=== PATIENT | female | born 1940 | race Caucasian/White ===

== ENCOUNTER 2019-09-09 13:38 | Inpatient (IN) | payer OTHER ==
--- NOTE | 2019-09-09 14:15 | PDOC ---
History of Present Illness - General Chief Complaint: Irregular Heart Beat Stated Complaint: RAPID HEART RATE Time Seen by Provider: 09/09/19 14:04 History Source: Patient Exam Limitations: No Limitations - History of Present Illness Initial Comments: 79 yo F with a hx CVA with subsequent hemiplegia, atrial fibrillation (on xarelto), CHF, HLD, dementia, COPD, anemia, hypothyroidism, HTN, DM, and GERD presents to the emergency department from [facility] for tachycardia. Per the geriatric nursing assistant (Argelia), the patient had a HR this afternoon in the 180s. The patient was given 15 mg of IV diltiazem. She was given a one time stat order for digoxin 250 mcg at the [place] today. Per the geriatric nursing assistant, she had a PICC line for hydration and vancomycin for an infection. Per the patient (alert and oriented to self and place only), she feels fine and denies the following: headaches, lightheadedness, chest pain, palpitations, SOB, nausea, vomiting, abdominal pain, dysuria, hematuria, diarrhea, and leg pain/swelling. Meds: digoxin: 125 mcg daily, diltiazem: 180 mg ER daily, furosemide 40 mg BID, levothyroxine 25 mcg, metformin 500 mg daily,, on prednisone Past History - Past Medical History Allergies/Adverse Reactions: Allergies Allergy/AdvReac Type Severity Reaction Status Date / Time No Known Allergies Allergy Verified 02/08/16 17:52 Home Medications: Ambulatory Orders Albuterol 0.083% Nebulizer Gail [Ventolin 0.083% Nebulizer Soln -] 1 neb NEB QID 02/08/16 Ammonium Lactate Lotion [Lac-Hydrin 12] 1 applic TP ASDIR 02/08/16 Diltiazem HCl [Diltiazem 24Hr ER (Cd)] 180 mg PO DAILY 02/08/16 Docusate Sodium [Colace -] 100 mg PO BID 02/08/16 Ferrous Sulfate 325 mg PO DAILY 02/08/16 Polyethylene Glycol 3350 [Gavilax] 17 gm PO DAILY 02/08/16 metFORMIN HCL [Metformin HCl] 500 mg PO DAILY 02/08/16 Acetaminophen [Tylenol] 650 mg PO Q6H PRN #0 02/11/16 Ferrous Sulfate [Feosol] 325 mg PO DAILY ud 02/11/16 Morphine *Sr* [Ms Contin -] 15 mg PO BID tablet.sa MDD 2 tabs 02/11/16 Ondansetron [Zuplenz] 4 mg PO BID PRN #0 02/11/16 Oxycodone HCl/Acetaminophen [Percocet 5-325 mg Tablet] 1 combo PO Q8H PRN #0 tablet MDD 3 tabs 02/11/16 Warfarin Na [Coumadin -] 2 mg PO DAILY@1800 tablet 02/11/16 levoFLOXacin [Levaquin -] 250 mg PO DAILY@0600 #5 tablet 02/11/16 Anemia: Yes Asthma: Yes Cancer: (colon per GI consult) Cardiac Disorders: (pt unaware) CVA: Yes (L hemiparesis) COPD: Yes (COPD) CHF: No Dementia: No Diabetes: Yes (per chart) GI Disorders: No Disorders: No HTN: Yes (per MD note) Hypercholesterolemia: No Liver Disease: No Seizures: No Thyroid Disease: No - Surgical History Abdominal Surgery: (hernia repair) Appendectomy: No Cardiac Surgery: No Cholecystectomy: No Lung Surgery: No Neurologic Surgery: No Orthopedic Surgery: No - Immunization History Immunization Up to Date: No - Psycho Social/Smoking Cessation Hx Smoking History: Current some day smoker Have you smoked in the past 12 months: No If you are a former smoker, when did you quit?: 1 year ago Information on smoking cessation initiated: No Hx Alcohol Use: No Drug/Substance Use Hx: No Substance Use Type: None Hx Substance Use Treatment: No Review of Systems - Review of Systems Able to Perform ROS?: Yes Is the patient limited Singaporean proficient: No Constitutional: No: Chills, Fever, Weakness HEENTM: No: Eye Pain, Ear Pain, Nose Pain, Throat Pain, Mouth Pain Respiratory: No: Cough, Shortness of Breath, Hemoptysis Cardiac (ROS): No: Chest Pain, Lightheadedness, Palpitations, Chest Tightness ABD/GI: No: Constipated, Diarrhea, Nausea, Rectal Bleeding, Vomiting, Tarry Stools : No: Burning, Hematuria Musculoskeletal: No: Back Pain Integumentary: No: Bruising, Rash Neurological: No: Headache, Numbness Psychiatric: No: Change in Appetite Endocrine: No: Unexplained Weight Loss Hematologic/Lymphatic: No: Anemia *Physical Exam - Vital Signs Last Vital Signs Temp Pulse Resp BP Pulse Ox 97.5 F L 106 H 18 101/67 99 09/09/19 13:41 09/09/19 13:41 09/09/19 13:41 09/09/19 13:41 09/09/19 13:41 - Physical Exam General Appearance: Yes: Nourished, Appropriately Dressed, Other. No: Apparent Distress, Intoxicated HEENT: positive: EOMI, ROSA, Normal Voice, Symmetrical, Pharynx Normal, Hearing Grossly Normal. negative: Pale Conjunctivae, Scleral Icterus (R), Scleral Icterus (L), Muffled/Hoarse voice, Pharyngeal Erythema, Tonsillar Exudate, Tonsillar Erythema, Nasal Congestion, Rhinorrhea, Sinus Tenderness, Excessive drooling Neck: positive: Trachea midline, Supple. negative: Tender, Lymphadenopathy (R), Lymphadenopathy (L) Respiratory/Chest: positive: Decreased Breath Sounds. negative: Chest Tender, Respiratory Distress, Accessory Muscle Use Cardiovascular: positive: Regular Rhythm, Regular Rate, S1, S2. negative: Systolic Murmur Gastrointestinal/Abdominal: positive: Normal Bowel Sounds, Flat, Soft. negative: Tender, Distended, Guarding, Rebound Lymphatic: negative: Adenopathy Musculoskeletal: positive: Normal Inspection. negative: CVA Tenderness, Vertebral Tenderness Extremity: positive: Normal Capillary Refill, Normal Range of Motion, Other (muscle wasting bilaterally). negative: Swelling, Calf Tenderness Integumentary: positive: Normal Color, Dry, Warm Neurologic: positive: Alert, Normal Mood/Affect. negative: Fully Oriented (oriented to place and self) ED Treatment Course - LABORATORY CBC & Chemistry Diagram: 09/11/19 10:37 09/11/19 10:37 Medical Decision Making - Medical Decision Making 09/09/19 14:35 79 yo F with a hx CVA with subsequent hemiplegia, atrial fibrillation (on xarelto), CHF, HLD, dementia, COPD, anemia, hypothyroidism, HTN, DM, and GERD presents to the emergency department from [facility] for tachycardia. Initial vitals: Initial Vital Signs Temp Pulse Resp BP Pulse Ox 97.5 F L 106 H 18 101/67 100 09/09/19 13:41 09/09/19 13:41 09/09/19 13:41 09/09/19 13:41 09/09/19 13:41 Work up: patient presents to the emergency department with afib with RVR with abx of vanco and zosyn as of 08/24 for suspected pulmonary process with positive cultures of gram positive cocci 20 WBC noted on 09/07 Laboratory Tests 09/09/19 09/09/19 09/09/19 15:10 15:10 15:23 WBC 18.9 H RBC 4.91 Hgb 13.7 Hct 42.9 MCV 87.4 MCH 27.9 D MCHC 32.0 RDW 16.1 H Plt Count 394 MPV 8.7 D Absolute Neuts (auto) 18.0 H Total Counted 100 Neutrophils % 95.3 H D Neutrophils % (Manual) 93.0 H Lymphocytes % 3.1 L D Lymphocytes % (Manual) 4.0 L Monocytes % 1.5 L Monocytes % (Manual) 2 L Eosinophils % 0.0 D Basophils % 0.1 Nucleated RBC % 0 Metamyelocytes 1 Platelet Estimate Adequate Platelet Comment No clumping noted PT with INR INR Sodium 135 L Potassium 4.9 Chloride 94 L Carbon Dioxide 32 Anion Gap 8 BUN 18.7 H Creatinine 1.2 Est GFR (CKD-EPI)AfAm 50.13 Est GFR (CKD-EPI)NonAf 43.25 Random Glucose 200 H Calcium 8.8 Magnesium 1.6 L Total Bilirubin 1.0 AST 69 H ALT 89 H Alkaline Phosphatase 111 Creatine Kinase 183 Creatine Kinase Index 1.3 CK-MB (CK-2) 2.5 Troponin I 1.43 H* B-Natriuretic Peptide 67025.2 H Total Protein 8.5 H Albumin 3.8 TSH 1.99 Free T4 1.34 Urine Color Urine Appearance Urine pH Ur Specific [place] Urine Protein Urine Glucose (UA) Urine Ketones Urine Blood Urine Nitrite Urine Bilirubin Urine Urobilinogen Ur Leukocyte Esterase Urine WBC (Auto) Urine RBC (Auto) Urine Casts (Auto) U Pathogenic Cast Auto U Epithel Cells (Auto) Urine Bacteria (Auto) Digoxin 0.51 L 09/09/19 09/09/19 15:23 15:50 WBC RBC Hgb Hct MCV MCH MCHC RDW Plt Count MPV Absolute Neuts (auto) Total Counted Neutrophils % Neutrophils % (Manual) Lymphocytes % Lymphocytes % (Manual) Monocytes % Monocytes % (Manual) Eosinophils % Basophils % Nucleated RBC % Metamyelocytes Platelet Estimate Platelet Comment PT with INR 15.90 H INR 1.34 H Sodium Potassium Chloride Carbon Dioxide Anion Gap BUN Creatinine Est GFR (CKD-EPI)AfAm Est GFR (CKD-EPI)NonAf Random Glucose Calcium Magnesium Total Bilirubin AST ALT Alkaline Phosphatase Creatine Kinase Creatine Kinase Index CK-MB (CK-2) Troponin I B-Natriuretic Peptide Total Protein Albumin TSH Free T4 Urine Color Yellow Urine Appearance Turbid Urine pH 5.5 Ur Specific [place] 1.019 Urine Protein 2+ H Urine Glucose (UA) Negative Urine Ketones Negative Urine Blood 3+ H Urine Nitrite Negative Urine Bilirubin Negative Urine Urobilinogen 0.2 Ur Leukocyte Esterase Negative Urine WBC (Auto) 205.4 Urine RBC (Auto) 47 Urine Casts (Auto) 2 U Pathogenic Cast Auto U Epithel Cells (Auto) 3.6 Urine Bacteria (Auto) 8.4 Digoxin patient noted to have an elevated troponin in the setting of asymptomatic status. the patient likely has an elevation of troponin secondary to demand ischemia. EKG: Atrial fibrillation with RVR with PVCs. TWI in lead V3. Patient received 15 mg of diltiazem initially from EMS. The patient received an additional 30 mg of diltiazem PO. The patient has consistent rates in the 130s-140s, thus requiring additional diltiazem. 10 mg of IV dilitiazem was given with adequate rate control. tsh and t4 within normal limits BNP elevated with an elevated leukocytosis with a negative uA CXR was negative for acute process Patient was started on aspirin for elevated troponin; will withhold heparin as this is likely demand ischemia. Patient was re-assessed. The patient states she has no chest pain. On abdomen exam, she had mild tenderness to the RLQ. Patient was endorsed to [facility] team and accepted for admission. They were made aware of the pending CT and the elevation in troponin Discharge - Discharge Information Problems reviewed: Yes Clinical Impression/Diagnosis: Rapid atrial fibrillation - Follow up/Referral - Patient Discharge Instructions - Post Discharge Activity
--- NOTE | 2019-09-09 14:31 | PDOC ---
*Physical Exam - Vital Signs Last Vital Signs Temp Pulse Resp BP Pulse Ox 97.5 F L 106 H 18 101/67 99 09/09/19 13:41 09/09/19 13:41 09/09/19 13:41 09/09/19 13:41 09/09/19 13:41 Heart Score/ECG Review - ECG Impressions Comment:: 09/09/19 14:31 Afib with HR 122 TWI in anterior/lateral leads - new since 2015, no ELMA/STD ED Treatment Course - LABORATORY CBC & Chemistry Diagram: 09/10/19 06:10 09/10/19 06:10 Medical Decision Making - Medical Decision Making 09/09/19 14:31 Patient seen as pre-attending with Dr. Pool (PGY-2) and Dr. Monroy (Attending) 79 y/o female with a PMHx of AFib, bacteremia w/uknown source here with AFib w/ RVR Patient given IV Dilitiazem en route - HR 120's-130's No active complaints of CP, shortness of breath. Troponin elevated 1.3 - likely 2/2 to ischemic demand 2/2 to uncontrolled - will aggressively rate control s/p PO Dili + additional 10 mg IV Push EKG with TWI in anterior leads - new since 2015 - trend Troponin 09/09/19 17:30 Mild RUQ TTP w/o peritoneal sign - leukocytosis 18.9 CTAP pending HR 110's s/p PO/IV; close monitoring of HR 09/09/19 19:13 CTAP pending, patient being followed by Dr. Pool (PGY-1) and Dr. Duong ( Attending) Repeat Troponin sent to lab, result pending Discharge - Discharge Information Problems reviewed: Yes Clinical Impression/Diagnosis: Rapid atrial fibrillation - Follow up/Referral - Patient Discharge Instructions - Post Discharge Activity
[2019-09-09 15:28] LABS: BASO % 0.1 % (0-2.0); HEMATOCRIT 42.9 % (32.4-45.2); HEMOGLOBIN 13.7 GM/dL (10.7-15.3); LYMPH % 3.1 % (8-40); MCH 27.9 pg (25.7-33.7); MEAN CELL VOLUME 87.4 fl (80-96); MEAN PLT VOLUME 8.7 fl (7.5-11.1); MONO % 1.5 % (3.8-10.2); NEUT % 95.3 % (42.8-82.8); PLATELET COUNT 394 K/MM3 (134-434); RBC 4.91 M/mm3 (3.60-5.2); RDW 16.1 % (11.6-15.6); WHITE BLOOD COUNT 18.9 K/mm3 (4.0-10.0)
[2019-09-09 15:50] LABS: INR 1.34 (0.83-1.09); PROTHROMBIN TIME (PATIENT) 15.9 SEC (9.7-13.0)
--- NOTE | 2019-09-09 15:53 | PDOC ---
Documentation entered by Consuelo Heredia SCRIBE, acting as scribe for Yoandy Monroy MD. Yoandy Monroy MD: This documentation has been prepared by the Giovanna giron Xhesika, SCRIBE, under my direction and personally reviewed by me in its entirety. I confirm that the documentation accurately reflects all work, treatment, procedures, and medical decision making performed by me. Attending Attestation - Resident Resident Name: CorineWyatt - ED Attending Attestation I have performed the following: I have examined & evaluated the patient, The case was reviewed & discussed with the resident, I agree w/resident's findings & plan, Exceptions are as noted - HPI HPI: 09/09/19 15:24 The patient is a 79 y/o female with a PMH of subsequent hemiplegia, atrial fibrillation (on xarelto), CHF, HLD, dementia, COPD, anemia, hypothyroidism, HTN , DM, and GERD who presents to the ED BIBA from [facility] for tachycardia. Allergy: NKDA Social: Denies alcohol, cigarette or drug use. - Physicial Exam PE: 09/09/19 15:24 Vitals: Triage Vital signs reviewed General Appearance: no acute distress, well nourished well developed, Chest Wall: Nontender Cardiac: +irregular regular. +tachy, no murmurs, no rubs, no gallops, Lungs: Clear to auscultation bilateral, good air movement bilaterally, Abdomen: Soft, nondistended, normal bowel sounds, nontender to palpation Skin: Warm and dry, no rashes or lesions, no petechiae - Critical Care Time Total Critical Care Time: 35 Critical Care Statement: The care of this patient involved high complexity decision making to prevent further life threatening deterioration of the patient 's condition and/or to evaluate & treat vital organ system(s) failure or risk of failure. - Medical Decision Making 09/09/19 16:59 79 years old presents to the ED with tachycardia known A. fib currently in A. fib with RVR patient given IV diltiazem No significant improvement second dose given his along with p.o. Cardizem Patient with elevated white blood cell count moderate right-sided abdominal pain on examination Troponin noted to be elevated likely secondary to demand at this time Aspirin given CT pending Patient admitted to medicine for further management 09/10/19 11:32
[2019-09-09 16:01] LABS: EPI CELLS 3.6 /HPF (0-5/HPF); HYALINE CASTS 2 /lpf (0-8); PH,URINE 5.5 (5.0-8.0); URINE APPEARANCE TURBID; URINE BACTERIA 8.4 /hpf (NEGATIVE); URINE BILIRUBIN NEGATIVE (NEGATIVE); URINE COLOR YELLOW; URINE GLUCOSE (UA) NEGATIVE (NEGATIVE); URINE KETONE NEGATIVE (NEGATIVE); URINE LEUK ESTERASE NEGATIVE (NEGATIVE); URINE NITRITE NEGATIVE (NEGATIVE); URINE PROTEIN 2+ (NEGATIVE); URINE RBC 47 /hpf (0-4); URINE UROBILINOGEN 0.2 mg/dL (0.2-1.0)
[2019-09-09] MEDS ORDERED: dilTIAZem HCL 30 MG TABLET PO ONE (16:06)
[2019-09-09 16:10] LABS: ALBUMIN 3.8 g/dl (3.4-5.0); BLOOD UREA NITROGEN 18.7 mg/dL (7-18); CALCIUM 8.8 mg/dL (8.5-10.1); CREATININE 1.2 mg/dL (0.55-1.3); MAGNESIUM 1.6 mg/dL (1.8-2.4); N-TERMINAL BNP 30266.2 pg/ml (5-450); POTASSIUM 4.9 mmol/L (3.5-5.1); TOT PROT 8.5 g/dl (6.4-8.2)
[2019-09-09] MEDS ORDERED: dilTIAZem HCL 30 MG TABLET ONE (16:17)
[2019-09-09] MEDS ORDERED: ASPIRIN 325 MG TABLET PO ONE (16:18)
[2019-09-09] MEDS ORDERED: dilTIAZem HCL 50 MG/10 ML - 10 ML VIAL IVPUSH ONE ×2 (16:18→16:28)
[2019-09-09 16:28] LABS: PLATELET ESTIMATE ADEQUATE
[2019-09-09 16:31] LABS: URINE WBC 205.4 /hpf (0-5)
[2019-09-09] MEDS ORDERED: ASPIRIN 325 MG ENTERIC COATED TABLET (FP) ONE (16:44)
[2019-09-09] MEDS ORDERED: dilTIAZem HCL 125 MG/25 ML - 25 ML VIAL ONE ×2 (16:44→17:24)
[2019-09-09] MEDS ORDERED: FUROSEMIDE 40 MG/4 ML INJECTABLE VIAL IVPUSH ONE (16:51)
--- NOTE | 2019-09-09 17:09 | HP ---
Admitting History and Physical - Primary Care Physician PCP: Marquita Martin S - Admission Chief Complaint: HR 180s History of Present Illness: 79 year old female with extensive PMH presents to the ED from [facility] with rapid heart rate. she denies chest pains, pressure, n/v/d. she states her HR is always high, she doesnt know why she had to come here. The NURSERY TEACHER that sent her here states she had positive blood cultures for gram + cocci on 08/24/2019 and was started on vanco and zosyn for sob? no source was identified, however patient continued on broad spectrum antbx. today was found with HR 180s per nursing supervisor [address] road, was given diltiazem in the EMS and digoxin in the ER. she is getting IVF bolus as HR 130s. she has PICC to [facility]. on 09/07/2019 her WBC 20k. 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) Cardiovascular: Yes: HTN Pulmonary: Yes: COPD Gastrointestinal: Yes: Other (Incisional hernia, s/p repair 10yrs ago) Heme/Onc: Yes: Cancer Musculoskeletal: Yes: Osteoarthritis - Past Surgical History Past Surgical History: Yes: Colectomy, Hernia Repair, Tubal Ligation - Smoking History Smoking history: Current some day smoker Have you smoked in the past 12 months: No If you are a former smoker, when did you quit?: 1 year ago - Alcohol/Substance Use Hx Alcohol Use: No History of Substance Use: reports: None - Social History Usual Living Arrangement: Yes: Skilled Nursing ADL: Support Services History of Recent Travel: No Home Medications - Allergies Allergies/Adverse Reactions: Allergies Allergy/AdvReac Type Severity Reaction Status Date / Time No Known Allergies Allergy Verified 02/08/16 17:52 - Home Medications Home Medications: Ambulatory Orders Albuterol 0.083% Nebulizer Gail [Ventolin 0.083% Nebulizer Soln -] 1 neb NEB QID 02/08/16 Ammonium Lactate Lotion [Lac-Hydrin 12] 1 applic TP ASDIR 02/08/16 Diltiazem HCl [Diltiazem 24Hr ER (Cd)] 180 mg PO DAILY 02/08/16 Docusate Sodium [Colace -] 100 mg PO BID 02/08/16 Ferrous Sulfate 325 mg PO DAILY 02/08/16 Polyethylene Glycol 3350 [Gavilax] 17 gm PO DAILY 02/08/16 metFORMIN HCL [Metformin HCl] 500 mg PO DAILY 02/08/16 Acetaminophen [Tylenol] 650 mg PO Q6H PRN #0 02/11/16 Ferrous Sulfate [Feosol] 325 mg PO DAILY ud 02/11/16 Morphine *Sr* [Ms Contin -] 15 mg PO BID tablet.sa MDD 2 tabs 02/11/16 Ondansetron [Zuplenz] 4 mg PO BID PRN #0 02/11/16 Oxycodone HCl/Acetaminophen [Percocet 5-325 mg Tablet] 1 combo PO Q8H PRN #0 tablet MDD 3 tabs 02/11/16 Warfarin Na [Coumadin -] 2 mg PO DAILY@1800 tablet 02/11/16 levoFLOXacin [Levaquin -] 250 mg PO DAILY@0600 #5 tablet 02/11/16 Family Medical History Family History: Unable to Obtain Physical Examination Vital Signs: Vital Signs Temperature 97.5 F L 09/09/19 13:41 Pulse Rate 106 H 09/09/19 13:41 Respiratory Rate 18 09/09/19 13:41 Blood Pressure 101/67 09/09/19 13:41 O2 Sat by Pulse Oximetry (%) 99 09/09/19 13:41 Constitutional: Yes: Well Nourished, No Distress HENT: Yes: Atraumatic, Normocephalic Neck: Yes: Supple Cardiovascular: Yes: Tachycardia, Pulse Irregular Respiratory: Yes: On Nasal O2, Rales Gastrointestinal: Yes: Normal Bowel Sounds, Soft Musculoskeletal: Yes: Muscle Weakness Integumentary: Yes: WNL Neurological: Yes: Alert Labs: CBC, BMP 09/09/19 15:10 09/09/19 15:10 Problem List - Problems (1) Sepsis Assessment/Plan: ID EVAL CARD EVAL PULM EVAL REMOVE PICC- CULTURE TIP IV ANTX CHECK PROCALCITONIN CT ABD ORDERED UA NEG BLOOD CULTURES/URINE CULTURES DOSE VANCO Code(s): A41.9 - SEPSIS, UNSPECIFIED ORGANISM (2) Rapid atrial fibrillation Assessment/Plan: CARD EVAL IV CARDIZEM CHECK DIG LEVEL ? R/T SEPSIS Code(s): I48.91 - UNSPECIFIED ATRIAL FIBRILLATION (3) Dementia Code(s): F03.90 - UNSPECIFIED DEMENTIA WITHOUT BEHAVIORAL DISTURBANCE (4) CHF (congestive heart failure) Assessment/Plan: BNP 30K IV LASIX CARD EVAL Code(s): I50.9 - HEART FAILURE, UNSPECIFIED (5) Hypomagnesemia Assessment/Plan: REPLETE 2 GM Code(s): E83.42 - HYPOMAGNESEMIA (6) Anemia Code(s): D64.9 - ANEMIA, UNSPECIFIED (7) Diabetes Assessment/Plan: RESUME HOME MEDS CHECK A1C SLIDING SCALE Code(s): E11.9 - TYPE 2 DIABETES MELLITUS WITHOUT COMPLICATIONS (8) HTN (hypertension) Assessment/Plan: MONITOR Code(s): I10 - ESSENTIAL (PRIMARY) HYPERTENSION (9) History of colon cancer Code(s): Z85.038 - PERSONAL HISTORY OF MALIGNANT NEOPLASM OF LARGE INTESTINE (10) Hypothyroid Code(s): E03.9 - HYPOTHYROIDISM, UNSPECIFIED
[2019-09-09] MEDS ORDERED: VANCOMYCIN 1 GRAM (PRE-DOCKED) 1,000 MG/250 ML BAG IVPB ONE (17:15)
[2019-09-09] MEDS ORDERED: MAGNESIUM 1GM/D5W - 2 GM/200 ML IVPB IVPB ONE (17:23)
[2019-09-09] MEDS ORDERED: FUROSEMIDE 40 MG/4 ML INJECTABLE VIAL ONE (17:23)
[2019-09-09] MEDS ORDERED: dilTIAZem HCL 50 MG/10 ML - 10 ML VIAL ONE (17:24)
[2019-09-09] MEDS: DILTIAZEM INJECTION 125 MG in SODIUM CHLORIDE 100 ML IVPB SCH (19:36)
[2019-09-09] MEDS: ALBUTEROL SO4 2.5/IPRATROPIUM 0.5 INH SOL 3 ML VIAL.NEB. NEB SCH (20:45)
[2019-09-09] MEDS: INSULIN SLIDING SCALE (NOVOLOG) 1 VIAL SQ SCH (23:20)
[2019-09-10] MEDS: metFORMIN HCL 500 MG TABLET (FP) PO SCH (06:10)
[2019-09-10] MEDS: LEVOTHYROXINE NA 25 MCG TABLET (FP) PO SCH (06:10)
[2019-09-10] MEDS: INSULIN SLIDING SCALE (NOVOLOG) 1 VIAL SQ SCH ×4 (06:13→22:09)
[2019-09-10 06:57] LABS: HEMATOCRIT 38.4 % (32.4-45.2); HEMOGLOBIN 12.4 GM/dL (10.7-15.3); MCH 28.3 pg (25.7-33.7); MCHC 32.3 g/dl (32.0-36.0); MEAN CELL VOLUME 87.5 fl (80-96); MEAN PLT VOLUME 8.2 fl (7.5-11.1); PLATELET COUNT 409 K/MM3 (134-434); RBC 4.39 M/mm3 (3.60-5.2); RDW 16.2 % (11.6-15.6); WHITE BLOOD COUNT 17.7 K/mm3 (4.0-10.0)
[2019-09-10] MEDS: ALBUTEROL SO4 2.5/IPRATROPIUM 0.5 INH SOL 3 ML VIAL.NEB. NEB SCH ×4 (07:41→20:20)
[2019-09-10 07:44] LABS: ALBUMIN 3.1 g/dl (3.4-5.0); BILIRUBIN,TOTAL 0.4 mg/dL (0.2-1); BLOOD UREA NITROGEN 18.9 mg/dL (7-18); CALCIUM 8.1 mg/dL (8.5-10.1); CREATININE 1.1 mg/dL (0.55-1.3); MAGNESIUM 2.2 mg/dL (1.8-2.4); PHOSPHOROUS 2.6 mg/dL (2.5-4.9); POTASSIUM 3.1 mmol/L (3.5-5.1); TOT PROT 6.6 g/dl (6.4-8.2)
--- NOTE | 2019-09-10 08:12 | CON.CARD ---
Consult Consult Specialty:: Cardiology Referred by:: afib Reason for Consultation:: afib - History of Present Illness Chief Complaint: WBC elevated History of Present Illness: 79 year old female with a pmhx of CVA with hemiplelgia, afib on rivaroxaban, CHF , hld, dementia, copd, anemia, hypothyroidism, htn, dm, and gerd sent from [facility] with elevated WBC/+blood Cx's and tachycardia. Patient without complaints except she feels a little wheezy. No chest pain, palpitations, or edema. No pnd or orthopnea. EKG admission afib with VR 122bpm, nonspecific T wave abnormalities - History Source History Provided By: Patient, Medical Record - Past Medical History REGULATORY LEAD: Yes: CVA, Dementia (mild) Cardio/Vascular: Yes: HTN Pulmonary: Yes: COPD Gastrointestinal: Yes: Other (Incisional hernia, s/p repair 10yrs ago) Musculoskeletal: Yes: Osteoarthritis - Past Surgical History Past Surgical History: Yes: Colectomy, Hernia Repair, Tubal Ligation - Alcohol/Substance Use Hx Alcohol Use: No History of Substance Use: reports: None - Smoking History Smoking history: Former smoker Have you smoked in the past 12 months: Yes Aproximately how many cigarettes per day: 3 If you are a former smoker, when did you quit?: 5 months ago - Social History ADL: Support Services History of Recent Travel: No Home Medications - Allergies Allergies/Adverse Reactions: Allergies Allergy/AdvReac Type Severity Reaction Status Date / Time No Known Allergies Allergy Verified 02/08/16 17:52 - Home Medications Home Medications: Ambulatory Orders Albuterol 0.083% Nebulizer Gail [Ventolin 0.083% Nebulizer Soln -] 1 neb NEB QID 02/08/16 Ammonium Lactate Lotion [Lac-Hydrin 12] 1 applic TP ASDIR 02/08/16 Diltiazem HCl [Diltiazem 24Hr ER (Cd)] 180 mg PO DAILY 02/08/16 Docusate Sodium [Colace -] 100 mg PO BID 02/08/16 Ferrous Sulfate 325 mg PO DAILY 02/08/16 Polyethylene Glycol 3350 [Gavilax] 17 gm PO DAILY 02/08/16 metFORMIN HCL [Metformin HCl] 500 mg PO DAILY 02/08/16 Acetaminophen [Tylenol] 650 mg PO Q6H PRN #0 02/11/16 Ferrous Sulfate [Feosol] 325 mg PO DAILY ud 02/11/16 Morphine *Sr* [Ms Contin -] 15 mg PO BID tablet.sa MDD 2 tabs 02/11/16 Ondansetron [Zuplenz] 4 mg PO BID PRN #0 02/11/16 Oxycodone HCl/Acetaminophen [Percocet 5-325 mg Tablet] 1 combo PO Q8H PRN #0 tablet MDD 3 tabs 02/11/16 Warfarin Na [Coumadin -] 2 mg PO DAILY@1800 tablet 02/11/16 levoFLOXacin [Levaquin -] 250 mg PO DAILY@0600 #5 tablet 02/11/16 Vital Signs: Vital Signs Temperature 98.1 F 09/10/19 07:51 Pulse Rate 110 H 09/10/19 07:51 Respiratory Rate 09/10/19 07:51 Blood Pressure 149/98 09/10/19 07:51 O2 Sat by Pulse Oximetry (%) 94 L 09/09/19 21:25 Constitutional: Yes: No Distress Neck: Yes: Supple Respiratory: Yes: Wheezes Gastrointestinal: Yes: Soft Cardiovascular: Yes: Pulse Irregular JVD: No Carotid Bruit: No Heart Sounds: Yes: S1, S2 Edema: No - Other Data Labs, Other Data: CBC, BMP 09/10/19 06:10 09/10/19 06:10 INR, PTT INR 1.34 (0.83-1.09) H 09/09/19 15:23 Troponin, BNP 09/09/19 09/09/19 09/09/19 15:10 19:53 21:16 Troponin I 1.43 H* 0.84 H* 1.02 H* B-Natriuretic Peptide 41141.2 H Troponin, BNP 09/09/19 09/09/19 09/09/19 15:10 19:53 21:16 Troponin I 1.43 H* 0.84 H* 1.02 H* B-Natriuretic Peptide 11156.2 H Imaging - Results Chest X-ray: Report Reviewed EKG: Image Reviewed Problem List - Problems (1) CHF (congestive heart failure) Code(s): I50.9 - HEART FAILURE, UNSPECIFIED (2) Rapid atrial fibrillation Code(s): I48.91 - UNSPECIFIED ATRIAL FIBRILLATION (3) Sepsis Code(s): A41.9 - SEPSIS, UNSPECIFIED ORGANISM Assessment/Plan 79 year old female with a pmhx of CVA with hemiplelgia, afib on rivaroxaban, CHF , hld, dementia, copd, anemia, hypothyroidism, htn, dm, and gerd sent from [facility] with elevated WBC/+blood Cx's and tachycardia. Patient without complaints except she feels a little wheezy. No chest pain, palpitations, or edema. No pnd or orthopnea. EKG admission afib with VR 122bpm, nonspecific T wave abnormalities WBC 18 K 3.1 BNP 30k Trop 1 with normal CK TSH wnl Cr 1.1 1) Afib Patient currently adequately rate controlled on tele with HR 90s averaging. Would stop IV diltiazem and change back to her home PO dose and uptitrate po dose as needed. Continue digoxin On rivaroxaban for AC 2) CHF -On furosemide PO at home. Some congestion with bnp elevated and Cr 1.1 Furosemide 40mg IV daily Monitor I/Os and lytes Keep K >4 and M >2 Elevated troponin with normal CK, no chest pain, and no acute ekg changes likely in setting of chf. Plan for routine echocardiogram on Thursday. 3) COPD Steroids as per primary team 4) ID Elevated WBC On antibiotics as per primary team. Etiology unclear. UA negative, CXR no infection. F/u primary team rec's
[2019-09-10] MEDS: FERROUS SO4 325 MG TABLET (FP) PO SCH (10:23)
[2019-09-10] MEDS: MEMANTINE HCL 5 MG TABLET (UD) PO SCH (10:23)
[2019-09-10] MEDS: predniSONE 20 MG TABLET (UD) PO SCH (10:23)
[2019-09-10] MEDS: DIGOXIN 0.125 MG TABLET (FP) PO SCH (10:24)
[2019-09-10] MEDS: POLYETHYLENE GLYCOL 3350 119 GM BTL PO SCH (10:25)
[2019-09-10] MEDS: DILTIAZEM INJECTION 125 MG in SODIUM CHLORIDE 100 ML IVPB SCH (10:42)
[2019-09-10] MEDS ORDERED: KCL 10 MEQ IVPB 10 MEQ/100 ML INFUS.BAG IVPB SCH (11:45)
[2019-09-10] MEDS ORDERED: POTASSIUM CHLORIDE TABS 10 MEQ TABLET.ER (FP) PO ONE (11:57)
--- NOTE | 2019-09-10 12:10 | PN ---
Progress Note, Physician Chief Complaint: EVENTS AND NOTES REVIEWED COMFORTABLE - Current Medication List Current Medications: Active Medications Acetaminophen (Tylenol -) 650 mg PO Q6H PRN PRN Reason: FEVER Albuterol/Ipratropium (Duoneb -) 1 amp NEB RQID [facility] Last Admin: 09/10/19 11:45 Dose: 1 amp Digoxin (Lanoxin -) 0.125 mg PO DAILY [facility] Last Admin: 09/10/19 10:24 Dose: 0.125 mg Diltiazem HCl (Cardizem Cd -) 180 mg PO DAILY [facility] Ferrous Sulfate (Feosol -) 325 mg PO DAILY [facility] Last Admin: 09/10/19 10:23 Dose: 325 mg Diltiazem HCl 125 mg/ Sodium (Chloride) 125 mls @ 5 mls/hr IVPB TITR [facility]; Protocol Last Admin: 09/10/19 10:42 Dose: 5 mg/hr, 5 mls/hr Potassium Chloride (Potassium Chloride 10 Meq Premix Ivpb -) 10 meq in 100 mls @ 100 mls/hr IVPB Q60M [facility] Stop: 09/10/19 12:44 Insulin Aspart (Novolog Vial Sliding Scale -) 1 vial SQ ACHS [facility]; Protocol Last Admin: 09/10/19 11:31 Dose: Not Given Levothyroxine Sodium (Synthroid -) 25 mcg PO BK [facility] Last Admin: 09/10/19 06:10 Dose: 25 mcg Memantine (Namenda -) 5 mg PO DAILY [facility] Last Admin: 09/10/19 10:23 Dose: 5 mg Metformin HCl (Glucophage -) 500 mg PO BK [facility] Last Admin: 09/10/19 06:10 Dose: 500 mg Polyethylene Glycol (Miralax (For Daily Use) -) 17 gm PO DAILY [facility] Last Admin: 09/10/19 10:25 Dose: 17 grams Prednisone (Deltasone -) 60 mg PO DAILY [facility] Last Admin: 09/10/19 10:23 Dose: 60 mg Rivaroxaban (Xarelto) 20 mg PO DAILY@1800 [facility] - Objective Vital Signs: Vital Signs Temperature 98.1 F 09/10/19 07:51 Pulse Rate 108 H 09/10/19 10:42 Respiratory Rate 20 09/10/19 07:51 Blood Pressure 130/74 09/10/19 10:42 O2 Sat by Pulse Oximetry (%) 94 L 09/09/19 21:25 Constitutional: Yes: Mild Distress Cardiovascular: Yes: Tachycardia, Pulse Irregular Respiratory: Yes: Diminished, On Nasal O2 Gastrointestinal: Yes: Soft, Abdomen, Obese Genitourinary: Yes: Incontinence Musculoskeletal: Yes: Muscle Weakness Neurological: Yes: Pre-Existing Deficit Psychiatric: Yes: Other Labs: CBC, BMP 09/10/19 06:10 09/10/19 06:10 INR, PTT INR 1.34 (0.83-1.09) H 09/09/19 15:23 Problem List - Problems (1) CHF (congestive heart failure) Code(s): I50.9 - HEART FAILURE, UNSPECIFIED (2) Dementia Code(s): F03.90 - UNSPECIFIED DEMENTIA WITHOUT BEHAVIORAL DISTURBANCE (3) Rapid atrial fibrillation Code(s): I48.91 - UNSPECIFIED ATRIAL FIBRILLATION (4) Sepsis Code(s): A41.9 - SEPSIS, UNSPECIFIED ORGANISM (5) Anemia Code(s): D64.9 - ANEMIA, UNSPECIFIED (6) Asthma Code(s): J45.909 - UNSPECIFIED ASTHMA, UNCOMPLICATED (7) Diabetes Code(s): E11.9 - TYPE 2 DIABETES MELLITUS WITHOUT COMPLICATIONS (8) HTN (hypertension) Code(s): I10 - ESSENTIAL (PRIMARY) HYPERTENSION (9) History of colon cancer Code(s): Z85.038 - PERSONAL HISTORY OF MALIGNANT NEOPLASM OF LARGE INTESTINE (10) Hypothyroid Code(s): E03.9 - HYPOTHYROIDISM, UNSPECIFIED (11) RBBB Code(s): I45.10 - UNSPECIFIED RIGHT BUNDLE-BRANCH BLOCK Assessment/Plan RAPID AFIB ON CARDIZEM DRIP CHANGING TO PO CARDIZEM CD 180MG REPLETE KCL PT EVAL CARDIO EVAL SEPSIS, WAS ON VANCO/ZOSYN FOR GRAM + COCCI IN BLOOD AT [facility] PICC LINE PLACED AT [facility] REPEAT CULTURES/ID CONSULT ON TELEMETRY CONTINUE
--- NOTE | 2019-09-10 13:35 | EKG ---
Test Reason : Blood Pressure : / mmHG Vent. Rate : 122 BPM Atrial Rate : 138 BPM P-R Int : 000 ms QRS Dur : 082 ms QT Int : 366 ms P-R-T Axes : 000 -02 060 degrees QTc Int : 521 ms ATRIAL FIBRILLATION WITH RAPID VENTRICULAR RESPONSE WITH PREMATURE VENTRICULAR OR ABERRANTLY CONDUCTED COMPLEXES NONSPECIFIC T WAVE ABNORMALITY ABNORMAL ECG Confirmed by BOBBY HANSEN MD ([id number]) on 09/10/2019 1:35:17 PM Referred By: Confirmed By:BOBBY HANSEN MD
--- NOTE | 2019-09-10 15:23 | CON.PULM ---
Consult Consult Specialty:: PULM/CCM Referred by:: Hospitalist Reason for Consultation:: COPD - History of Present Illness Chief Complaint: Elevated WBC History of Present Illness: 79 F, CVA with left hemiplelgia, AFib on rivaroxaban, CHF, HPL, dementia, COPD, anemia, hypothyroidism, HTN, DM, and GERD. Admitted via the ER from a SNF due to elevated WBC and tachycardia. She does report some dry cough and and occasional "wheeze". No travel history or sick contacts. No documented hemoptysis. 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: CVA, Dementia (mild) Cardio/Vascular: Yes: HTN Pulmonary: Yes: COPD Gastrointestinal: Yes: Other (Incisional hernia, s/p repair 10yrs ago) Musculoskeletal: Yes: Osteoarthritis - Past Surgical History Past Surgical History: Yes: Colectomy, Hernia Repair, Tubal Ligation - Alcohol/Substance Use Hx Alcohol Use: No History of Substance Use: reports: None - Smoking History Smoking history: Former smoker Have you smoked in the past 12 months: Yes Aproximately how many cigarettes per day: 3 If you are a former smoker, when did you quit?: 5 months ago - Social History ADL: Support Services History of Recent Travel: No Home Medications - Allergies Allergies/Adverse Reactions: Allergies Allergy/AdvReac Type Severity Reaction Status Date / Time No Known Allergies Allergy Verified 02/08/16 17:52 - Home Medications Home Medications: Ambulatory Orders Albuterol 0.083% Nebulizer Gail [Ventolin 0.083% Nebulizer Soln -] 1 neb NEB QID 02/08/16 Ammonium Lactate Lotion [Lac-Hydrin 12] 1 applic TP ASDIR 02/08/16 Diltiazem HCl [Diltiazem 24Hr ER (Cd)] 180 mg PO DAILY 02/08/16 Docusate Sodium [Colace -] 100 mg PO BID 02/08/16 Ferrous Sulfate 325 mg PO DAILY 02/08/16 Polyethylene Glycol 3350 [Gavilax] 17 gm PO DAILY 02/08/16 metFORMIN HCL [Metformin HCl] 500 mg PO DAILY 02/08/16 Acetaminophen [Tylenol] 650 mg PO Q6H PRN #0 02/11/16 Ferrous Sulfate [Feosol] 325 mg PO DAILY ud 02/11/16 Morphine *Sr* [Ms Contin -] 15 mg PO BID tablet.sa MDD 2 tabs 02/11/16 Ondansetron [Zuplenz] 4 mg PO BID PRN #0 02/11/16 Oxycodone HCl/Acetaminophen [Percocet 5-325 mg Tablet] 1 combo PO Q8H PRN #0 tablet MDD 3 tabs 02/11/16 Warfarin Na [Coumadin -] 2 mg PO DAILY@1800 tablet 02/11/16 levoFLOXacin [Levaquin -] 250 mg PO DAILY@0600 #5 tablet 02/11/16 Review of Systems - Review of Systems Constitutional: reports: Malaise. denies: Chills, Fever, Night Sweats Eyes: reports: No Symptoms HENT: reports: No Symptoms Neck: reports: No Symptoms Cardiovascular: denies: Chest Pain, Edema, Palpitations, Shortness of Breath Respiratory: reports: Cough, Wheezing. denies: Hemoptysis, Orthopnea, PND, Snoring, SOB, SOB on Exertion Gastrointestinal: reports: No Symptoms Genitourinary: reports: No Symptoms Breasts: reports: No Symptoms Reported Musculoskeletal: reports: No Symptoms Integumentary: reports: No Symptoms Neurological: reports: No Symptoms Endocrine: reports: No Symptoms Hematology/Lymphatic: reports: No Symptoms Psychiatric: reports: No Symptoms Physical Exam Vital Sings: Vital Signs Temperature 98.1 F 09/10/19 14:00 Pulse Rate 111 H 09/10/19 14:00 Respiratory Rate 09/10/19 07:51 Blood Pressure 150/76 09/10/19 14:00 O2 Sat by Pulse Oximetry (%) 94 L 09/09/19 21:25 Constitutional: Yes: No Distress, Calm Eyes: Yes: Conjunctiva Clear, EOM Intact HENT: Yes: Atraumatic, Normocephalic Neck: Yes: Supple, Trachea Midline Cardiovascular: Yes: Regular Rate and Rhythm Respiratory: Yes: Cough, Diminished, On Nasal O2, Rhonchi. No: Accessory Muscle Use, Rales, SOB, SOB on Exertion, Stridor, Tachypnea, Wheezes ...Inspection: Yes: WNL ...Clubbing: No Gastrointestinal: Yes: Normal Bowel Sounds, Soft Renal/: Yes: WNL Musculoskeletal: Yes: WNL Extremities: Yes: WNL Edema: No Peripheral Pulses WNL: Yes Integumentary: Yes: WNL Neurological: Yes: Pre-Existing Deficit Psychiatric: Yes: Alert, Oriented Labs: CBC, BMP 09/10/19 06:10 09/10/19 06:10 Imaging - Results Chest X-ray: Report Reviewed, Image Reviewed Problem List - Problems (1) COPD (chronic obstructive pulmonary disease) Code(s): J44.9 - CHRONIC OBSTRUCTIVE PULMONARY DISEASE, UNSPECIFIED (2) CHF (congestive heart failure) Code(s): I50.9 - HEART FAILURE, UNSPECIFIED (3) Dementia Code(s): F03.90 - UNSPECIFIED DEMENTIA WITHOUT BEHAVIORAL DISTURBANCE (4) Anemia Code(s): D64.9 - ANEMIA, UNSPECIFIED (5) Asthma Code(s): J45.909 - UNSPECIFIED ASTHMA, UNCOMPLICATED (6) Diabetes Code(s): E11.9 - TYPE 2 DIABETES MELLITUS WITHOUT COMPLICATIONS (7) HTN (hypertension) Code(s): I10 - ESSENTIAL (PRIMARY) HYPERTENSION (8) History of colon cancer Code(s): Z85.038 - PERSONAL HISTORY OF MALIGNANT NEOPLASM OF LARGE INTESTINE (9) Hypothyroid Code(s): E03.9 - HYPOTHYROIDISM, UNSPECIFIED (10) RBBB Code(s): I45.10 - UNSPECIFIED RIGHT BUNDLE-BRANCH BLOCK Assessment/Plan Noted Prednisone BD TX Standing and PRN Supplemental O2 as needed Rate control AC Will follow Thank you. Dr Esp[place] DOUGLAS Screen - DOUGLAS History Previously diagnosed with Sleep Apnea: No If Yes, currently using CPAP to treat your DOUGLAS: No - SNORING Do you snore loudly (enough to be heard thru closed doors)?: No - TIRED Do you often feel tired, fatigued, or sleepy during daytime?: Yes - OBSERVED Has anyone observed you stop breathing during your sleep?: No - BLOOD PRESSURE Do you have or are being treated for high blood pressure?: Yes - BMI Answer Y if weight exceeds amount listed for your height: No .: HEIGHT & WEIGHT (lbs): 4'10" 167lbs; 4'11" 175 lbs; 5'0" 179lbs;. 5 '1" 185lbs; 5'2" 191lbs; 5'3" 197lbs;. 5'4" 204lbs; 5'5" 210lbs; 5'6" 216lbs;. 5'7" 223lbs; 5'8" 230lbs; 5'9" 237lbs;. 5'10" 243lbs ; 5'11" 250lbs; 6' 258lbs;. 6'1" 265lbs; 6'2" 272lbs; 6'3" 279lbs ;. 6'4" 287lbs; 6'5" 295lbs - AGE Is your age over 50 yrs old?: Yes - NECK CIRCUMFERENCE Neck Circumference 40cm: No - GENDER Male: No - SCORE Total Score: 3 Score Interpretation: Intermediate Risk of DOUGLAS .: Interpretation: Score 0-2: Low Risk DOUGLAS. Score 3-4: Intermediate Risk DOUGLAS. Score 5-8: High Risk DOUGLAS
[2019-09-10] MEDS ORDERED: PT OWN MED DRAWER 7, Y5N ONE (17:02)
[2019-09-10] MEDS: RIVAROXABAN 20 MG TABLET PO SCH (17:11)
--- NOTE | 2019-09-10 17:41 | PN ---
Progress Note (short form) - Note Progress Note: ID CONSULT DICTATED AWAIT C/S CONTINUE VANCOMYCIN/ ZOSYN
[2019-09-10] MEDS ORDERED: DEXTROSE 5%-WATER - 50 ML IVPB ONE (17:55)
[2019-09-10] MEDS ORDERED: PIPERACILLIN/TAZOBACTAM 3.375 GM VIAL IVPB ONE (17:55)
[2019-09-10] MEDS: PIPERACILLIN/TAZOB 3.375 GM 3.375 GM in DEXTROSE 5%-WATER - 50 ML IVPB SCH (18:03)
[2019-09-10] MEDS: VANCOMYCIN 1 GRAM (PRE-DOCKED) 1,000 MG/250 ML BAG IVPB SCH (18:41)
[2019-09-11] MEDS ORDERED: PIPERACILLIN/TAZOBACTAM 3.375 GM VIAL IVPB ONE ×3 (00:56→17:28)
[2019-09-11] MEDS ORDERED: DEXTROSE 5%-WATER - 50 ML IVPB ONE ×3 (00:56→17:28)
[2019-09-11] MEDS: PIPERACILLIN/TAZOB 3.375 GM 3.375 GM in DEXTROSE 5%-WATER - 50 ML IVPB SCH ×3 (00:59→17:35)
[2019-09-11] MEDS: VANCOMYCIN 1 GRAM (PRE-DOCKED) 1,000 MG/250 ML BAG IVPB SCH ×2 (05:28→17:48)
[2019-09-11] MEDS: INSULIN SLIDING SCALE (NOVOLOG) 1 VIAL SQ SCH ×4 (05:59→21:15)
[2019-09-11] MEDS: LEVOTHYROXINE NA 25 MCG TABLET (FP) PO SCH (06:00)
[2019-09-11] MEDS: metFORMIN HCL 500 MG TABLET (FP) PO SCH (06:00)
[2019-09-11] MEDS: ALBUTEROL SO4 2.5/IPRATROPIUM 0.5 INH SOL 3 ML VIAL.NEB. NEB SCH ×4 (07:33→20:23)
--- NOTE | 2019-09-11 09:06 | PN ---
Progress Note, Physician Chief Complaint: No new complaints Tele Afib with some mild elevated HR's History of Present Illness: 79 year old female with a pmhx of CVA with hemiplelgia, afib on rivaroxaban, CHF , hld, dementia, copd, anemia, hypothyroidism, htn, dm, and gerd sent from [facility] with elevated WBC/+blood Cx's and tachycardia. Patient without complaints except she feels a little wheezy. No chest pain, palpitations, or edema. No pnd or orthopnea. EKG admission afib with VR 122bpm, nonspecific T wave abnormalities - Current Medication List Current Medications: Active Medications Acetaminophen (Tylenol -) 650 mg PO Q6H PRN PRN Reason: FEVER Albuterol/Ipratropium (Duoneb -) 1 amp NEB RQID [facility] Last Admin: 09/11/19 07:33 Dose: 1 amp Digoxin (Lanoxin -) 0.125 mg PO DAILY [facility] Last Admin: 09/10/19 10:24 Dose: 0.125 mg Diltiazem HCl (Cardizem Cd -) 240 mg PO DAILY [facility] Ferrous Sulfate (Feosol -) 325 mg PO DAILY [facility] Last Admin: 09/10/19 10:23 Dose: 325 mg Vancomycin HCl (Vancomycin (Pre-Docked)) 1,000 mg in 250 mls @ 166.667 mls/hr IVPB BID@0600,1800 [facility]; Protocol Last Admin: 09/11/19 05:28 Dose: 166.667 mls/hr Piperacillin Sod/Tazobactam (Sod 3.375 gm/ Dextrose) 50 mls @ 100 mls/hr IVPB Q8H-IV [facility]; Protocol Last Admin: 09/11/19 00:59 Dose: 100 mls/hr Insulin Aspart (Novolog Vial Sliding Scale -) 1 vial SQ ACHS [facility]; Protocol Last Admin: 09/11/19 05:59 Dose: 2 units Levothyroxine Sodium (Synthroid -) 25 mcg PO ACBK [facility] Last Admin: 09/11/19 06:00 Dose: 25 mcg Memantine (Namenda -) 5 mg PO DAILY [facility] Last Admin: 09/10/19 10:23 Dose: 5 mg Metformin HCl (Glucophage -) 500 mg PO ACBK [facility] Last Admin: 09/11/19 06:00 Dose: 500 mg Polyethylene Glycol (Miralax (For Daily Use) -) 17 gm PO DAILY [facility] Last Admin: 09/10/19 10:25 Dose: 17 grams Prednisone (Deltasone -) 60 mg PO DAILY [facility] Last Admin: 09/10/19 10:23 Dose: 60 mg Rivaroxaban (Xarelto) 20 mg PO DAILY@1800 [facility] Last Admin: 09/10/19 17:11 Dose: 20 mg - Objective Vital Signs: Vital Signs Temperature 98.3 F 09/11/19 06:00 Pulse Rate 93 H 09/11/19 06:00 Respiratory Rate 20 09/11/19 06:00 Blood Pressure 142/78 09/11/19 06:00 O2 Sat by Pulse Oximetry (%) 95 09/10/19 21:00 Constitutional: Yes: No Distress Neck: Yes: Supple Cardiovascular: Yes: Pulse Irregular, S1, S2. No: Regular Rate and Rhythm Respiratory: Yes: Wheezes Gastrointestinal: Yes: Soft Edema: No Labs: CBC, BMP 09/10/19 06:10 09/10/19 06:10 INR, PTT INR 1.34 (0.83-1.09) H 09/09/19 15:23 Problem List - Problems (1) CHF (congestive heart failure) Code(s): I50.9 - HEART FAILURE, UNSPECIFIED (2) Rapid atrial fibrillation Code(s): I48.91 - UNSPECIFIED ATRIAL FIBRILLATION (3) Sepsis Code(s): A41.9 - SEPSIS, UNSPECIFIED ORGANISM Assessment/Plan 79 year old female with a pmhx of CVA with hemiplelgia, afib on rivaroxaban, CHF , hld, dementia, copd, anemia, hypothyroidism, htn, dm, and gerd sent from [facility] with elevated WBC/+blood Cx's and tachycardia. Patient without complaints except she feels a little wheezy. No chest pain, palpitations, or edema. No pnd or orthopnea. EKG admission afib with VR 122bpm, nonspecific T wave abnormalities WBC 18 K 3.1 BNP 30k Trop 1 with normal CK TSH wnl Cr 1.1 1) Afib Rates reasonable yesterday but little up today. Will increase diltiazem to 240mg PO daily today Continue digoxin On rivaroxaban for AC 2) CHF -Some congestion with bnp elevated and Cr 1.1 Consider furosemide 40mg IV daily Monitor I/Os and lytes Keep K >4 and M >2 Elevated troponin with normal CK, no chest pain, and no acute ekg changes likely in setting of chf. Plan for routine echocardiogram on Thursday. 3) COPD Steroids as per primary team 4) ID Elevated WBC On antibiotics as per primary team. Etiology unclear. UA negative, CXR no infection. F/u primary team rec's
[2019-09-11] MEDS ORDERED: DIGOXIN 0.125 MG TABLET (FP) PO SCH (10:00)
[2019-09-11] MEDS: POLYETHYLENE GLYCOL 3350 119 GM BTL PO SCH (10:29)
[2019-09-11] MEDS: FERROUS SO4 325 MG TABLET (FP) PO SCH (10:29)
[2019-09-11] MEDS: predniSONE 20 MG TABLET (UD) PO SCH (10:29)
[2019-09-11] MEDS: MEMANTINE HCL 5 MG TABLET (UD) PO SCH (10:29)
[2019-09-11] MEDS: DIGOXIN 0.125 MG TABLET (FP) PO SCH (10:44)
--- NOTE | 2019-09-11 10:59 | PN ---
Progress Note, Physician Chief Complaint: AWAKE ALERT TODAY FEELING BETTER PATIENT REMOVED HER MIDLINE SHE APPEARED CONFUSED PER NURSE - Current Medication List Current Medications: Active Medications Acetaminophen (Tylenol -) 650 mg PO Q6H PRN PRN Reason: FEVER Albuterol/Ipratropium (Duoneb -) 1 amp NEB RQID [facility] Last Admin: 09/11/19 07:33 Dose: 1 amp Atorvastatin Calcium (Lipitor -) 20 mg PO HS [facility] Digoxin (Lanoxin -) 0.125 mg PO DAILY [facility] Last Admin: 09/11/19 10:44 Dose: 0.125 mg Diltiazem HCl (Cardizem Cd -) 240 mg PO DAILY [facility] Last Admin: 09/11/19 10:29 Dose: 240 mg Ferrous Sulfate (Feosol -) 325 mg PO DAILY [facility] Last Admin: 09/11/19 10:29 Dose: 325 mg Vancomycin HCl (Vancomycin (Pre-Docked)) 1,000 mg in 250 mls @ 166.667 mls/hr IVPB BID@0600,1800 [facility]; Protocol Last Admin: 09/11/19 05:28 Dose: 166.667 mls/hr Piperacillin Sod/Tazobactam (Sod 3.375 gm/ Dextrose) 50 mls @ 100 mls/hr IVPB Q8H-IV [facility]; Protocol Last Admin: 09/11/19 10:28 Dose: 100 mls/hr Insulin Aspart (Novolog Vial Sliding Scale -) 1 vial SQ ACHS [facility]; Protocol Last Admin: 09/11/19 05:59 Dose: 2 units Levothyroxine Sodium (Synthroid -) 25 mcg PO ACBK [facility] Last Admin: 09/11/19 06:00 Dose: 25 mcg Memantine (Namenda -) 5 mg PO DAILY [facility] Last Admin: 09/11/19 10:29 Dose: 5 mg Metformin HCl (Glucophage -) 500 mg PO ACBK [facility] Last Admin: 09/11/19 06:00 Dose: 500 mg Polyethylene Glycol (Miralax (For Daily Use) -) 17 gm PO DAILY [facility] Last Admin: 09/11/19 10:29 Dose: Not Given Prednisone (Deltasone -) 60 mg PO DAILY [facility] Last Admin: 09/11/19 10:29 Dose: 60 mg Rivaroxaban (Xarelto) 20 mg PO DAILY@1800 [facility] Last Admin: 09/10/19 17:11 Dose: 20 mg - Objective Vital Signs: Vital Signs Temperature 98 F 09/11/19 09:18 Pulse Rate 114 H 09/11/19 10:44 Respiratory Rate 18 09/11/19 09:18 Blood Pressure 125/65 09/11/19 09:18 O2 Sat by Pulse Oximetry (%) 95 09/10/19 21:00 Constitutional: Yes: Mild Distress Cardiovascular: Yes: Pulse Irregular Respiratory: Yes: Diminished, On Nasal O2, Rhonchi Gastrointestinal: Yes: Soft Genitourinary: Yes: Incontinence Musculoskeletal: Yes: Muscle Weakness Edema: Yes Edema: LLE: Trace, RLE: Trace Integumentary: Yes: Other Wound/Incision: Yes: Dressing Dry and Intact Neurological: Yes: Confusion, Pre-Existing Deficit ...Motor Strength: LLE, RLE Psychiatric: Yes: Other Labs: CBC, BMP 09/10/19 06:10 09/10/19 06:10 INR, PTT INR 1.34 (0.83-1.09) H 09/09/19 15:23 Problem List - Problems (1) CHF (congestive heart failure) Code(s): I50.9 - HEART FAILURE, UNSPECIFIED (2) Dementia Code(s): F03.90 - UNSPECIFIED DEMENTIA WITHOUT BEHAVIORAL DISTURBANCE (3) Rapid atrial fibrillation Code(s): I48.91 - UNSPECIFIED ATRIAL FIBRILLATION (4) Sepsis Code(s): A41.9 - SEPSIS, UNSPECIFIED ORGANISM (5) Anemia Code(s): D64.9 - ANEMIA, UNSPECIFIED (6) Asthma Code(s): J45.909 - UNSPECIFIED ASTHMA, UNCOMPLICATED (7) Diabetes Code(s): E11.9 - TYPE 2 DIABETES MELLITUS WITHOUT COMPLICATIONS (8) HTN (hypertension) Code(s): I10 - ESSENTIAL (PRIMARY) HYPERTENSION (9) History of colon cancer Code(s): Z85.038 - PERSONAL HISTORY OF MALIGNANT NEOPLASM OF LARGE INTESTINE (10) Hypothyroid Code(s): E03.9 - HYPOTHYROIDISM, UNSPECIFIED (11) RBBB Code(s): I45.10 - UNSPECIFIED RIGHT BUNDLE-BRANCH BLOCK Assessment/Plan RAPID AFIB ON CARDIZEM DRIP CHANGING TO PO CARDIZEM CD 180MG BUT HEN INCREASED TO 240MG PER CARDIOLOGY ADDING IV LASIX FOR PULM CONGESTIO CHECK CXR FOR CHF AND PATIENT REMOVED MIDLINE IV. REPLETE KCL, PATIENT REFUSED LABS THIS MORNING BUT NOW AGREED TO LABS WILL CHECK H/H AND ELECTROLYTES PT EVAL CARDIO EVAL APPRECIATED SEPSIS, WAS ON VANCO/ZOSYN FOR GRAM + COCCI IN BLOOD AT [facility] REPEAT CULTURES/ID CONSULT ON TELEMETRY CONTINUE
[2019-09-11] MEDS: FUROSEMIDE 40 MG/4 ML INJECTABLE VIAL IVPUSH SCH (11:41)
[2019-09-11 12:04] LABS: HEMATOCRIT 38.8 % (32.4-45.2); HEMOGLOBIN 12.1 GM/dL (10.7-15.3); MCH 27.6 pg (25.7-33.7); MCHC 31.3 g/dl (32.0-36.0); MEAN CELL VOLUME 88.2 fl (80-96); MEAN PLT VOLUME 8.5 fl (7.5-11.1); PLATELET COUNT 379 K/MM3 (134-434); RBC 4.39 M/mm3 (3.60-5.2); RDW 16.2 % (11.6-15.6); WHITE BLOOD COUNT 21.1 K/mm3 (4.0-10.0)
[2019-09-11 12:31] LABS: BLOOD UREA NITROGEN 24.9 mg/dL (7-18); CALCIUM 8.4 mg/dL (8.5-10.1); CREATININE 1.3 mg/dL (0.55-1.3); MAGNESIUM 1.6 mg/dL (1.8-2.4)
[2019-09-11 12:35] LABS: POTASSIUM 2.7 mmol/L (3.5-5.1)
[2019-09-11] MEDS ORDERED: POTASSIUM CHLORIDE TABS 10 MEQ TABLET.ER (FP) PO ONE (12:44)
[2019-09-11] MEDS ORDERED: MAGNESIUM SULF 50% (8.12 MEQ/2 ML-1 GM VIAL) IVPB ONE (12:45)
[2019-09-11] MEDS: KCL 10 MEQ IVPB 10 MEQ/100 ML INFUS.BAG IVPB SCH ×2 (13:24→15:24)
[2019-09-11] MEDS: ACETAMINOPHEN 325 MG TABLET (FP) PO PRN (13:39)
--- NOTE | 2019-09-11 14:47 | CONS ---
DATE OF CONSULTATION: DATE OF DICTATION: 09/10/2019 The patient is a 79-year-old female evaluated for possible sepsis. History was obtained from the chart, as she cannot give a history secondary to her dementia. [facility] a [facility]. According to the [facility] notes, she had recently been started on a course of vancomycin and Zosyn for sepsis. Additional details are not available at this time. She is now transferred to the hospital on September 09, 2019, with tachycardia. She was found to be in rapid atrial fibrillation. The patient was evaluated. Cultures were obtained. Her hospital course has been complicated by elevated white blood cell count 17.7. The patient suffers from dementia. She cannot offer any additional details. No additional details are available about her recent diagnosis of infection and culture results. Past medical history positive for dementia, stroke, atrial fibrillation, congestive heart failure, hyperlipidemia, COPD, hypothyroidism, hypertension, diabetes mellitus, gastroesophageal reflux. No known allergies. Medications at the present time include Tylenol, albuterol, aspirin, Cardizem, Lasix, Synthroid, Namenda, Glucophage, Xarelto. SOCIAL HISTORY: She presumably is presently residing in a half-way facility. She is a former smoker. SYSTEMS REVIEW: Neurologic: Positive for dementia and stroke. Cardiac: Negative chest pain or palpitations. Respiratory: Negative cough or sputum production. Gastrointestinal: Negative vomiting or diarrhea. Genitourinary: As per HPI. LABORATORY DATA: White count 17.7, hematocrit 38.4, platelets 409, creatinine 1.1. Urinalysis: 205 white cells. Blood and urine cultures are pending. Chest x-ray negative for acute infiltrate. PHYSICAL EXAMINATION: General: She is awake, alert, supine in bed, in no acute distress, not acutely toxic appearing. Breathing is non-labored. Vital Signs: Temperature 98.1. Blood pressure 130/74. Pulse 108, regular. Respirations 18 per minute. Eyes: Sclerae anicteric. Heart Sounds: S1, S2. Lungs: Clear. Abdomen: Soft, nontender. Extremities: Negative for edema. IMPRESSION: 1. Rapid atrial fibrillation. 2. Urinary tract infection, rule out sepsis secondary to urinary tract infection. 3. History of sepsis at the [facility]. Await cultures. Continue empiric vancomycin and Zosyn. Obtain [facility] records. Further recommendations pending cultures. Thank you for the kind referral. BOBBY BRAVO M.D. [id number]
--- NOTE | 2019-09-11 14:48 | PN ---
Progress Note (short form) - Note Progress Note: Resting in NAD. No CP or SOB. Apparently pulled out midline catheter. Intake & Output 09/08/19 09/09/19 09/10/19 09/11/19 23:59 23:59 23:59 23:59 Intake Total 525 910 800 Balance 525 910 800 Weight 134 lb 133 lb 9.6 oz Last Vital Signs Temp Pulse Resp BP Pulse Ox 98 F 114 H 18 125/65 95 09/11/19 09:18 09/11/19 10:44 09/11/19 09:18 09/11/19 09:18 09/11/19 09:00 Active Medications Acetaminophen (Tylenol -) 650 mg PO Q6H PRN PRN Reason: FEVER Last Admin: 09/11/19 13:39 Dose: 650 mg Albuterol/Ipratropium (Duoneb -) 1 amp NEB RQID [facility] Last Admin: 09/11/19 11:46 Dose: 1 amp Atorvastatin Calcium (Lipitor -) 20 mg PO HS [facility] Digoxin (Lanoxin -) 0.125 mg PO DAILY [facility] Last Admin: 09/11/19 10:44 Dose: 0.125 mg Diltiazem HCl (Cardizem Cd -) 240 mg PO DAILY [facility] Last Admin: 09/11/19 10:29 Dose: 240 mg Ferrous Sulfate (Feosol -) 325 mg PO DAILY [facility] Last Admin: 09/11/19 10:29 Dose: 325 mg Furosemide (Lasix Injection -) 40 mg IVPUSH DAILY [facility] Last Admin: 09/11/19 11:41 Dose: 40 mg Vancomycin HCl (Vancomycin (Pre-Docked)) 1,000 mg in 250 mls @ 166.667 mls/hr IVPB BID@0600,1800 [facility]; Protocol Last Admin: 09/11/19 05:28 Dose: 166.667 mls/hr Piperacillin Sod/Tazobactam (Sod 3.375 gm/ Dextrose) 50 mls @ 100 mls/hr IVPB Q8H-IV [facility]; Protocol Last Admin: 09/11/19 10:28 Dose: 100 mls/hr Insulin Aspart (Novolog Vial Sliding Scale -) 1 vial SQ ACHS [facility]; Protocol Last Admin: 09/11/19 11:29 Dose: Not Given Levothyroxine Sodium (Synthroid -) 25 mcg PO ACBK [facility] Last Admin: 09/11/19 06:00 Dose: 25 mcg Memantine (Namenda -) 5 mg PO DAILY [facility] Last Admin: 09/11/19 10:29 Dose: 5 mg Metformin HCl (Glucophage -) 500 mg PO ACBK [facility] Last Admin: 09/11/19 06:00 Dose: 500 mg Prednisone (Deltasone -) 60 mg PO DAILY [facility] Last Admin: 09/11/19 10:29 Dose: 60 mg Rivaroxaban (Xarelto) 20 mg PO DAILY@1800 [facility] Last Admin: 09/10/19 17:11 Dose: 20 mg Constitutional: Yes: No Distress Eyes: Yes: Conjunctiva Clear, EOM Intact HENT: Yes: Atraumatic, Normocephalic Neck: Yes: Supple, Trachea Midline Cardiovascular: Yes: Regular Rate and Rhythm Respiratory: Yes: Cough, Diminished, On Nasal O2, Rhonchi. No: Accessory Muscle Use, Rales, SOB, SOB on Exertion, Stridor, Tachypnea, Wheezes ...Inspection: Yes: WNL ...Clubbing: No Gastrointestinal: Yes: Normal Bowel Sounds, Soft Renal/: Yes: WNL Musculoskeletal: Yes: WNL Extremities: Yes: WNL Edema: No Peripheral Pulses WNL: Yes Integumentary: Yes: WNL Neurological: Yes: Pre-Existing Deficit Psychiatric: Yes: Alert, Oriented Labs: Laboratory Results - last 24 hr 09/10/19 09/10/19 09/11/19 17:07 22:06 05:42 WBC RBC Hgb Hct MCV MCH MCHC RDW Plt Count MPV Sodium Potassium Chloride Carbon Dioxide Anion Gap BUN Creatinine Est GFR (CKD-EPI)AfAm Est GFR (CKD-EPI)NonAf POC Glucometer 244 250 168 Random Glucose Calcium Magnesium 09/11/19 09/11/19 09/11/19 10:37 10:37 11:27 WBC 21.1 H RBC 4.39 Hgb 12.1 Hct 38.8 MCV 88.2 MCH 27.6 MCHC 31.3 L RDW 16.2 H Plt Count 379 MPV 8.5 Sodium 140 Potassium 2.7 L* Chloride 96 L Carbon Dioxide 34 H Anion Gap 9 BUN 24.9 H Creatinine 1.3 Est GFR (CKD-EPI)AfAm 45.50 Est GFR (CKD-EPI)NonAf 39.26 POC Glucometer 120 Random Glucose 113 H Calcium 8.4 L Magnesium 1.6 L Imaging - Results Chest X-ray: Report Reviewed, Image Reviewed Problem List - Problems (1) COPD (chronic obstructive pulmonary disease) Code(s): J44.9 - CHRONIC OBSTRUCTIVE PULMONARY DISEASE, UNSPECIFIED (2) CHF (congestive heart failure) Code(s): I50.9 - HEART FAILURE, UNSPECIFIED (3) Dementia Code(s): F03.90 - UNSPECIFIED DEMENTIA WITHOUT BEHAVIORAL DISTURBANCE (4) Anemia Code(s): D64.9 - ANEMIA, UNSPECIFIED (5) Asthma Code(s): J45.909 - UNSPECIFIED ASTHMA, UNCOMPLICATED (6) Diabetes Code(s): E11.9 - TYPE 2 DIABETES MELLITUS WITHOUT COMPLICATIONS (7) HTN (hypertension) Code(s): I10 - ESSENTIAL (PRIMARY) HYPERTENSION (8) History of colon cancer Code(s): Z85.038 - PERSONAL HISTORY OF MALIGNANT NEOPLASM OF LARGE INTESTINE (9) Hypothyroid Code(s): E03.9 - HYPOTHYROIDISM, UNSPECIFIED (10) RBBB Code(s): I45.10 - UNSPECIFIED RIGHT BUNDLE-BRANCH BLOCK Assessment/Plan Prednisone BD TX Standing and PRN Supplemental O2 as needed Rate control AC Dr [place] Problem List - Problems (1) COPD (chronic obstructive pulmonary disease) Code(s): J44.9 - CHRONIC OBSTRUCTIVE PULMONARY DISEASE, UNSPECIFIED (2) CHF (congestive heart failure) Code(s): I50.9 - HEART FAILURE, UNSPECIFIED (3) Dementia Code(s): F03.90 - UNSPECIFIED DEMENTIA WITHOUT BEHAVIORAL DISTURBANCE (4) Anemia Code(s): D64.9 - ANEMIA, UNSPECIFIED (5) Asthma Code(s): J45.909 - UNSPECIFIED ASTHMA, UNCOMPLICATED (6) Diabetes Code(s): E11.9 - TYPE 2 DIABETES MELLITUS WITHOUT COMPLICATIONS (7) HTN (hypertension) Code(s): I10 - ESSENTIAL (PRIMARY) HYPERTENSION (8) History of colon cancer Code(s): Z85.038 - PERSONAL HISTORY OF MALIGNANT NEOPLASM OF LARGE INTESTINE (9) Hypothyroid Code(s): E03.9 - HYPOTHYROIDISM, UNSPECIFIED (10) RBBB Code(s): I45.10 - UNSPECIFIED RIGHT BUNDLE-BRANCH BLOCK
[2019-09-11] MEDS: RIVAROXABAN 20 MG TABLET PO SCH (17:37)
[2019-09-11] MEDS: ATORVASTATIN CA 20 MG TABLET (FP) PO SCH (21:12)
[2019-09-12] MEDS ORDERED: PIPERACILLIN/TAZOBACTAM 3.375 GM VIAL IVPB ONE ×3 (01:17→17:41)
[2019-09-12] MEDS ORDERED: DEXTROSE 5%-WATER - 50 ML IVPB ONE ×3 (01:18→17:41)
[2019-09-12] MEDS: PIPERACILLIN/TAZOB 3.375 GM 3.375 GM in DEXTROSE 5%-WATER - 50 ML IVPB SCH ×4 (01:44→18:55)
[2019-09-12] MEDS ORDERED: ACETAMINOPHEN 325 MG TABLET (FP) PO ONE (05:09)
[2019-09-12] MEDS: VANCOMYCIN 1 GRAM (PRE-DOCKED) 1,000 MG/250 ML BAG IVPB SCH ×3 (05:32→18:55)
[2019-09-12] MEDS: LEVOTHYROXINE NA 25 MCG TABLET (FP) PO SCH (06:15)
[2019-09-12] MEDS: INSULIN SLIDING SCALE (NOVOLOG) 1 VIAL SQ SCH ×4 (06:15→21:54)
[2019-09-12] MEDS: metFORMIN HCL 500 MG TABLET (FP) PO SCH (06:15)
[2019-09-12 06:56] LABS: HEMOGLOBIN 12.1 GM/dL (10.7-15.3); MCH 27.5 pg (25.7-33.7); MCHC 31.8 g/dl (32.0-36.0); MEAN CELL VOLUME 86.6 fl (80-96); MEAN PLT VOLUME 8.5 fl (7.5-11.1); PLATELET COUNT 358 K/MM3 (134-434); RBC 4.39 M/mm3 (3.60-5.2); RDW 16.3 % (11.6-15.6); WHITE BLOOD COUNT 19.1 K/mm3 (4.0-10.0)
[2019-09-12 07:20] LABS: ALBUMIN 2.7 g/dl (3.4-5.0); BILIRUBIN,TOTAL 0.7 mg/dL (0.2-1); BLOOD UREA NITROGEN 22.1 mg/dL (7-18); CALCIUM 8.1 mg/dL (8.5-10.1); CREATININE 1.3 mg/dL (0.55-1.3); MAGNESIUM 1.5 mg/dL (1.8-2.4); POTASSIUM 3.7 mmol/L (3.5-5.1); TOT PROT 5.9 g/dl (6.4-8.2)
--- NOTE | 2019-09-12 08:41 | PN ---
Progress Note, Physician Chief Complaint: AWAKE ALERT ECHO DONE TODAY TO ASSES CARDIAC FUNCTION DENIES CHEST PAIN DOES HAVE SOME SOB - Current Medication List Current Medications: Active Medications Acetaminophen (Tylenol -) 650 mg PO Q6H PRN PRN Reason: FEVER Last Admin: 09/11/19 13:39 Dose: 650 mg Albuterol/Ipratropium (Duoneb -) 1 amp NEB RQID [facility] Last Admin: 09/11/19 20:23 Dose: Not Given Amino Acids (Prosource No Carb Liquid Pkt) 30 ml PO BID@0800,1730 [facility] Atorvastatin Calcium (Lipitor -) 20 mg PO HS [facility] Last Admin: 09/11/19 21:12 Dose: 20 mg Digoxin (Lanoxin -) 0.125 mg PO DAILY [facility] Last Admin: 09/11/19 10:44 Dose: 0.125 mg Diltiazem HCl (Cardizem Cd -) 240 mg PO DAILY [facility] Last Admin: 09/11/19 10:29 Dose: 240 mg Ferrous Sulfate (Feosol -) 325 mg PO DAILY [facility] Last Admin: 09/11/19 10:29 Dose: 325 mg Furosemide (Lasix Injection -) 40 mg IVPUSH DAILY [facility] Last Admin: 09/11/19 11:41 Dose: 40 mg Vancomycin HCl (Vancomycin (Pre-Docked)) 1,000 mg in 250 mls @ 166.667 mls/hr IVPB BID@0600,1800 [facility]; Protocol Last Admin: 09/12/19 05:32 Dose: 166.667 mls/hr Piperacillin Sod/Tazobactam (Sod 3.375 gm/ Dextrose) 50 mls @ 100 mls/hr IVPB Q8H-IV [facility]; Protocol Last Admin: 09/12/19 01:44 Dose: 100 mls/hr Insulin Aspart (Novolog Vial Sliding Scale -) 1 vial SQ ACHS [facility]; Protocol Last Admin: 09/12/19 06:15 Dose: 2 units Levothyroxine Sodium (Synthroid -) 25 mcg PO ACBK [facility] Last Admin: 09/12/19 06:15 Dose: 25 mcg Magnesium Sulfate (Magnesium Sulfate) 2 gm IVPB ONCE ONE Stop: 09/12/19 08:16 Memantine (Namenda -) 5 mg PO DAILY [facility] Last Admin: 09/11/19 10:29 Dose: 5 mg Metformin HCl (Glucophage -) 500 mg PO ACBK [facility] Last Admin: 09/12/19 06:15 Dose: 500 mg Potassium Chloride (K-Dur -) 10 meq PO ONCE ONE Stop: 09/12/19 08:17 Prednisone (Deltasone -) 60 mg PO DAILY [facility] Last Admin: 09/11/19 10:29 Dose: 60 mg Rivaroxaban (Xarelto) 20 mg PO DAILY@1800 [facility] Last Admin: 09/11/19 17:37 Dose: 20 mg - Objective Vital Signs: Vital Signs Temperature 97.7 F 09/12/19 05:43 Pulse Rate 110 H 09/12/19 05:43 Respiratory Rate 20 09/12/19 05:43 Blood Pressure 157/82 09/12/19 05:43 O2 Sat by Pulse Oximetry (%) 96 09/11/19 20:51 Constitutional: Yes: Mild Distress Cardiovascular: Yes: Tachycardia, Pulse Irregular Respiratory: Yes: Diminished, On Nasal O2 Gastrointestinal: Yes: Abdomen, Obese, Distention Genitourinary: Yes: Incontinence Musculoskeletal: Yes: Muscle Weakness Edema: Yes Edema: LLE: Trace, RLE: Trace Peripheral Pulses WNL: Yes Neurological: Yes: Pre-Existing Deficit, Seizure ...Motor Strength: LLE, RLE Psychiatric: Yes: Other Labs: CBC, BMP 09/12/19 05:35 09/12/19 05:35 INR, PTT INR 1.34 (0.83-1.09) H 09/09/19 15:23 Problem List - Problems (1) CHF (congestive heart failure) Code(s): I50.9 - HEART FAILURE, UNSPECIFIED (2) Dementia Code(s): F03.90 - UNSPECIFIED DEMENTIA WITHOUT BEHAVIORAL DISTURBANCE (3) Rapid atrial fibrillation Code(s): I48.91 - UNSPECIFIED ATRIAL FIBRILLATION (4) Sepsis Code(s): A41.9 - SEPSIS, UNSPECIFIED ORGANISM (5) Anemia Code(s): D64.9 - ANEMIA, UNSPECIFIED (6) Asthma Code(s): J45.909 - UNSPECIFIED ASTHMA, UNCOMPLICATED (7) Diabetes Code(s): E11.9 - TYPE 2 DIABETES MELLITUS WITHOUT COMPLICATIONS (8) HTN (hypertension) Code(s): I10 - ESSENTIAL (PRIMARY) HYPERTENSION (9) History of colon cancer Code(s): Z85.038 - PERSONAL HISTORY OF MALIGNANT NEOPLASM OF LARGE INTESTINE (10) Hypothyroid Code(s): E03.9 - HYPOTHYROIDISM, UNSPECIFIED (11) RBBB Code(s): I45.10 - UNSPECIFIED RIGHT BUNDLE-BRANCH BLOCK Assessment/Plan AFIB RATE CONTROLLED CHANGING TO PO CARDIZEM CD 180MG BUT HEN INCREASED TO 240MG PER CARDIOLOGY ADDING IV LASIX FOR PULM CONGESTIO CHECK CXR FOR CHF AND PATIENT REMOVED MIDLINE IV. REPLETE KCL, PATIENT REFUSED LABS THIS MORNING BUT NOW AGREED TO LABS WILL CHECK H/H AND ELECTROLYTES PT EVAL CARDIO EVAL APPRECIATED SEPSIS, WAS ON VANCO/ZOSYN FOR GRAM + COCCI IN BLOOD AT [facility] REPEAT CULTURES/ID CONSULT ON TELEMETRY CONTINUE CXR NO ACUTE CHANGES ECHO NORMAL EF%
[2019-09-12] MEDS ORDERED: POTASSIUM CHLORIDE TABS 10 MEQ TABLET.ER (FP) PO ONE (08:45)
[2019-09-12] MEDS ORDERED: MAGNESIUM SULF 50% (8.12 MEQ/2 ML-1 GM VIAL) IVPB ONE (08:45)
[2019-09-12] MEDS: ALBUTEROL SO4 2.5/IPRATROPIUM 0.5 INH SOL 3 ML VIAL.NEB. NEB SCH ×4 (08:45→20:36)
--- NOTE | 2019-09-12 09:46 | ECHO ---
Name: FRANCHESKA SHEEHAN Exam:Adult Echocardiogram Study Date: 09/12/2019 08:31 AM Age: 79 yrs Height: 59 in Weight: 180 lb BSA: 1.8 m2 MMode/2D Measurements & Calculations IVSd: 1.3 cm Ao root diam: 3.0 cm LVIDd: 4.1 cm LA dimension: 3.4 cm LVIDs: 3.3 cm ACS: 1.7 cm LVPWd: 1.6 cm EDV(Teich): 73.4 ml LVOT diam: 2.0 cm ESV(Teich): 45.7 ml RV S Adi: 12.4 cm/sec Doppler Measurements & Calculations MV E max adi: 79.0 cm/sec Ao V2 max: 167.7 cm/sec MV A max adi: 129.6 cm/sec Ao max P.2 mmHg MV E/A: 0.61 Ao V2 mean: 87.4 cm/sec MV dec time: 0.24 sec Ao mean P.8 mmHg Ao V2 VTI: 25.2 cm MUMTAZ(I,D): 1.8 cm2 MUMTAZ(V,D): 1.8 cm2 LV V1 max P.9 mmHg MR max adi: 238.9 cm/sec LV V1 mean P.7 mmHg MR max P.8 mmHg LV V1 max: 98.7 cm/sec LV V1 mean: 59.2 cm/sec LV V1 VTI: 14.6 cm SV(LVOT): 45.3 ml TR max adi: 173.1 cm/sec TR max P.0 mmHg PA V2 max: 93.2 cm/sec Med Peak E' Adi: 5.3 cm/sec PA max P.5 mmHg Med E/e': 14.8 Procedure Study Quality: Technically suboptimal. Left Ventricle The left ventricle is normal in size. There is mild concentric left ventricular hypertrophy. The left ventricular ejection fraction is normal. Ejection Fraction = 55-60%. The transmitral spectral Doppler flow pattern is suggestive of impaired LV relaxation. Right Ventricle The right ventricle is grossly normal size. The right ventricular systolic function is normal. Atria Normal left and right atrial size and function. Mitral Valve The mitral valve is grossly normal. There is no mitral regurgitation noted. Tricuspid Valve The tricuspid valve is not well visualized. There is Trace to mild tricuspid regurgitation. Right joni tricular systolic pressure is normal. Aortic Valve The aortic valve is not well visualized. No hemodynamically significant valvular aortic stenosis. No aortic regurgitation is present. Pulmonic Valve The pulmonic valve is not well visualized. Great Vessels The aortic root is not well visualized. Pericardium/Pleura There is no pericardial effusion. Fat pad. Interpretation Summary LV: Normal size,mild LVH.normal systolic function,EF 55-60%,impaired relaxation RV: Grossly normal Mild TR with normal pulmonary systolic pressure. Alex Mcdaniel 09/12/2019 09:46 AM
[2019-09-12] MEDS: predniSONE 20 MG TABLET (UD) PO SCH (10:56)
[2019-09-12] MEDS: FUROSEMIDE 40 MG/4 ML INJECTABLE VIAL IVPUSH SCH (10:56)
[2019-09-12] MEDS: MEMANTINE HCL 5 MG TABLET (UD) PO SCH (10:57)
[2019-09-12] MEDS: FERROUS SO4 325 MG TABLET (FP) PO SCH (10:57)
[2019-09-12] MEDS: DIGOXIN 0.125 MG TABLET (FP) PO SCH (10:57)
--- NOTE | 2019-09-12 13:30 | PN ---
Progress Note (short form) - Note Progress Note: Resting in NAD. No CP or SOB. Intake & Output 09/09/19 09/10/19 09/11/19 09/12/19 23:59 23:59 23:59 23:59 Intake Total 171 267 1209 780 Balance 737 805 0158 780 Weight 134 lb 133 lb 9.6 oz 133 lb 6.4 oz Last Vital Signs Temp Pulse Resp BP Pulse Ox 98 F 92 H 20 116/80 96 09/12/19 10:00 09/12/19 10:57 09/12/19 10:00 09/12/19 10:00 09/12/19 09:00 Active Medications Acetaminophen (Tylenol -) 650 mg PO Q6H PRN PRN Reason: FEVER Last Admin: 09/11/19 13:39 Dose: 650 mg Albuterol/Ipratropium (Duoneb -) 1 amp NEB RQID [facility] Last Admin: 09/12/19 08:45 Dose: 1 amp Amino Acids (Prosource No Carb Liquid Pkt) 30 ml PO BID@0800,1730 [facility] Atorvastatin Calcium (Lipitor -) 20 mg PO HS [facility] Last Admin: 09/11/19 21:12 Dose: 20 mg Digoxin (Lanoxin -) 0.125 mg PO DAILY [facility] Last Admin: 09/12/19 10:57 Dose: 0.125 mg Diltiazem HCl (Cardizem Cd -) 240 mg PO DAILY [facility] Last Admin: 09/12/19 10:57 Dose: 240 mg Ferrous Sulfate (Feosol -) 325 mg PO DAILY [facility] Last Admin: 09/12/19 10:57 Dose: 325 mg Furosemide (Lasix Injection -) 40 mg IVPUSH DAILY [facility] Last Admin: 09/12/19 10:56 Dose: 40 mg Vancomycin HCl (Vancomycin (Pre-Docked)) 1,000 mg in 250 mls @ 166.667 mls/hr IVPB BID@0600,1800 [facility]; Protocol Last Admin: 09/12/19 05:32 Dose: 166.667 mls/hr Piperacillin Sod/Tazobactam (Sod 3.375 gm/ Dextrose) 50 mls @ 100 mls/hr IVPB Q8H-IV [facility]; Protocol Last Admin: 09/12/19 10:54 Dose: 100 mls/hr Insulin Aspart (Novolog Vial Sliding Scale -) 1 vial SQ ACHS [facility]; Protocol Last Admin: 09/12/19 11:35 Dose: 2 units Levothyroxine Sodium (Synthroid -) 25 mcg PO BK [facility] Last Admin: 09/12/19 06:15 Dose: 25 mcg Memantine (Namenda -) 5 mg PO DAILY [facility] Last Admin: 09/12/19 10:57 Dose: 5 mg Metformin HCl (Glucophage -) 500 mg PO ACBK [facility] Last Admin: 09/12/19 06:15 Dose: 500 mg Prednisone (Deltasone -) 60 mg PO DAILY [facility] Last Admin: 09/12/19 10:56 Dose: 60 mg Rivaroxaban (Xarelto) 20 mg PO DAILY@1800 [facility] Last Admin: 09/11/19 17:37 Dose: 20 mg Constitutional: Yes: No Distress Eyes: Yes: Conjunctiva Clear, EOM Intact HENT: Yes: Atraumatic, Normocephalic Neck: Yes: Supple, Trachea Midline Cardiovascular: Yes: Regular Rate and Rhythm Respiratory: Yes: Cough, Diminished, On Nasal O2, Rhonchi. No: Accessory Muscle Use, Rales, SOB, SOB on Exertion, Stridor, Tachypnea, Wheezes ...Inspection: Yes: WNL ...Clubbing: No Gastrointestinal: Yes: Normal Bowel Sounds, Soft Renal/: Yes: WNL Musculoskeletal: Yes: WNL Extremities: Yes: WNL Edema: No Peripheral Pulses WNL: Yes Integumentary: Yes: WNL Neurological: Yes: Pre-Existing Deficit Psychiatric: Yes: Alert, Oriented Labs: Laboratory Results - last 24 hr 09/09/19 09/11/19 09/11/19 11:11 17:13 21:14 WBC RBC Hgb Hct MCV MCH MCHC RDW Plt Count MPV Sodium Potassium Chloride Carbon Dioxide Anion Gap BUN Creatinine Est GFR (CKD-EPI)AfAm Est GFR (CKD-EPI)NonAf POC Glucometer 324 370 Random Glucose Calcium Magnesium Total Bilirubin AST ALT Alkaline Phosphatase Total Protein Albumin Procalcitonin 0.27 H 09/12/19 09/12/19 09/12/19 05:34 05:35 05:35 WBC 19.1 H RBC 4.39 Hgb 12.1 Hct 38.0 MCV 86.6 MCH 27.5 MCHC 31.8 L RDW 16.3 H Plt Count 358 MPV 8.5 Sodium 137 Potassium 3.7 Chloride 93 L Carbon Dioxide 35 H Anion Gap 10 BUN 22.1 H Creatinine 1.3 Est GFR (CKD-EPI)AfAm 45.50 Est GFR (CKD-EPI)NonAf 39.26 POC Glucometer 184 Random Glucose 179 H Calcium 8.1 L Magnesium 1.5 L Total Bilirubin 0.7 AST 16 ALT 39 Alkaline Phosphatase 94 Total Protein 5.9 L Albumin 2.7 L Procalcitonin 09/12/19 11:33 WBC RBC Hgb Hct MCV MCH MCHC RDW Plt Count MPV Sodium Potassium Chloride Carbon Dioxide Anion Gap BUN Creatinine Est GFR (CKD-EPI)AfAm Est GFR (CKD-EPI)NonAf POC Glucometer 152 Random Glucose Calcium Magnesium Total Bilirubin AST ALT Alkaline Phosphatase Total Protein Albumin Procalcitonin Imaging - Results Chest X-ray: Report Reviewed, Image Reviewed Problem List - Problems (1) COPD (chronic obstructive pulmonary disease) Code(s): J44.9 - CHRONIC OBSTRUCTIVE PULMONARY DISEASE, UNSPECIFIED (2) CHF (congestive heart failure) Code(s): I50.9 - HEART FAILURE, UNSPECIFIED (3) Dementia Code(s): F03.90 - UNSPECIFIED DEMENTIA WITHOUT BEHAVIORAL DISTURBANCE (4) Anemia Code(s): D64.9 - ANEMIA, UNSPECIFIED (5) Asthma Code(s): J45.909 - UNSPECIFIED ASTHMA, UNCOMPLICATED (6) Diabetes Code(s): E11.9 - TYPE 2 DIABETES MELLITUS WITHOUT COMPLICATIONS (7) HTN (hypertension) Code(s): I10 - ESSENTIAL (PRIMARY) HYPERTENSION (8) History of colon cancer Code(s): Z85.038 - PERSONAL HISTORY OF MALIGNANT NEOPLASM OF LARGE INTESTINE (9) Hypothyroid Code(s): E03.9 - HYPOTHYROIDISM, UNSPECIFIED (10) RBBB Code(s): I45.10 - UNSPECIFIED RIGHT BUNDLE-BRANCH BLOCK Assessment/Plan Prednisone BD TX Standing and PRN Supplemental O2 as needed Rate control AC Dr [place] Problem List - Problems (1) COPD (chronic obstructive pulmonary disease) Code(s): J44.9 - CHRONIC OBSTRUCTIVE PULMONARY DISEASE, UNSPECIFIED (2) CHF (congestive heart failure) Code(s): I50.9 - HEART FAILURE, UNSPECIFIED (3) Dementia Code(s): F03.90 - UNSPECIFIED DEMENTIA WITHOUT BEHAVIORAL DISTURBANCE (4) Anemia Code(s): D64.9 - ANEMIA, UNSPECIFIED (5) Asthma Code(s): J45.909 - UNSPECIFIED ASTHMA, UNCOMPLICATED (6) Diabetes Code(s): E11.9 - TYPE 2 DIABETES MELLITUS WITHOUT COMPLICATIONS (7) HTN (hypertension) Code(s): I10 - ESSENTIAL (PRIMARY) HYPERTENSION (8) History of colon cancer Code(s): Z85.038 - PERSONAL HISTORY OF MALIGNANT NEOPLASM OF LARGE INTESTINE (9) Hypothyroid Code(s): E03.9 - HYPOTHYROIDISM, UNSPECIFIED (10) RBBB Code(s): I45.10 - UNSPECIFIED RIGHT BUNDLE-BRANCH BLOCK
--- NOTE | 2019-09-12 14:03 | PN ---
Progress Note, Physician Chief Complaint: The patient appears comfortable at the time of exam. he reports no chest pain, shortness of breath, palpitation or dizziness. Telemetry reviewed, it showed sinus rhythm with frequent APCs and occasional VPCs. NSVTs, up to 8 beats noted. History of Present Illness: 79 year old woman with a PMHx of HTN, DM, HLD, afib on rivaroxaban, CHF, CVA with hemiplelgia, dementia, COPD, anemia, hypothyroidism, and gerd sent from [facility] with elevated WBC/+blood Cx's and tachycardia. Patient without complaints except she feels a little wheezy. No chest pain, palpitations, or edema. EKG admission afib with VR 122bpm, nonspecific T wave abnormalities WBC 18 K 3.1 BNP 30k Trop 1 with normal CK TSH wnl Cr 1.1 CXR 09/11/19 cardiomegaly. Echo 09/12/19: Mild concentric LVH with normal wall motion and systolic function. LVEF = 55-60%. Normal RV. Normal LA and RA in size. No significant valvular abnormalities. - Current Medication List Current Medications: Active Medications Acetaminophen (Tylenol -) 650 mg PO Q6H PRN PRN Reason: FEVER Last Admin: 09/11/19 13:39 Dose: 650 mg Albuterol/Ipratropium (Duoneb -) 1 amp NEB RQID [facility] Last Admin: 09/12/19 08:45 Dose: 1 amp Amino Acids (Prosource No Carb Liquid Pkt) 30 ml PO BID@0800,1730 [facility] Atorvastatin Calcium (Lipitor -) 20 mg PO HS [facility] Last Admin: 09/11/19 21:12 Dose: 20 mg Digoxin (Lanoxin -) 0.125 mg PO DAILY [facility] Last Admin: 09/12/19 10:57 Dose: 0.125 mg Diltiazem HCl (Cardizem Cd -) 240 mg PO DAILY [facility] Last Admin: 09/12/19 10:57 Dose: 240 mg Ferrous Sulfate (Feosol -) 325 mg PO DAILY [facility] Last Admin: 09/12/19 10:57 Dose: 325 mg Furosemide (Lasix Injection -) 40 mg IVPUSH DAILY [facility] Last Admin: 09/12/19 10:56 Dose: 40 mg Vancomycin HCl (Vancomycin (Pre-Docked)) 1,000 mg in 250 mls @ 166.667 mls/hr IVPB BID@0600,1800 [facility]; Protocol Last Admin: 09/12/19 05:32 Dose: 166.667 mls/hr Piperacillin Sod/Tazobactam (Sod 3.375 gm/ Dextrose) 50 mls @ 100 mls/hr IVPB Q8H-IV [facility]; Protocol Last Admin: 09/12/19 10:54 Dose: 100 mls/hr Insulin Aspart (Novolog Vial Sliding Scale -) 1 vial SQ [facility]; Protocol Last Admin: 09/12/19 11:35 Dose: 2 units Levothyroxine Sodium (Synthroid -) 25 mcg PO BK [facility] Last Admin: 09/12/19 06:15 Dose: 25 mcg Memantine (Namenda -) 5 mg PO DAILY [facility] Last Admin: 09/12/19 10:57 Dose: 5 mg Metformin HCl (Glucophage -) 500 mg PO BK [facility] Last Admin: 09/12/19 06:15 Dose: 500 mg Prednisone (Deltasone -) 60 mg PO DAILY [facility] Last Admin: 09/12/19 10:56 Dose: 60 mg Rivaroxaban (Xarelto) 20 mg PO DAILY@1800 [facility] Last Admin: 09/11/19 17:37 Dose: 20 mg - Objective Vital Signs: Vital Signs Temperature 98 F 09/12/19 10:00 Pulse Rate 92 H 09/12/19 10:57 Respiratory Rate 20 09/12/19 10:00 Blood Pressure 116/80 09/12/19 10:00 O2 Sat by Pulse Oximetry (%) 96 09/12/19 09:00 General: Well developed. Well nourished. No acute distress. Head: Normocephalic. Atraumatic, Eyes: PERRLA, EOMI. Sclerae anicteric. Conjunctivae clear. Neck: Supple. No JVD. No bruits. Heart: Normal S1, S2: Regularly irregular rhythm and tachycardia. Lungs: Symmetrical air entry. Expiratory crackles. No rales or rhonchi. Abdomen: Soft. Bowel sound positive. Non tender. No masses. Extremities: No edema. No clubbing or cyanosis. PD 2+, equal bilaterally. Labs: CBC, BMP 09/12/19 05:35 09/12/19 05:35 INR, PTT INR 1.34 (0.83-1.09) H 09/09/19 15:23 Assessment/Plan 79 year old female with a pmhx of CVA with hemiplelgia, afib on rivaroxaban, CHF , hld, dementia, copd, anemia, hypothyroidism, htn, dm, and gerd sent from [facility] with elevated WBC/+blood Cx's and tachycardia. Patient without complaints except she feels a little wheezy. No chest pain, palpitations, or edema. No pnd or orthopnea. EKG admission afib with VR 122bpm, nonspecific T wave abnormalities WBC 18 K 3.1 BNP 30k Trop 1 with normal CK TSH wnl Cr 1.1 1) Paroxysmal atrial fibrillation. Currently in sinus rhythm with mild sinus tachycardia. Frequent APCs and VPCs. Add metoprolol 25 mg BID Continue diltiazem to 240mg PO daily. May discontinue digoxin Continue rivaroxaban 20 mg daily for recurrent stroke prevention. 2) NSVT: likely due to hypokalemia. Monitor electrolytes daily. keep K>4, Mg >2 Add Metoprolol tartrate 25 mg BID as above. 2) CHF -Some congestion with bnp elevated and Cr 1.1 Continue furosemide 40mg IV daily Monitor I/Os and lytes Keep K >4 and M >2 Elevated troponin with normal CK, no chest pain, and no acute ekg changes likely in setting of chf. Plan for routine echocardiogram on Thursday. 3) COPD Steroids as per primary team 4) ID Elevated WBC On antibiotics as per primary team. Etiology unclear. UA negative, CXR no infection. F/u primary team rec's
[2019-09-12] MEDS: RIVAROXABAN 20 MG TABLET PO SCH (17:45)
[2019-09-12] MEDS: AMINO ACIDS/PROTEIN HYDROLYS 30 ML LIQUID.PKT PO SCH (17:45)
[2019-09-12] MEDS: ATORVASTATIN CA 20 MG TABLET (FP) PO SCH (21:45)
[2019-09-13] MEDS: INSULIN SLIDING SCALE (NOVOLOG) 1 VIAL SQ SCH ×4 (06:30→21:52)
[2019-09-13] MEDS: LEVOTHYROXINE NA 25 MCG TABLET (FP) PO SCH (06:30)
[2019-09-13] MEDS: metFORMIN HCL 500 MG TABLET (FP) PO SCH (06:30)
[2019-09-13] MEDS: ACETAMINOPHEN 325 MG TABLET (FP) PO PRN (06:32)
[2019-09-13] MEDS: ALBUTEROL SO4 2.5/IPRATROPIUM 0.5 INH SOL 3 ML VIAL.NEB. NEB SCH ×4 (07:43→21:30)
[2019-09-13 08:05] LABS: HEMATOCRIT 38.8 % (32.4-45.2); HEMOGLOBIN 12.4 GM/dL (10.7-15.3); MCH 27.7 pg (25.7-33.7); MCHC 31.9 g/dl (32.0-36.0); MEAN CELL VOLUME 86.6 fl (80-96); MEAN PLT VOLUME 8.7 fl (7.5-11.1); PLATELET COUNT 393 K/MM3 (134-434); RBC 4.48 M/mm3 (3.60-5.2); RDW 16.7 % (11.6-15.6); WHITE BLOOD COUNT 21.3 K/mm3 (4.0-10.0)
[2019-09-13 08:27] LABS: BLOOD UREA NITROGEN 30.7 mg/dL (7-18); CALCIUM 8.4 mg/dL (8.5-10.1); CREATININE 1.3 mg/dL (0.55-1.3); MAGNESIUM 1.9 mg/dL (1.8-2.4); POTASSIUM 3.5 mmol/L (3.5-5.1)
--- NOTE | 2019-09-13 08:46 | PN ---
Progress Note, Physician Chief Complaint: AWAKE MORE ALERT DENIES ANY DISTRESS NO FEVER OR CHILLS APPETITE IMPROVED - Current Medication List Current Medications: Active Medications Acetaminophen (Tylenol -) 650 mg PO Q6H PRN PRN Reason: FEVER Last Admin: 09/13/19 06:32 Dose: 650 mg Albuterol/Ipratropium (Duoneb -) 1 amp NEB RQID [facility] Last Admin: 09/12/19 20:36 Dose: Not Given Amino Acids (Prosource No Carb Liquid Pkt) 30 ml PO BID@0800,1730 [facility] Last Admin: 09/12/19 17:45 Dose: 30 ml Atorvastatin Calcium (Lipitor -) 20 mg PO HS [facility] Last Admin: 09/12/19 21:45 Dose: 20 mg Digoxin (Lanoxin -) 0.125 mg PO DAILY [facility] Last Admin: 09/12/19 10:57 Dose: 0.125 mg Diltiazem HCl (Cardizem Cd -) 240 mg PO DAILY [facility] Last Admin: 09/12/19 10:57 Dose: 240 mg Ferrous Sulfate (Feosol -) 325 mg PO DAILY [facility] Last Admin: 09/12/19 10:57 Dose: 325 mg Furosemide (Lasix Injection -) 40 mg IVPUSH DAILY [facility] Last Admin: 09/12/19 10:56 Dose: 40 mg Vancomycin HCl (Vancomycin (Pre-Docked)) 1,000 mg in 250 mls @ 166.667 mls/hr IVPB BID@0600,1800 [facility]; Protocol Last Admin: 09/12/19 18:55 Dose: Not Given Piperacillin Sod/Tazobactam (Sod 3.375 gm/ Dextrose) 50 mls @ 100 mls/hr IVPB Q8H-IV [facility]; Protocol Last Admin: 09/12/19 18:55 Dose: Not Given Insulin Aspart (Novolog Vial Sliding Scale -) 1 vial SQ ACHS [facility]; Protocol Last Admin: 09/13/19 06:30 Dose: 2 units Levothyroxine Sodium (Synthroid -) 25 mcg PO ACBK [facility] Last Admin: 09/13/19 06:30 Dose: 25 mcg Memantine (Namenda -) 5 mg PO DAILY [facility] Last Admin: 09/12/19 10:57 Dose: 5 mg Metformin HCl (Glucophage -) 500 mg PO ACBK [facility] Last Admin: 09/13/19 06:30 Dose: 500 mg Prednisone (Deltasone -) 60 mg PO DAILY [facility] Last Admin: 09/12/19 10:56 Dose: 60 mg Rivaroxaban (Xarelto) 20 mg PO DAILY@1800 [facility] Last Admin: 09/12/19 17:45 Dose: 20 mg - Objective Vital Signs: Vital Signs Temperature 97.5 F L 09/13/19 08:13 Pulse Rate 103 H 09/13/19 08:13 Respiratory Rate 20 09/13/19 08:13 Blood Pressure 116/75 09/13/19 08:13 O2 Sat by Pulse Oximetry (%) 98 09/13/19 08:13 Constitutional: Yes: Mild Distress Cardiovascular: Yes: Regular Rate and Rhythm Respiratory: Yes: Diminished Gastrointestinal: Yes: Soft, Abdomen, Obese Genitourinary: Yes: Incontinence Musculoskeletal: Yes: Muscle Weakness Edema: No Neurological: Yes: Pre-Existing Deficit Labs: CBC, BMP 09/13/19 05:45 09/13/19 05:45 INR, PTT INR 1.34 (0.83-1.09) H 09/09/19 15:23 Problem List - Problems (1) CHF (congestive heart failure) Code(s): I50.9 - HEART FAILURE, UNSPECIFIED (2) Dementia Code(s): F03.90 - UNSPECIFIED DEMENTIA WITHOUT BEHAVIORAL DISTURBANCE (3) Rapid atrial fibrillation Code(s): I48.91 - UNSPECIFIED ATRIAL FIBRILLATION (4) Sepsis Code(s): A41.9 - SEPSIS, UNSPECIFIED ORGANISM (5) Anemia Code(s): D64.9 - ANEMIA, UNSPECIFIED (6) Asthma Code(s): J45.909 - UNSPECIFIED ASTHMA, UNCOMPLICATED (7) Diabetes Code(s): E11.9 - TYPE 2 DIABETES MELLITUS WITHOUT COMPLICATIONS (8) HTN (hypertension) Code(s): I10 - ESSENTIAL (PRIMARY) HYPERTENSION (9) History of colon cancer Code(s): Z85.038 - PERSONAL HISTORY OF MALIGNANT NEOPLASM OF LARGE INTESTINE (10) Hypothyroid Code(s): E03.9 - HYPOTHYROIDISM, UNSPECIFIED (11) RBBB Code(s): I45.10 - UNSPECIFIED RIGHT BUNDLE-BRANCH BLOCK Assessment/Plan AFIB RATE CONTROLLED CHANGING TO PO CARDIZEM CD 180MG BUT HEN INCREASED TO 240MG PER CARDIOLOGY ADDING IV LASIX FOR PULM CONGESTION CHECK CXR FOR CHF AND PATIENT REMOVED MIDLINE IV. REPLETE KCL, PATIENT REFUSED LABS THIS MORNING BUT NOW AGREED TO LABS WILL CHECK H/H AND ELECTROLYTES PT EVAL CARDIO EVAL APPRECIATED SEPSIS, WAS ON VANCO/ZOSYN FOR GRAM + COCCI IN BLOOD AT [facility] REPEAT CULTURES/ID CONSULT ON TELEMETRY CONTINUE CXR NO ACUTE CHANGES ECHO NORMAL EF% HOLD VANCO TROUGH 32 CONTINUE ZOSYN ID FOLLOW UP
[2019-09-13] MEDS ORDERED: PIPERACILLIN/TAZOBACTAM 3.375 GM VIAL IVPB ONE ×3 (09:14→21:39)
[2019-09-13] MEDS ORDERED: DEXTROSE 5%-WATER - 50 ML IVPB ONE ×3 (09:14→21:39)
[2019-09-13] MEDS: MEMANTINE HCL 5 MG TABLET (UD) PO SCH (10:01)
[2019-09-13] MEDS: FERROUS SO4 325 MG TABLET (FP) PO SCH (10:01)
[2019-09-13] MEDS: DIGOXIN 0.125 MG TABLET (FP) PO SCH (10:01)
[2019-09-13] MEDS: AMINO ACIDS/PROTEIN HYDROLYS 30 ML LIQUID.PKT PO SCH ×2 (10:02→16:56)
[2019-09-13] MEDS: predniSONE 20 MG TABLET (UD) PO SCH (10:02)
--- NOTE | 2019-09-13 10:34 | PN ---
Progress Note, Physician History of Present Illness: PULMONARY ALERT,COMFORTABLE,-RESP DISTRESS - Current Medication List Current Medications: Active Medications Acetaminophen (Tylenol -) 650 mg PO Q6H PRN PRN Reason: FEVER Last Admin: 09/13/19 06:32 Dose: 650 mg Albuterol/Ipratropium (Duoneb -) 1 amp NEB RQID [facility] Last Admin: 09/12/19 20:36 Dose: Not Given Amino Acids (Prosource No Carb Liquid Pkt) 30 ml PO BID@0800,1730 [facility] Last Admin: 09/13/19 10:02 Dose: 30 ml Atorvastatin Calcium (Lipitor -) 20 mg PO HS [facility] Last Admin: 09/12/19 21:45 Dose: 20 mg Digoxin (Lanoxin -) 0.125 mg PO DAILY [facility] Last Admin: 09/13/19 10:01 Dose: 0.125 mg Diltiazem HCl (Cardizem Cd -) 240 mg PO DAILY [facility] Last Admin: 09/13/19 10:01 Dose: 240 mg Ferrous Sulfate (Feosol -) 325 mg PO DAILY [facility] Last Admin: 09/13/19 10:01 Dose: 325 mg Furosemide (Lasix Injection -) 40 mg IVPUSH DAILY [facility] Last Admin: 09/12/19 10:56 Dose: 40 mg Vancomycin HCl (Vancomycin (Pre-Docked)) 1,000 mg in 250 mls @ 166.667 mls/hr IVPB BID@0600,1800 [facility]; Protocol Last Admin: 09/12/19 18:55 Dose: Not Given Piperacillin Sod/Tazobactam (Sod 3.375 gm/ Dextrose) 50 mls @ 100 mls/hr IVPB Q8H-IV [facility]; Protocol Last Admin: 09/12/19 18:55 Dose: Not Given Insulin Aspart (Novolog Vial Sliding Scale -) 1 vial SQ ACHS [facility]; Protocol Last Admin: 09/13/19 06:30 Dose: 2 units Levothyroxine Sodium (Synthroid -) 25 mcg PO ACBK [facility] Last Admin: 09/13/19 06:30 Dose: 25 mcg Memantine (Namenda -) 5 mg PO DAILY [facility] Last Admin: 09/13/19 10:01 Dose: 5 mg Metformin HCl (Glucophage -) 500 mg PO ACBK [facility] Last Admin: 09/13/19 06:30 Dose: 500 mg Prednisone (Deltasone -) 60 mg PO DAILY [facility] Last Admin: 09/13/19 10:02 Dose: 60 mg Rivaroxaban (Xarelto) 20 mg PO DAILY@1800 [facility] Last Admin: 09/12/19 17:45 Dose: 20 mg - Objective Vital Signs: Vital Signs Temperature 97.5 F L 09/13/19 08:13 Pulse Rate 114 H 09/13/19 10:01 Respiratory Rate 20 09/13/19 08:13 Blood Pressure 116/75 09/13/19 08:13 O2 Sat by Pulse Oximetry (%) 98 09/13/19 08:13 Constitutional: Yes: Well Nourished, Calm Eyes: Yes: WNL HENT: Yes: WNL Neck: Yes: WNL Cardiovascular: Yes: Pulse Irregular, S1, S2 Respiratory: Yes: Diminished Gastrointestinal: Yes: Normal Bowel Sounds, Soft Extremities: Yes: WNL Edema: No Labs: CBC, BMP 09/13/19 05:45 09/13/19 05:45 INR, PTT INR 1.34 (0.83-1.09) H 09/09/19 15:23 Assessment/Plan Problem List - Problems (1) COPD (chronic obstructive pulmonary disease) Code(s): J44.9 - CHRONIC OBSTRUCTIVE PULMONARY DISEASE, UNSPECIFIED (2) CHF (congestive heart failure) Code(s): I50.9 - HEART FAILURE, UNSPECIFIED (3) Dementia Code(s): F03.90 - UNSPECIFIED DEMENTIA WITHOUT BEHAVIORAL DISTURBANCE (4) Anemia Code(s): D64.9 - ANEMIA, UNSPECIFIED (5) Asthma Code(s): J45.909 - UNSPECIFIED ASTHMA, UNCOMPLICATED (6) Diabetes Code(s): E11.9 - TYPE 2 DIABETES MELLITUS WITHOUT COMPLICATIONS (7) HTN (hypertension) Code(s): I10 - ESSENTIAL (PRIMARY) HYPERTENSION (8) History of colon cancer Code(s): Z85.038 - PERSONAL HISTORY OF MALIGNANT NEOPLASM OF LARGE INTESTINE (9) Hypothyroid Code(s): E03.9 - HYPOTHYROIDISM, UNSPECIFIED (10) RBBB Code(s): I45.10 - UNSPECIFIED RIGHT BUNDLE-BRANCH BLOCK Assessment/Plan Prednisone BD TX Standing and PRN Supplemental O2 as needed Rate control AC DR TINSLEY Problem List - Problems (1) COPD (chronic obstructive pulmonary disease) Code(s): J44.9 - CHRONIC OBSTRUCTIVE PULMONARY DISEASE, UNSPECIFIED (2) CHF (congestive heart failure) Code(s): I50.9 - HEART FAILURE, UNSPECIFIED (3) Dementia Code(s): F03.90 - UNSPECIFIED DEMENTIA WITHOUT BEHAVIORAL DISTURBANCE (4) Anemia Code(s): D64.9 - ANEMIA, UNSPECIFIED (5) Asthma Code(s): J45.909 - UNSPECIFIED ASTHMA, UNCOMPLICATED (6) Diabetes Code(s): E11.9 - TYPE 2 DIABETES MELLITUS WITHOUT COMPLICATIONS (7) HTN (hypertension) Code(s): I10 - ESSENTIAL (PRIMARY) HYPERTENSION (8) History of colon cancer Code(s): Z85.038 - PERSONAL HISTORY OF MALIGNANT NEOPLASM OF LARGE INTESTINE (9) Hypothyroid Code(s): E03.9 - HYPOTHYROIDISM, UNSPECIFIED (10) RBBB Code(s): I45.10 - UNSPECIFIED RIGHT BUNDLE-BRANCH BLOCK
[2019-09-13] MEDS: PIPERACILLIN/TAZOB 3.375 GM 3.375 GM in DEXTROSE 5%-WATER - 50 ML IVPB SCH ×3 (11:02→17:03)
[2019-09-13] MEDS: FUROSEMIDE 40 MG/4 ML INJECTABLE VIAL IVPUSH SCH (11:03)
--- NOTE | 2019-09-13 11:10 | PN ---
Progress Note, Physician History of Present Illness: pt seen and examined today in nad. states she is feeling better. no new complaints. - Current Medication List Current Medications: Active Medications Acetaminophen (Tylenol -) 650 mg PO Q6H PRN PRN Reason: FEVER Last Admin: 09/13/19 06:32 Dose: 650 mg Albuterol/Ipratropium (Duoneb -) 1 amp NEB RQID [facility] Last Admin: 09/12/19 20:36 Dose: Not Given Amino Acids (Prosource No Carb Liquid Pkt) 30 ml PO BID@0800,1730 [facility] Last Admin: 09/13/19 10:02 Dose: 30 ml Atorvastatin Calcium (Lipitor -) 20 mg PO HS [facility] Last Admin: 09/12/19 21:45 Dose: 20 mg Digoxin (Lanoxin -) 0.125 mg PO DAILY [facility] Last Admin: 09/13/19 10:01 Dose: 0.125 mg Diltiazem HCl (Cardizem Cd -) 240 mg PO DAILY [facility] Last Admin: 09/13/19 10:01 Dose: 240 mg Ferrous Sulfate (Feosol -) 325 mg PO DAILY [facility] Last Admin: 09/13/19 10:01 Dose: 325 mg Furosemide (Lasix Injection -) 40 mg IVPUSH DAILY [facility] Last Admin: 09/13/19 11:03 Dose: 40 mg Vancomycin HCl (Vancomycin (Pre-Docked)) 1,000 mg in 250 mls @ 166.667 mls/hr IVPB BID@0600,1800 [facility]; Protocol Last Admin: 09/12/19 18:55 Dose: Not Given Piperacillin Sod/Tazobactam (Sod 3.375 gm/ Dextrose) 50 mls @ 100 mls/hr IVPB Q8H-IV [facility]; Protocol Last Admin: 09/13/19 11:02 Dose: 100 mls/hr Insulin Aspart (Novolog Vial Sliding Scale -) 1 vial SQ ACHS [facility]; Protocol Last Admin: 09/13/19 11:07 Dose: Not Given Levothyroxine Sodium (Synthroid -) 25 mcg PO ACBK [facility] Last Admin: 09/13/19 06:30 Dose: 25 mcg Memantine (Namenda -) 5 mg PO DAILY [facility] Last Admin: 09/13/19 10:01 Dose: 5 mg Metformin HCl (Glucophage -) 500 mg PO ACBK [facility] Last Admin: 09/13/19 06:30 Dose: 500 mg Prednisone (Deltasone -) 60 mg PO DAILY [facility] Last Admin: 09/13/19 10:02 Dose: 60 mg Rivaroxaban (Xarelto) 20 mg PO DAILY@1800 [facility] Last Admin: 09/12/19 17:45 Dose: 20 mg - Objective Vital Signs: Vital Signs Temperature 97.5 F L 09/13/19 08:13 Pulse Rate 114 H 09/13/19 10:01 Respiratory Rate 20 09/13/19 08:13 Blood Pressure 116/75 09/13/19 08:13 O2 Sat by Pulse Oximetry (%) 98 09/13/19 08:13 Constitutional: Yes: No Distress, Calm Eyes: Yes: Conjunctiva Clear, EOM Intact HENT: Yes: Atraumatic, Normocephalic Neck: Yes: Supple, Trachea Midline Cardiovascular: Yes: Regular Rate and Rhythm, S1, S2. No: Bradycardia, Tachycardia, Pulse Irregular, Bruit, JVD, Gallop, Murmur, Rub, S3, S4, Varicosities Respiratory: Yes: Regular, CTA Bilaterally. No: Rales, Rhonchi, SOB, Wheezes Gastrointestinal: Yes: Normal Bowel Sounds. No: Soft, Distention, Tenderness Musculoskeletal: Yes: WNL Extremities: Yes: WNL Edema: No Peripheral Pulses WNL: Yes Neurological: Yes: Alert, Oriented Psychiatric: Yes: Alert, Oriented Labs: CBC, BMP 09/13/19 05:45 09/13/19 05:45 INR, PTT INR 1.34 (0.83-1.09) H 09/09/19 15:23 - ....Imaging Chest X-ray: Report Reviewed, Image Reviewed EKG: Report Reviewed, Image Reviewed Other: Report Reviewed, Image Reviewed (tele-pafib, pvcs, nsvt) Assessment/Plan 79 year old female with a pmhx of CVA with hemiplelgia, afib on rivaroxaban, CHF , hld, dementia, copd, anemia, hypothyroidism, htn, dm, and gerd sent from [facility] with elevated WBC/+blood Cx's and tachycardia. Patient without complaints except she feels a little wheezy. No chest pain, palpitations, or edema. No pnd or orthopnea. EKG admission afib with VR 122bpm, nonspecific T wave abnormalities WBC 18 K 3.1 BNP 30k Trop 1 with normal CK TSH wnl Cr 1.1 1) Paroxysmal atrial fibrillation. Currently in sinus rhythm with mild sinus tachycardia. Frequent APCs and VPCs. start metoprolol 25 mg BID Continue diltiazem 240mg PO daily. can stop digoxin Continue rivaroxaban 20 mg daily for recurrent stroke prevention. 2) NSVT: likely due to hypokalemia. Monitor electrolytes daily. keep K>4, Mg >2 replete today Add Metoprolol tartrate 25 mg BID as above. 2) CHF -Some congestion with bnp elevated and Cr 1.1 Continue furosemide 40mg IV daily Monitor I/Os and lytes Keep K >4 and M >2 Elevated troponin with normal CK, no chest pain, and no acute ekg changes likely in setting of chf. echo showed normal lvef, mild valvular abnl 3) COPD Steroids as per primary team 4) ID Elevated WBC On antibiotics as per primary team.
[2019-09-13] MEDS: VANCOMYCIN 1 GRAM (PRE-DOCKED) 1,000 MG/250 ML BAG IVPB SCH ×2 (15:46→17:03)
[2019-09-13] MEDS ORDERED: INSULIN (NOVOLOG) ASPART 100 UNITS/ML 10ML VIAL ONE (16:12)
[2019-09-13] MEDS: RIVAROXABAN 20 MG TABLET PO SCH ×2 (17:00→17:02)
[2019-09-13] MEDS: ATORVASTATIN CA 20 MG TABLET (FP) PO SCH (21:50)
[2019-09-14] MEDS: PIPERACILLIN/TAZOB 3.375 GM 3.375 GM in DEXTROSE 5%-WATER - 50 ML IVPB SCH ×3 (03:17→17:36)
[2019-09-14] MEDS ORDERED: PIPERACILLIN/TAZOBACTAM 3.375 GM VIAL IVPB ONE ×3 (04:12→17:00)
[2019-09-14] MEDS ORDERED: DEXTROSE 5%-WATER - 50 ML IVPB ONE ×3 (04:12→17:00)
[2019-09-14] MEDS: metFORMIN HCL 500 MG TABLET (FP) PO SCH (06:08)
[2019-09-14] MEDS: INSULIN SLIDING SCALE (NOVOLOG) 1 VIAL SQ SCH ×4 (06:08→23:41)
[2019-09-14] MEDS: LEVOTHYROXINE NA 25 MCG TABLET (FP) PO SCH (06:08)
[2019-09-14] MEDS: VANCOMYCIN 1 GRAM (PRE-DOCKED) 1,000 MG/250 ML BAG IVPB SCH ×2 (06:08→17:37)
[2019-09-14] MEDS: ALBUTEROL SO4 2.5/IPRATROPIUM 0.5 INH SOL 3 ML VIAL.NEB. NEB SCH ×3 (07:55→16:50)
--- NOTE | 2019-09-14 08:59 | PN ---
Progress Note, Physician Chief Complaint: AWAKE MORE ALERT DENIES ANY DISTRESS NO FEVER OR CHILLS APPETITE IMPROVED - Current Medication List Current Medications: Active Medications Acetaminophen (Tylenol -) 650 mg PO Q6H PRN PRN Reason: FEVER Last Admin: 09/13/19 06:32 Dose: 650 mg Albuterol/Ipratropium (Duoneb -) 1 amp NEB RQID [facility] Last Admin: 09/13/19 21:30 Dose: 1 amp Amino Acids (Prosource No Carb Liquid Pkt) 30 ml PO BID@0800,1730 [facility] Last Admin: 09/13/19 16:56 Dose: 30 ml Atorvastatin Calcium (Lipitor -) 20 mg PO HS [facility] Last Admin: 09/13/19 21:50 Dose: 20 mg Digoxin (Lanoxin -) 0.125 mg PO DAILY [facility] Last Admin: 09/13/19 10:01 Dose: 0.125 mg Diltiazem HCl (Cardizem Cd -) 240 mg PO DAILY [facility] Last Admin: 09/13/19 10:01 Dose: 240 mg Ferrous Sulfate (Feosol -) 325 mg PO DAILY [facility] Last Admin: 09/13/19 10:01 Dose: 325 mg Furosemide (Lasix Injection -) 40 mg IVPUSH DAILY [facility] Last Admin: 09/13/19 11:03 Dose: 40 mg Vancomycin HCl (Vancomycin (Pre-Docked)) 1,000 mg in 250 mls @ 166.667 mls/hr IVPB BID@0600,1800 [facility]; Protocol Last Admin: 09/14/19 06:08 Dose: Not Given Piperacillin Sod/Tazobactam (Sod 3.375 gm/ Dextrose) 50 mls @ 100 mls/hr IVPB Q8H-IV [facility]; Protocol Last Admin: 09/14/19 03:17 Dose: 100 mls/hr Insulin Aspart (Novolog Vial Sliding Scale -) 1 vial SQ ACHS [facility]; Protocol Last Admin: 09/14/19 06:08 Dose: Not Given Levothyroxine Sodium (Synthroid -) 25 mcg PO ACBK [facility] Last Admin: 09/14/19 06:08 Dose: 25 mcg Memantine (Namenda -) 5 mg PO DAILY [facility] Last Admin: 09/13/19 10:01 Dose: 5 mg Metformin HCl (Glucophage -) 500 mg PO ACBK [facility] Last Admin: 09/14/19 06:08 Dose: 500 mg Prednisone (Deltasone -) 60 mg PO DAILY [facility] Last Admin: 09/13/19 10:02 Dose: 60 mg Rivaroxaban (Xarelto) 20 mg PO DAILY@1800 [facility] Last Admin: 09/13/19 17:02 Dose: 20 mg - Objective Vital Signs: Vital Signs Temperature 97.8 F 09/14/19 06:06 Pulse Rate 98 H 09/14/19 06:06 Respiratory Rate 20 09/14/19 06:06 Blood Pressure 138/55 L 09/14/19 06:06 O2 Sat by Pulse Oximetry (%) 95 09/13/19 21:00 Constitutional: Yes: Mild Distress Cardiovascular: Yes: Pulse Irregular Respiratory: Yes: Diminished, On Nasal O2 Gastrointestinal: Yes: Soft Genitourinary: Yes: Incontinence Musculoskeletal: Yes: Muscle Weakness Edema: LLE: Trace, RLE: Trace Integumentary: Yes: WNL Wound/Incision: Yes: Open to air Neurological: Yes: Confusion, Pre-Existing Deficit ...Motor Strength: LLE, RLE Psychiatric: Yes: Other Labs: CBC, BMP 09/13/19 05:45 09/13/19 05:45 INR, PTT INR 1.34 (0.83-1.09) H 09/09/19 15:23 Problem List - Problems (1) CHF (congestive heart failure) Code(s): I50.9 - HEART FAILURE, UNSPECIFIED (2) Dementia Code(s): F03.90 - UNSPECIFIED DEMENTIA WITHOUT BEHAVIORAL DISTURBANCE (3) Rapid atrial fibrillation Code(s): I48.91 - UNSPECIFIED ATRIAL FIBRILLATION (4) Sepsis Code(s): A41.9 - SEPSIS, UNSPECIFIED ORGANISM (5) Anemia Code(s): D64.9 - ANEMIA, UNSPECIFIED (6) Asthma Code(s): J45.909 - UNSPECIFIED ASTHMA, UNCOMPLICATED (7) Diabetes Code(s): E11.9 - TYPE 2 DIABETES MELLITUS WITHOUT COMPLICATIONS (8) HTN (hypertension) Code(s): I10 - ESSENTIAL (PRIMARY) HYPERTENSION (9) History of colon cancer Code(s): Z85.038 - PERSONAL HISTORY OF MALIGNANT NEOPLASM OF LARGE INTESTINE (10) Hypothyroid Code(s): E03.9 - HYPOTHYROIDISM, UNSPECIFIED (11) RBBB Code(s): I45.10 - UNSPECIFIED RIGHT BUNDLE-BRANCH BLOCK Assessment/Plan LEUKOCYTOSIS PERSISTS ON IV ABX FOR GRAM + COCCI IN [facility] AT [facility] STARTED ON ZOSYN AND VANCO WITH PICC LINE ZOSYN STARTED 08/25 -09/06 VANCO 09/01-09/06 ADMITTED Aug HERE AT [facility] BLOOD CULTURES NEGATIVE WILL D/W DR BRAVO
[2019-09-14] MEDS ORDERED: METOPROLOL TARTRATE 25 MG TABLET (FP) PO SCH (10:00)
[2019-09-14] MEDS: FUROSEMIDE 40 MG/4 ML INJECTABLE VIAL IVPUSH SCH (10:17)
[2019-09-14] MEDS: AMINO ACIDS/PROTEIN HYDROLYS 30 ML LIQUID.PKT PO SCH ×2 (10:17→17:36)
[2019-09-14] MEDS: MEMANTINE HCL 5 MG TABLET (UD) PO SCH (10:17)
[2019-09-14] MEDS: FERROUS SO4 325 MG TABLET (FP) PO SCH (10:18)
[2019-09-14] MEDS: DIGOXIN 0.125 MG TABLET (FP) PO SCH (10:18)
[2019-09-14] MEDS: predniSONE 20 MG TABLET (UD) PO SCH (10:18)
--- NOTE | 2019-09-14 10:48 | PN ---
Progress Note, Physician History of Present Illness: pulmonary alert,feeling better,comfortable,-sob at rest - Current Medication List Current Medications: Active Medications Acetaminophen (Tylenol -) 650 mg PO Q6H PRN PRN Reason: FEVER Last Admin: 09/13/19 06:32 Dose: 650 mg Albuterol/Ipratropium (Duoneb -) 1 amp NEB RQID [facility] Last Admin: 09/13/19 21:30 Dose: 1 amp Amino Acids (Prosource No Carb Liquid Pkt) 30 ml PO BID@0800,1730 [facility] Last Admin: 09/14/19 10:17 Dose: 30 ml Atorvastatin Calcium (Lipitor -) 20 mg PO HS [facility] Last Admin: 09/13/19 21:50 Dose: 20 mg Digoxin (Lanoxin -) 0.125 mg PO DAILY [facility] Last Admin: 09/14/19 10:18 Dose: 0.125 mg Diltiazem HCl (Cardizem Cd -) 240 mg PO DAILY [facility] Last Admin: 09/14/19 10:17 Dose: 240 mg Ferrous Sulfate (Feosol -) 325 mg PO DAILY [facility] Last Admin: 09/14/19 10:18 Dose: 325 mg Furosemide (Lasix Injection -) 40 mg IVPUSH DAILY [facility] Last Admin: 09/14/19 10:17 Dose: 40 mg Vancomycin HCl (Vancomycin (Pre-Docked)) 1,000 mg in 250 mls @ 166.667 mls/hr IVPB BID@0600,1800 [facility]; Protocol Last Admin: 09/14/19 06:08 Dose: Not Given Piperacillin Sod/Tazobactam (Sod 3.375 gm/ Dextrose) 50 mls @ 100 mls/hr IVPB Q8H-IV [facility]; Protocol Last Admin: 09/14/19 10:17 Dose: 100 mls/hr Insulin Aspart (Novolog Vial Sliding Scale -) 1 vial SQ ACHS [facility]; Protocol Last Admin: 09/14/19 06:08 Dose: Not Given Levothyroxine Sodium (Synthroid -) 25 mcg PO ACBK [facility] Last Admin: 09/14/19 06:08 Dose: 25 mcg Memantine (Namenda -) 5 mg PO DAILY [facility] Last Admin: 09/14/19 10:17 Dose: 5 mg Metformin HCl (Glucophage -) 500 mg PO ACBK [facility] Last Admin: 09/14/19 06:08 Dose: 500 mg Metoprolol Tartrate (Lopressor -) 25 mg PO BID [facility] Last Admin: 09/14/19 10:18 Dose: 25 mg Prednisone (Deltasone -) 60 mg PO DAILY [facility] Last Admin: 09/14/19 10:18 Dose: 60 mg Rivaroxaban (Xarelto) 20 mg PO DAILY@1800 [facility] Last Admin: 09/13/19 17:02 Dose: 20 mg - Objective Vital Signs: Vital Signs Temperature 98 F 09/14/19 09:00 Pulse Rate 118 H 09/14/19 10:18 Respiratory Rate 20 09/14/19 09:00 Blood Pressure 130/72 09/14/19 09:00 O2 Sat by Pulse Oximetry (%) 95 09/13/19 21:00 Constitutional: Yes: Well Nourished, Calm Eyes: Yes: WNL HENT: Yes: WNL Neck: Yes: WNL Cardiovascular: Yes: Pulse Irregular, S1, S2 Respiratory: Yes: CTA Bilaterally Gastrointestinal: Yes: Normal Bowel Sounds, Soft Extremities: Yes: WNL Edema: No Labs: CBC, BMP Assessment/Plan Problem List - Problems (1) COPD (chronic obstructive pulmonary disease) Code(s): J44.9 - CHRONIC OBSTRUCTIVE PULMONARY DISEASE, UNSPECIFIED (2) CHF (congestive heart failure) Code(s): I50.9 - HEART FAILURE, UNSPECIFIED (3) Dementia Code(s): F03.90 - UNSPECIFIED DEMENTIA WITHOUT BEHAVIORAL DISTURBANCE (4) Anemia Code(s): D64.9 - ANEMIA, UNSPECIFIED (5) Asthma Code(s): J45.909 - UNSPECIFIED ASTHMA, UNCOMPLICATED (6) Diabetes Code(s): E11.9 - TYPE 2 DIABETES MELLITUS WITHOUT COMPLICATIONS (7) HTN (hypertension) Code(s): I10 - ESSENTIAL (PRIMARY) HYPERTENSION (8) History of colon cancer Code(s): Z85.038 - PERSONAL HISTORY OF MALIGNANT NEOPLASM OF LARGE INTESTINE (9) Hypothyroid Code(s): E03.9 - HYPOTHYROIDISM, UNSPECIFIED (10) RBBB Code(s): I45.10 - UNSPECIFIED RIGHT BUNDLE-BRANCH BLOCK Assessment/Plan Prednisone BD TX Standing and PRN Supplemental O2 as needed Rate control AC DR TINSLEY Problem List - Problems (1) COPD (chronic obstructive pulmonary disease) Code(s): J44.9 - CHRONIC OBSTRUCTIVE PULMONARY DISEASE, UNSPECIFIED (2) CHF (congestive heart failure) Code(s): I50.9 - HEART FAILURE, UNSPECIFIED (3) Dementia Code(s): F03.90 - UNSPECIFIED DEMENTIA WITHOUT BEHAVIORAL DISTURBANCE (4) Anemia Code(s): D64.9 - ANEMIA, UNSPECIFIED (5) Asthma Code(s): J45.909 - UNSPECIFIED ASTHMA, UNCOMPLICATED (6) Diabetes Code(s): E11.9 - TYPE 2 DIABETES MELLITUS WITHOUT COMPLICATIONS (7) HTN (hypertension) Code(s): I10 - ESSENTIAL (PRIMARY) HYPERTENSION (8) History of colon cancer Code(s): Z85.038 - PERSONAL HISTORY OF MALIGNANT NEOPLASM OF LARGE INTESTINE (9) Hypothyroid Code(s): E03.9 - HYPOTHYROIDISM, UNSPECIFIED (10) RBBB Code(s): I45.10 - UNSPECIFIED RIGHT BUNDLE-BRANCH BLOCK
--- NOTE | 2019-09-14 15:39 | PN ---
Progress Note, Physician Chief Complaint: The patient appears comfortable at the time of exam. he reports no chest pain, shortness of breath, palpitation or dizziness. Telemetry reviewed, it showed sinus rhythm with episodes of sinus tachycardia, up to 130s. Frequent APCs and occasional VPCs and ventricular couplets. No NSVT noted. History of Present Illness: 79 year old woman with a PMHx of HTN, DM, HLD, afib on rivaroxaban, CHF, CVA with hemiplelgia, dementia, COPD, anemia, hypothyroidism, and gerd sent from [facility] with elevated WBC/+blood Cx's and tachycardia. Patient without complaints except she feels a little wheezy. No chest pain, palpitations, or edema. EKG on admission afib with VR 122bpm, nonspecific T wave abnormalities WBC 18. K 3.1. BNP 30k. Trop 1 with normal CK. TSH wnl. Cr 1.1. CXR 09/11/19 cardiomegaly. Echo 09/12/19: Mild concentric LVH with normal wall motion and systolic function. LVEF = 55-60%. Normal RV. Normal LA and RA in size. No significant valvular abnormalities. - Current Medication List Current Medications: Active Medications Acetaminophen (Tylenol -) 650 mg PO Q6H PRN PRN Reason: FEVER Last Admin: 09/13/19 06:32 Dose: 650 mg Albuterol/Ipratropium (Duoneb -) 1 amp NEB RQID [facility] Last Admin: 09/14/19 11:43 Dose: 1 amp Amino Acids (Prosource No Carb Liquid Pkt) 30 ml PO BID@0800,1730 [facility] Last Admin: 09/14/19 10:17 Dose: 30 ml Atorvastatin Calcium (Lipitor -) 20 mg PO HS [facility] Last Admin: 09/13/19 21:50 Dose: 20 mg Digoxin (Lanoxin -) 0.125 mg PO DAILY [facility] Last Admin: 09/14/19 10:18 Dose: 0.125 mg Diltiazem HCl (Cardizem Cd -) 240 mg PO DAILY [facility] Last Admin: 09/14/19 10:17 Dose: 240 mg Ferrous Sulfate (Feosol -) 325 mg PO DAILY [facility] Last Admin: 09/14/19 10:18 Dose: 325 mg Furosemide (Lasix Injection -) 40 mg IVPUSH DAILY [facility] Last Admin: 09/14/19 10:17 Dose: 40 mg Vancomycin HCl (Vancomycin (Pre-Docked)) 1,000 mg in 250 mls @ 166.667 mls/hr IVPB BID@0600,1800 [facility]; Protocol Last Admin: 09/14/19 06:08 Dose: Not Given Piperacillin Sod/Tazobactam (Sod 3.375 gm/ Dextrose) 50 mls @ 100 mls/hr IVPB Q8H-IV [facility]; Protocol Last Admin: 09/14/19 10:17 Dose: 100 mls/hr Insulin Aspart (Novolog Vial Sliding Scale -) 1 vial SQ ACHS [facility]; Protocol Last Admin: 09/14/19 12:15 Dose: Not Given Levothyroxine Sodium (Synthroid -) [facility] Last Admin: 09/14/19 06:08 Dose: 25 mcg Memantine (Namenda -) 5 mg PO DAILY [facility] Last Admin: 09/14/19 10:17 Dose: 5 mg Metformin HCl (Glucophage -) 500 mg PO BK [facility] Last Admin: 09/14/19 06:08 Dose: 500 mg Metoprolol Tartrate (Lopressor -) 25 mg PO BID [facility] Last Admin: 09/14/19 10:18 Dose: 25 mg Prednisone (Deltasone -) 60 mg PO DAILY [facility] Last Admin: 09/14/19 10:18 Dose: 60 mg Rivaroxaban (Xarelto) 20 mg PO DAILY@1800 [facility] Last Admin: 09/13/19 17:02 Dose: 20 mg - Objective Vital Signs: Vital Signs Temperature 97.3 F L 09/14/19 14:00 Pulse Rate 84 09/14/19 14:00 Respiratory Rate 20 09/14/19 09:00 Blood Pressure 130/76 09/14/19 14:00 O2 Sat by Pulse Oximetry (%) 95 09/14/19 09:00 General: Well developed. Well nourished. No acute distress. Head: Normocephalic. Atraumatic, Eyes: PERRLA, EOMI. Sclerae anicteric. Conjunctivae clear. Neck: Supple. No JVD. No bruits. Heart: Normal S1, S2: Regularly irregular rhythm and tachycardia. Lungs: Symmetrical air entry. Expiratory crackles. No rales or rhonchi. Abdomen: Soft. Bowel sound positive. Non tender. No masses. Extremities: No edema. No clubbing or cyanosis. PD 2+, equal bilaterally. Labs: CBC, BMP 09/13/19 05:45 09/13/19 05:45 INR, PTT INR 1.34 (0.83-1.09) H 09/09/19 15:23 Assessment/Plan 79 year old woman with a PMHx of HTN, DM, HLD, afib on rivaroxaban, CHF, CVA with hemiplelgia, dementia, COPD, anemia, hypothyroidism, and gerd sent from [facility] with elevated WBC/+blood Cx's and tachycardia. Patient without complaints except she feels a little wheezy. No chest pain, palpitations, or edema. EKG on admission afib with VR 122bpm, nonspecific T wave abnormalities WBC 18. K 3.1. BNP 30k. Trop 1 with normal CK. TSH wnl. Cr 1.1. CXR 09/11/19 cardiomegaly. Echo 09/12/19: Mild concentric LVH with normal wall motion and systolic function. LVEF = 55-60%. Normal RV. Normal LA and RA in size. No significant valvular abnormalities. 1) Paroxysmal atrial fibrillation. Currently in sinus rhythm with mild sinus tachycardia. Frequent APCs and VPCs. Increase metoprolol to 50 mg BID Continue diltiazem 240mg PO daily. Digoxin was discontinued. Continue rivaroxaban 20 mg daily for recurrent stroke prevention. 2) NSVT: likely due to hypokalemia. Monitor electrolytes daily. keep K>4, Mg >2 2) CHF -Some congestion with bnp elevated and Cr 1.1 Continue furosemide 40mg IV daily Monitor I/Os and lytes Keep K >4 and M >2 Elevated troponin with normal CK, no chest pain, and no acute ekg changes likely in setting of chf. echo showed normal lvef, mild valvular abnl 3) COPD Steroids as per primary team 4) ID Elevated WBC On antibiotics as per primary team.
[2019-09-14] MEDS: RIVAROXABAN 20 MG TABLET PO SCH (17:36)
[2019-09-14] MEDS ORDERED: PT OWN MED DRAWER 7, Y5N ONE (17:54)
[2019-09-14] MEDS: METOPROLOL TARTRATE 50 MG TABLET (FP) PO SCH (23:41)
[2019-09-14] MEDS: ATORVASTATIN CA 20 MG TABLET (FP) PO SCH (23:41)
[2019-09-15] MEDS ORDERED: PIPERACILLIN/TAZOBACTAM 3.375 GM VIAL IVPB ONE ×3 (01:48→17:01)
[2019-09-15] MEDS ORDERED: DEXTROSE 5%-WATER - 50 ML IVPB ONE ×3 (01:48→17:01)
[2019-09-15] MEDS: PIPERACILLIN/TAZOB 3.375 GM 3.375 GM in DEXTROSE 5%-WATER - 50 ML IVPB SCH ×3 (01:49→17:00)
[2019-09-15] MEDS: VANCOMYCIN 1 GRAM (PRE-DOCKED) 1,000 MG/250 ML BAG IVPB SCH ×2 (08:00→17:59)
[2019-09-15] MEDS: INSULIN SLIDING SCALE (NOVOLOG) 1 VIAL SQ SCH ×4 (08:00→21:56)
[2019-09-15] MEDS: LEVOTHYROXINE NA 25 MCG TABLET (FP) PO SCH (08:00)
[2019-09-15] MEDS: metFORMIN HCL 500 MG TABLET (FP) PO SCH (08:00)
[2019-09-15] MEDS: FUROSEMIDE 40 MG/4 ML INJECTABLE VIAL IVPUSH SCH (09:28)
[2019-09-15] MEDS: FERROUS SO4 325 MG TABLET (FP) PO SCH (09:29)
[2019-09-15] MEDS: predniSONE 20 MG TABLET (UD) PO SCH (09:29)
[2019-09-15] MEDS: AMINO ACIDS/PROTEIN HYDROLYS 30 ML LIQUID.PKT PO SCH ×2 (09:29→18:00)
[2019-09-15] MEDS: METOPROLOL TARTRATE 50 MG TABLET (FP) PO SCH ×2 (09:29→21:49)
[2019-09-15] MEDS: MEMANTINE HCL 5 MG TABLET (UD) PO SCH (09:29)
--- NOTE | 2019-09-15 09:48 | PN ---
Progress Note, Physician Chief Complaint: AWAKE ALERT DENIES CHEST PAIN +APPETITE I SPOKE WITH YANELI MIX MT TODAY FOR BETTER UNDERSTANDING OF PREVIOUS BLOOD CULTURES AND ANTIBIOTIC REGIMEN. - Current Medication List Current Medications: Active Medications Acetaminophen (Tylenol -) 650 mg PO Q6H PRN PRN Reason: FEVER Last Admin: 09/13/19 06:32 Dose: 650 mg Documented by: Amino Acids (Prosource No Carb Liquid Pkt) 30 ml PO BID@0800,1730 [facility] Last Admin: 09/15/19 09:29 Dose: 30 ml Documented by: Atorvastatin Calcium (Lipitor -) 20 mg PO HS [facility] Last Admin: 09/14/19 23:41 Dose: 20 mg Documented by: Diltiazem HCl (Cardizem Cd -) 240 mg PO DAILY [facility] Last Admin: 09/15/19 09:29 Dose: 240 mg Documented by: Ferrous Sulfate (Feosol -) 325 mg PO DAILY [facility] Last Admin: 09/15/19 09:29 Dose: 325 mg Documented by: Furosemide (Lasix Injection -) 40 mg IVPUSH DAILY [facility] Last Admin: 09/15/19 09:28 Dose: 40 mg Documented by: Vancomycin HCl (Vancomycin (Pre-Docked)) 1,000 mg in 250 mls @ 166.667 mls/hr IVPB BID@0600,1800 [facility]; Protocol Last Admin: 09/14/19 17:37 Dose: 166.667 mls/hr Documented by: Piperacillin Sod/Tazobactam (Sod 3.375 gm/ Dextrose) 50 mls @ 100 mls/hr IVPB Q8H-IV [facility]; Protocol Last Admin: 09/15/19 09:28 Dose: 100 mls/hr Documented by: Insulin Aspart (Novolog Vial Sliding Scale -) 1 vial SQ ACHS [facility]; Protocol Last Admin: 09/14/19 23:41 Dose: 4 units Documented by: Levothyroxine Sodium (Synthroid -) 25 mcg PO ACBK [facility] Last Admin: 09/14/19 06:08 Dose: 25 mcg Documented by: Memantine (Namenda -) 5 mg PO DAILY [facility] Last Admin: 09/15/19 09:29 Dose: 5 mg Documented by: Metformin HCl (Glucophage -) 500 mg PO ACBK [facility] Last Admin: 09/14/19 06:08 Dose: 500 mg Documented by: Metoprolol Tartrate (Lopressor -) 50 mg PO BID [facility] Last Admin: 09/15/19 09:29 Dose: 50 mg Documented by: Prednisone (Deltasone -) 60 mg PO DAILY [facility] Last Admin: 09/15/19 09:29 Dose: 60 mg Documented by: Rivaroxaban (Xarelto) 20 mg PO DAILY@1800 [facility] Last Admin: 09/14/19 17:36 Dose: 20 mg Documented by: - Objective Vital Signs: Vital Signs Temperature 97.9 F 09/15/19 02:00 Pulse Rate 86 09/15/19 02:00 Respiratory Rate 20 09/15/19 02:00 Blood Pressure 117/70 09/15/19 02:00 O2 Sat by Pulse Oximetry (%) 98 09/14/19 21:00 Constitutional: Yes: No Distress Cardiovascular: Yes: Pulse Irregular Respiratory: Yes: Diminished, On Nasal O2 Gastrointestinal: Yes: Soft, Abdomen, Obese Genitourinary: Yes: Incontinence Musculoskeletal: Yes: Muscle Weakness Edema: LLE: Trace, RLE: Trace Wound/Incision: Yes: Open to air Neurological: Yes: Confusion, Pre-Existing Deficit Labs: CBC, BMP 09/13/19 05:45 09/13/19 05:45 INR, PTT INR 1.34 (0.83-1.09) H 09/09/19 15:23 Problem List - Problems (1) CHF (congestive heart failure) Code(s): I50.9 - HEART FAILURE, UNSPECIFIED (2) Dementia Code(s): F03.90 - UNSPECIFIED DEMENTIA WITHOUT BEHAVIORAL DISTURBANCE (3) Rapid atrial fibrillation Code(s): I48.91 - UNSPECIFIED ATRIAL FIBRILLATION (4) Sepsis Code(s): A41.9 - SEPSIS, UNSPECIFIED ORGANISM (5) Anemia Code(s): D64.9 - ANEMIA, UNSPECIFIED (6) Asthma Code(s): J45.909 - UNSPECIFIED ASTHMA, UNCOMPLICATED (7) Diabetes Code(s): E11.9 - TYPE 2 DIABETES MELLITUS WITHOUT COMPLICATIONS (8) HTN (hypertension) Code(s): I10 - ESSENTIAL (PRIMARY) HYPERTENSION (9) History of colon cancer Code(s): Z85.038 - PERSONAL HISTORY OF MALIGNANT NEOPLASM OF LARGE INTESTINE (10) Hypothyroid Code(s): E03.9 - HYPOTHYROIDISM, UNSPECIFIED (11) RBBB Code(s): I45.10 - UNSPECIFIED RIGHT BUNDLE-BRANCH BLOCK Assessment/Plan LEUKOCYTOSIS PERSISTS ON IV ABX FOR GRAM + COCCI IN [facility] AT [facility] STARTED ON ZOSYN AND VANCO WITH PICC LINE ZOSYN STARTED 08/25 -09/06 VANCO 09/01-09/06 ADMITTED Aug HERE AT [facility] BLOOD CULTURES NEGATIVE ONCOLOGY CONSULT DR TORRES PERSISTENT LEUKOCYTOSIS R/O MDS WILL D/W DR BRAVO FROM ID DVT PROPHYLAXIS
[2019-09-15 11:48] LABS: HEMOGLOBIN 13.7 GM/dL (10.7-15.3); MCH 27.9 pg (25.7-33.7); MCHC 32.6 g/dl (32.0-36.0); MEAN CELL VOLUME 85.7 fl (80-96); MEAN PLT VOLUME 8.5 fl (7.5-11.1); PLATELET COUNT 370 K/MM3 (134-434); RDW 16.6 % (11.6-15.6); WHITE BLOOD COUNT 24.7 K/mm3 (4.0-10.0)
[2019-09-15 12:32] LABS: BILIRUBIN,TOTAL 0.6 mg/dL (0.2-1); BLOOD UREA NITROGEN 42.3 mg/dL (7-18); CALCIUM 7.6 mg/dL (8.5-10.1); CREATININE 1.4 mg/dL (0.55-1.3); MAGNESIUM 1.2 mg/dL (1.8-2.4); TOT PROT 6.3 g/dl (6.4-8.2)
[2019-09-15 12:37] LABS: POTASSIUM 2.9 mmol/L (3.5-5.1)
--- NOTE | 2019-09-15 15:04 | PN ---
Progress Note, Physician Chief Complaint: The patient appears comfortable at the time of exam. he reports no chest pain, shortness of breath, palpitation or dizziness. Telemetry reviewed, it showed sinus rhythm with improved sinus tachycardia. History of Present Illness: 79 year old woman with a PMHx of HTN, DM, HLD, afib on rivaroxaban, CHF, CVA with hemiplelgia, dementia, COPD, anemia, hypothyroidism, and gerd sent from [facility] with elevated WBC/+blood Cx's and tachycardia. Patient without complaints except she feels a little wheezy. No chest pain, palpitations, or edema. EKG on admission afib with VR 122bpm, nonspecific T wave abnormalities WBC 18. K 3.1. BNP 30k. Trop 1 with normal CK. TSH wnl. Cr 1.1. CXR 09/11/19 cardiomegaly. Echo 09/12/19: Mild concentric LVH with normal wall motion and systolic function. LVEF = 55-60%. Normal RV. Normal LA and RA in size. No significant valvular abnormalities. - Current Medication List Current Medications: Active Medications Acetaminophen (Tylenol -) 650 mg PO Q6H PRN PRN Reason: FEVER Last Admin: 09/13/19 06:32 Dose: 650 mg Documented by: Amino Acids (Prosource No Carb Liquid Pkt) 30 ml PO BID@0800,1730 [facility] Last Admin: 09/15/19 09:29 Dose: 30 ml Documented by: Atorvastatin Calcium (Lipitor -) 20 mg PO HS [facility] Last Admin: 09/14/19 23:41 Dose: 20 mg Documented by: Diltiazem HCl (Cardizem Cd -) 240 mg PO DAILY [facility] Last Admin: 09/15/19 09:29 Dose: 240 mg Documented by: Ferrous Sulfate (Feosol -) 325 mg PO DAILY [facility] Last Admin: 09/15/19 09:29 Dose: 325 mg Documented by: Furosemide (Lasix Injection -) 40 mg IVPUSH DAILY [facility] Last Admin: 09/15/19 09:28 Dose: 40 mg Documented by: Vancomycin HCl (Vancomycin (Pre-Docked)) 1,000 mg in 250 mls @ 166.667 mls/hr IVPB BID@0600,1800 [facility]; Protocol Last Admin: 09/14/19 17:37 Dose: 166.667 mls/hr Documented by: Piperacillin Sod/Tazobactam (Sod 3.375 gm/ Dextrose) 50 mls @ 100 mls/hr IVPB Q8H-IV [facility]; Protocol Last Admin: 09/15/19 09:28 Dose: 100 mls/hr Documented by: Insulin Aspart (Novolog Vial Sliding Scale -) 1 vial SQ ACHS [facility]; Protocol Last Admin: 09/15/19 12:19 Dose: Not Given Documented by: Levothyroxine Sodium (Synthroid -) 25 mcg PO [facility] Last Admin: 09/14/19 06:08 Dose: 25 mcg Documented by: Memantine (Namenda -) 5 mg PO DAILY [facility] Last Admin: 09/15/19 09:29 Dose: 5 mg Documented by: Metformin HCl (Glucophage -) 500 mg PO [facility] Last Admin: 09/14/19 06:08 Dose: 500 mg Documented by: Metoprolol Tartrate (Lopressor -) 50 mg PO BID [facility] Last Admin: 09/15/19 09:29 Dose: 50 mg Documented by: Prednisone (Deltasone -) 60 mg PO DAILY [facility] Last Admin: 09/15/19 09:29 Dose: 60 mg Documented by: Rivaroxaban (Xarelto) 20 mg PO DAILY@1800 [facility] Last Admin: 09/14/19 17:36 Dose: 20 mg Documented by: - Objective Vital Signs: Vital Signs Temperature 98.2 F 09/15/19 14:00 Pulse Rate 73 09/15/19 14:00 Respiratory Rate 18 09/15/19 14:00 Blood Pressure 127/69 09/15/19 14:00 O2 Sat by Pulse Oximetry (%) 97 09/15/19 09:00 General: Well developed. Well nourished. No acute distress. Head: Normocephalic. Atraumatic, Eyes: PERRLA, EOMI. Sclerae anicteric. Conjunctivae clear. Neck: Supple. No JVD. No bruits. Heart: Normal S1, S2: Regularly irregular rhythm and tachycardia. Lungs: Symmetrical air entry. Expiratory crackles. No rales or rhonchi. Abdomen: Soft. Bowel sound positive. Non tender. No masses. Extremities: No edema. No clubbing or cyanosis. PD 2+, equal bilaterally. Labs: CBC, BMP 09/15/19 11:22 09/15/19 11:22 INR, PTT INR 1.34 (0.83-1.09) H 09/09/19 15:23 Assessment/Plan 79 year old woman with a PMHx of HTN, DM, HLD, afib on rivaroxaban, CHF, CVA with hemiplelgia, dementia, COPD, anemia, hypothyroidism, and gerd sent from [facility] with elevated WBC/+blood Cx's and tachycardia. Patient without complaints except she feels a little wheezy. No chest pain, palpitations, or edema. EKG on admission afib with VR 122bpm, nonspecific T wave abnormalities WBC 18. K 3.1. BNP 30k. Trop 1 with normal CK. TSH wnl. Cr 1.1. CXR 09/11/19 cardi omegaly. Echo 09/12/19: Mild concentric LVH with normal wall motion and systolic function. LVEF = 55-60%. Normal RV. Normal LA and RA in size. No significant valvular abnormalities. 1) Paroxysmal atrial fibrillation. Currently in sinus rhythm with mild sinus tachycardia. Frequent APCs and VPCs. Increase metoprolol to 50 mg BID Continue diltiazem 240mg PO daily. Digoxin was discontinued. Continue rivaroxaban 20 mg daily for recurrent stroke prevention. 2) NSVT: Resolved. Monitor electrolytes daily. keep K>4, Mg >2 3) CHF -Some congestion with bnp elevated and Cr 1.1 May change furosemide to PO 40mg daily Keep K >4 and M >2 Elevated troponin with normal CK, no chest pain, and no acute ekg changes likely in setting of chf. echo showed normal lvef, mild valvular abnl 4) ID Elevated WBC On antibiotics as per primary team. May discontinue tele. Please do not hesitate to call us for reconsult at any time if any further questions or additional issue arises regarding this patient.
--- NOTE | 2019-09-15 15:12 | PN ---
Progress Note (short form) - Note Progress Note: Resting in NAD. No CP or SOB. No acute events overnight. Intake & Output 09/12/19 09/13/19 09/14/19 09/15/19 23:59 23:59 23:59 23:59 Intake Total 1490 760 820 Balance 1490 760 820 Weight 133 lb 6.4 oz 132 lb Last Vital Signs Temp Pulse Resp BP Pulse Ox 98.2 F 73 18 127/69 97 09/15/19 14:00 09/15/19 14:00 09/15/19 14:00 09/15/19 14:00 09/15/19 09:00 Active Medications Acetaminophen (Tylenol -) 650 mg PO Q6H PRN PRN Reason: FEVER Last Admin: 09/13/19 06:32 Dose: 650 mg Documented by: Amino Acids (Prosource No Carb Liquid Pkt) 30 ml PO BID@0800,1730 [facility] Last Admin: 09/15/19 09:29 Dose: 30 ml Documented by: Atorvastatin Calcium (Lipitor -) 20 mg PO HS [facility] Last Admin: 09/14/19 23:41 Dose: 20 mg Documented by: Diltiazem HCl (Cardizem Cd -) 240 mg PO DAILY [facility] Last Admin: 09/15/19 09:29 Dose: 240 mg Documented by: Ferrous Sulfate (Feosol -) 325 mg PO DAILY [facility] Last Admin: 09/15/19 09:29 Dose: 325 mg Documented by: Furosemide (Lasix Injection -) 40 mg IVPUSH DAILY [facility] Last Admin: 09/15/19 09:28 Dose: 40 mg Documented by: Vancomycin HCl (Vancomycin (Pre-Docked)) 1,000 mg in 250 mls @ 166.667 mls/hr IVPB BID@0600,1800 [facility]; Protocol Last Admin: 09/14/19 17:37 Dose: 166.667 mls/hr Documented by: Piperacillin Sod/Tazobactam (Sod 3.375 gm/ Dextrose) 50 mls @ 100 mls/hr IVPB Q8H-IV [facility]; Protocol Last Admin: 09/15/19 09:28 Dose: 100 mls/hr Documented by: Insulin Aspart (Novolog Vial Sliding Scale -) 1 vial SQ ACHS [facility]; Protocol Last Admin: 09/15/19 12:19 Dose: Not Given Documented by: Levothyroxine Sodium (Synthroid -) 25 mcg PO ACBK [facility] Last Admin: 09/14/19 06:08 Dose: 25 mcg Documented by: Memantine (Namenda -) 5 mg PO DAILY [facility] Last Admin: 09/15/19 09:29 Dose: 5 mg Documented by: Metformin HCl (Glucophage -) 500 mg PO ACBK [facility] Last Admin: 09/14/19 06:08 Dose: 500 mg Documented by: Metoprolol Tartrate (Lopressor -) 50 mg PO BID [facility] Last Admin: 09/15/19 09:29 Dose: 50 mg Documented by: Prednisone (Deltasone -) 60 mg PO DAILY [facility] Last Admin: 09/15/19 09:29 Dose: 60 mg Documented by: Rivaroxaban (Xarelto) 20 mg PO DAILY@1800 [facility] Last Admin: 09/14/19 17:36 Dose: 20 mg Documented by: Constitutional: Yes: No Distress Eyes: Yes: Conjunctiva Clear, EOM Intact HENT: Yes: Atraumatic, Normocephalic Neck: Yes: Supple, Trachea Midline Cardiovascular: Yes: Regular Rate and Rhythm Respiratory: Yes: Cough, Diminished, On Nasal O2, Rhonchi. No: Accessory Muscle Use, Rales, SOB, SOB on Exertion, Stridor, Tachypnea, Wheezes ...Inspection: Yes: WNL ...Clubbing: No Gastrointestinal: Yes: Normal Bowel Sounds, Soft Renal/: Yes: WNL Musculoskeletal: Yes: WNL Extremities: Yes: WNL Edema: No Peripheral Pulses WNL: Yes Integumentary: Yes: WNL Neurological: Yes: Pre-Existing Deficit Psychiatric: Yes: Alert, Oriented Labs: Laboratory Results - last 24 hr 09/14/19 09/14/19 09/15/19 16:57 20:40 06:58 WBC RBC Hgb Hct MCV MCH MCHC RDW Plt Count MPV Sodium Potassium Chloride Carbon Dioxide Anion Gap BUN Creatinine Est GFR (CKD-EPI)AfAm Est GFR (CKD-EPI)NonAf POC Glucometer 287 237 123 Random Glucose Calcium Magnesium Total Bilirubin AST ALT Alkaline Phosphatase Total Protein Albumin 09/15/19 09/15/19 09/15/19 11:14 11:22 11:22 WBC 24.7 H RBC 4.90 Hgb 13.7 Hct 42.0 MCV 85.7 MCH 27.9 MCHC 32.6 RDW 16.6 H Plt Count 370 MPV 8.5 Sodium 135 L Potassium 2.9 L* Chloride 88 L Carbon Dioxide 35 H Anion Gap 12 BUN 42.3 H Creatinine 1.4 H Est GFR (CKD-EPI)AfAm 41.61 Est GFR (CKD-EPI)NonAf 35.90 POC Glucometer 98 Random Glucose 93 Calcium 7.6 L Magnesium 1.2 L Total Bilirubin 0.6 AST 20 ALT 41 Alkaline Phosphatase 104 Total Protein 6.3 L Albumin 3.0 L Imaging - Results Chest X-ray: Report Reviewed, Image Reviewed Problem List - Problems (1) COPD (chronic obstructive pulmonary disease) Code(s): J44.9 - CHRONIC OBSTRUCTIVE PULMONARY DISEASE, UNSPECIFIED (2) CHF (congestive heart failure) Code(s): I50.9 - HEART FAILURE, UNSPECIFIED (3) Dementia Code(s): F03.90 - UNSPECIFIED DEMENTIA WITHOUT BEHAVIORAL DISTURBANCE (4) Anemia Code(s): D64.9 - ANEMIA, UNSPECIFIED (5) Asthma Code(s): J45.909 - UNSPECIFIED ASTHMA, UNCOMPLICATED (6) Diabetes Code(s): E11.9 - TYPE 2 DIABETES MELLITUS WITHOUT COMPLICATIONS (7) HTN (hypertension) Code(s): I10 - ESSENTIAL (PRIMARY) HYPERTENSION (8) History of colon cancer Code(s): Z85.038 - PERSONAL HISTORY OF MALIGNANT NEOPLASM OF LARGE INTESTINE (9) Hypothyroid Code(s): E03.9 - HYPOTHYROIDISM, UNSPECIFIED (10) RBBB Code(s): I45.10 - UNSPECIFIED RIGHT BUNDLE-BRANCH BLOCK Assessment/Plan Prednisone BD TX Standing and PRN Supplemental O2 as needed Rate control AC Dr [place] Problem List - Problems (1) COPD (chronic obstructive pulmonary disease) Code(s): J44.9 - CHRONIC OBSTRUCTIVE PULMONARY DISEASE, UNSPECIFIED (2) CHF (congestive heart failure) Code(s): I50.9 - HEART FAILURE, UNSPECIFIED (3) Dementia Code(s): F03.90 - UNSPECIFIED DEMENTIA WITHOUT BEHAVIORAL DISTURBANCE (4) Anemia Code(s): D64.9 - ANEMIA, UNSPECIFIED (5) Asthma Code(s): J45.909 - UNSPECIFIED ASTHMA, UNCOMPLICATED (6) Diabetes Code(s): E11.9 - TYPE 2 DIABETES MELLITUS WITHOUT COMPLICATIONS (7) HTN (hypertension) Code(s): I10 - ESSENTIAL (PRIMARY) HYPERTENSION (8) History of colon cancer Code(s): Z85.038 - PERSONAL HISTORY OF MALIGNANT NEOPLASM OF LARGE INTESTINE (9) Hypothyroid Code(s): E03.9 - HYPOTHYROIDISM, UNSPECIFIED (10) RBBB Code(s): I45.10 - UNSPECIFIED RIGHT BUNDLE-BRANCH BLOCK
--- NOTE | 2019-09-15 16:18 | CONSULT ---
Consultation: CONSULT SERVICE: Hematology/Oncology Resident HISTORY OF PRESENT ILLNESS: 79yo F with h/o mild dementia, prior CVA, HTN, HLD, Atrial fibrillation, CHF with known RBBB, COPD, prior colon Ca, hypothyroidism who originally presented from [facility] due to positive blood cultures for Gram + cocci in clusters on 08/24/2019. Pt was initiated on antibiotics and was noted to have tachycardia to 180's. During her workup, pt was noted to have persistent leukocytosis for which were were consulted. She is being evaluated by primary team and pulmonology teams as well due to shortness of breath that occurred during her hospital course. She has been on corticosteroids as a result, however her leukocytosis has persisted with previous records dating from 2016. PMHX: As above PSHx: Colectomy, Hernia repair (10 yrs prior), Tubal ligation SoHx: Tobacco - current smoker Alcohol - None Drugs - None CT resident REVIEW OF SYSTEMS: As per HPI PHYSICAL EXAMINATION Vital Signs - 24 hr 09/14/19 09/14/19 09/14/19 17:00 21:00 22:00 Temperature 97.8 F Pulse Rate 78 72 Respiratory 20 18 18 Rate Blood Pressure 116/77 121/70 O2 Sat by Pulse 98 Oximetry (%) 09/15/19 09/15/19 09/15/19 02:00 09:00 10:00 Temperature 97.9 F 98.0 F Pulse Rate 86 83 Respiratory 20 22 H 22 H Rate Blood Pressure 117/70 125/73 O2 Sat by Pulse 97 Oximetry (%) 09/15/19 14:00 Temperature 98.2 F Pulse Rate 73 Respiratory 18 Rate Blood Pressure 127/69 O2 Sat by Pulse Oximetry (%) GENERAL: Awake, alert, in no acute distress. HEENT: NC/AT, MACHELLE, sclera anicteric, MMM LUNGS: CTA bilaterally, poor inspiratory effort. No wheezes, and no crackles. No accessory muscle use. 2LNC HEART:Irregularly irregular with normal rate, normal S1 and S2 without murmur ABDOMEN: Soft, NT/ND, normoactive bowel sounds, no guarding. No splenomegaly EXTREMITIES: 2+ pulses, warm, well-perfused. No calf tenderness. No peripheral edema. PSYCHIATRIC: Cooperative. Good eye contact. Appropriate mood and affect. SKIN: Warm, dry, no rashes noted. Laboratory Results - last 24 hr 09/14/19 09/14/19 09/15/19 16:57 20:40 06:58 WBC RBC Hgb Hct MCV MCH MCHC RDW Plt Count MPV Sodium Potassium Chloride Carbon Dioxide Anion Gap BUN Creatinine Est GFR (CKD-EPI)AfAm Est GFR (CKD-EPI)NonAf POC Glucometer 287 237 123 Random Glucose Calcium Magnesium Total Bilirubin AST ALT Alkaline Phosphatase Total Protein Albumin 09/15/19 09/15/19 09/15/19 11:14 11:22 11:22 WBC 24.7 H RBC 4.90 Hgb 13.7 Hct 42.0 MCV 85.7 MCH 27.9 MCHC 32.6 RDW 16.6 H Plt Count 370 MPV 8.5 Sodium 135 L Potassium 2.9 L* Chloride 88 L Carbon Dioxide 35 H Anion Gap 12 BUN 42.3 H Creatinine 1.4 H Est GFR (CKD-EPI)AfAm 41.61 Est GFR (CKD-EPI)NonAf 35.90 POC Glucometer 98 Random Glucose 93 Calcium 7.6 L Magnesium 1.2 L Total Bilirubin 0.6 AST 20 ALT 41 Alkaline Phosphatase 104 Total Protein 6.3 L Albumin 3.0 L Active Medications Generic Name Dose Route Start Last Admin Trade Name Freq PRN Reason Stop Dose Admin Acetaminophen 650 mg 09/09/19 16:53 09/13/19 06:32 Tylenol - PO 650 mg Q6H PRN Administration FEVER Amino Acids 30 ml 09/12/19 17:30 09/15/19 09:29 Prosource No Carb Liquid Pkt PO 30 ml BID@0800,1730 KAREN Administration Atorvastatin Calcium 20 mg 09/11/19 22:00 09/14/19 23:41 Lipitor - PO 20 mg HS KAREN Administration Diltiazem HCl 240 mg 09/11/19 10:00 09/15/19 09:29 Cardizem Cd - PO 240 mg DAILY KAREN Administration Ferrous Sulfate 325 mg 09/10/19 10:00 09/15/19 09:29 Feosol - PO 325 mg DAILY KAREN Administration Furosemide 40 mg 09/11/19 11:00 09/15/19 09:28 Lasix Injection - IVPUSH 40 mg DAILY KAREN Administration Vancomycin HCl 1,000 mg in 250 mls @ 166.667 mls/hr 09/10/19 18:00 09/15/19 08:00 Vancomycin (Pre-Docked) IVPB Not Given BID@0600,1800 [facility] Protocol Piperacillin Sod/Tazobactam 50 mls @ 100 mls/hr 09/10/19 18:00 09/15/19 09:28 Sod 3.375 gm/ Dextrose IVPB 100 mls/hr Q8H-IV KAREN Administration Protocol Insulin Aspart 1 vial 09/09/19 22:00 09/15/19 12:19 Novolog Vial Sliding Scale - SQ Not Given ACHS [facility] Protocol Levothyroxine Sodium 25 mcg 09/10/19 07:00 09/15/19 08:00 Synthroid - PO Not Given ACBK KAREN Memantine 5 mg 09/10/19 10:00 09/15/19 09:29 Namenda - PO 5 mg DAILY KAREN Administration Metformin HCl 500 mg 09/10/19 07:00 09/15/19 08:00 Glucophage - PO Not Given ACBK KAREN Metoprolol Tartrate 50 mg 09/14/19 15:43 09/15/19 09:29 Lopressor - PO 50 mg BID KAREN Administration Prednisone 60 mg 09/10/19 10:00 09/15/19 09:29 Deltasone - PO 60 mg DAILY KAREN Administration Rivaroxaban 20 mg 09/09/19 18:00 09/14/19 17:36 Xarelto PO 20 mg DAILY@1800 KAREN Administration ASSESSMENT/PLAN: Persistent leukocytosis Neutrophilia Acute kidney insufficiency Paroxysmal Atrial fibrillation COPD mild exacerbation? Hypokalemia Hypomagnesemia --Persisent leukocytosis in the acute setting possibly multifactorial with prednisone use --Neutrophilia speaks against malignant cell line at this juncture --With above being said, leukocytosis has persisted throughout her previous visits and will send Flow, JAK2, and PCR-ABL for r/o myeloproliferative disease --Rest per primary teams --Monitor for abnormalities of other cell lines --Replete electrolytes Case discussed with Dr. Chel Wilson, DO - IM PGY-3 Visit type - Emergency Visit Emergency Visit: Yes ED Registration Date: 09/09/19 Care time: The patient presented to the Emergency Department on the above date and was hospitalized for further evaluation of their emergent condition. - New Patient This patient is new to me today: No - Critical Care Critical Care patient: No ATTENDING PHYSICIAN STATEMENT I saw and evaluated the patient. I reviewed the resident's note and discussed the case with the resident. I agree with the resident's findings and plan as documented. SUBJECTIVE: OBJECTIVE: ASSESSMENT AND PLAN:
[2019-09-15] MEDS ORDERED: MAGNESIUM SULF 50% (8.12 MEQ/2 ML-1 GM VIAL) IVPB ONE (17:14)
[2019-09-15] MEDS: RIVAROXABAN 20 MG TABLET PO SCH (18:01)
[2019-09-15] MEDS: KCL 10 MEQ IVPB 10 MEQ/100 ML INFUS.BAG IVPB SCH ×3 (18:07→22:12)
--- NOTE | 2019-09-15 20:48 | PN ---
Teaching Attending Note Name of Resident: Reza Wilson ATTENDING PHYSICIAN STATEMENT I saw and evaluated the patient. I reviewed the resident's note and discussed the case with the resident. I agree with the resident's findings and plan as documented. SUBJECTIVE: Voices no complaints. Pleasant OBJECTIVE: Last Vital Signs Temp Pulse Resp BP Pulse Ox 98.6 F 70 20 121/58 L 97 09/15/19 17:00 09/15/19 17:00 09/15/19 17:00 09/15/19 17:00 09/15/19 09:00 General: NAD HEENT: MMM CVS: S1, S2 Lungs: CTAB Abdomen: Soft, NT, ND Extremities: No edema Neuro: Moves all extremities 09/15/19 11:22 09/15/19 11:22 Current Medications Generic Name Dose Route Start Last Admin Trade Name Freq PRN Reason Stop Dose Admin Acetaminophen 650 mg 09/09/19 16:53 09/13/19 06:32 Tylenol - PO 650 mg Q6H PRN Administration FEVER Amino Acids 30 ml 09/12/19 17:30 09/15/19 18:00 Prosource No Carb Liquid Pkt PO Not Given BID@0800,1730 KAREN Atorvastatin Calcium 20 mg 09/11/19 22:00 09/14/19 23:41 Lipitor - PO 20 mg HS KAREN Administration Diltiazem HCl 240 mg 09/11/19 10:00 09/15/19 09:29 Cardizem Cd - PO 240 mg DAILY KAREN Administration Ferrous Sulfate 325 mg 09/10/19 10:00 09/15/19 09:29 Feosol - PO 325 mg DAILY KAREN Administration Furosemide 40 mg 09/11/19 11:00 09/15/19 09:28 Lasix Injection - IVPUSH 40 mg DAILY KAREN Administration Vancomycin HCl 1,000 mg in 250 mls @ 166.667 mls/hr 09/10/19 18:00 09/15/19 17:59 Vancomycin (Pre-Docked) IVPB 166.667 mls/hr BID@0600,1800 KAREN Administration Protocol Piperacillin Sod/Tazobactam 50 mls @ 100 mls/hr 09/10/19 18:00 09/15/19 17:00 Sod 3.375 gm/ Dextrose IVPB 100 mls/hr Q8H-IV KAREN Administration Protocol Insulin Aspart 1 vial 09/09/19 22:00 09/15/19 18:07 Novolog Vial Sliding Scale - SQ 6 units ACHS KAREN Administration Protocol Levothyroxine Sodium 25 mcg 09/10/19 07:00 09/15/19 08:00 Synthroid - PO Not Given ACBK KAREN Memantine 5 mg 09/10/19 10:00 09/15/19 09:29 Namenda - PO 5 mg DAILY KAREN Administration Metformin HCl 500 mg 09/10/19 07:00 09/15/19 08:00 Glucophage - PO Not Given ACBK KAREN Metoprolol Tartrate 50 mg 09/14/19 15:43 09/15/19 09:29 Lopressor - PO 50 mg BID KAREN Administration Prednisone 60 mg 09/10/19 10:00 09/15/19 09:29 Deltasone - PO 60 mg DAILY KAREN Administration Rivaroxaban 20 mg 09/09/19 18:00 09/15/19 18:01 Xarelto PO 20 mg DAILY@1800 KAREN Administration ASSESSMENT AND PLAN: 79 y/o lady with h/o mild dementia, prior CVA, HTN, HLD, Atrial fibrillation, CHF with known RBBB, COPD, prior colon Ca, hypothyroidism who originally presented from [facility] due to positive blood cultures for Gram + cocci in clusters on 08/24/2019. Developed PAT and SOB. 1. Neutrophilia. Present in chart since 05/2014. She has now multiple reasons for neutrophilia, including acute infection, severe stress (catecolamines) and recent glucocorticoid use. Agree with additional investigations to rule out primary hematologic disorder such: peripheral blood smear review by pathology, flow cytometry (peripheral blood), JAK2 V617F, BCR-ABL. 2. Rest of recommendations per Dr. Wilson's note. 3. Thank you for this consultation
[2019-09-15] MEDS: ATORVASTATIN CA 20 MG TABLET (FP) PO SCH (21:49)
--- NOTE | 2019-09-15 22:28 | PN ---
Progress Note, Physician History of Present Illness: AWAKE, ALERT IN BED OFFERS NO COMPLAINTS NON TOXIC APPEARING - Current Medication List Current Medications: Active Medications Acetaminophen (Tylenol -) 650 mg PO Q6H PRN PRN Reason: FEVER Last Admin: 09/13/19 06:32 Dose: 650 mg Documented by: Amino Acids (Prosource No Carb Liquid Pkt) 30 ml PO BID@0800,1730 [facility] Last Admin: 09/15/19 18:00 Dose: Not Given Documented by: Atorvastatin Calcium (Lipitor -) 20 mg PO HS [facility] Last Admin: 09/15/19 21:49 Dose: 20 mg Documented by: Diltiazem HCl (Cardizem Cd -) 240 mg PO DAILY [facility] Last Admin: 09/15/19 09:29 Dose: 240 mg Documented by: Ferrous Sulfate (Feosol -) 325 mg PO DAILY [facility] Last Admin: 09/15/19 09:29 Dose: 325 mg Documented by: Furosemide (Lasix Injection -) 40 mg IVPUSH DAILY [facility] Last Admin: 09/15/19 09:28 Dose: 40 mg Documented by: Vancomycin HCl (Vancomycin (Pre-Docked)) 1,000 mg in 250 mls @ 166.667 mls/hr IVPB BID@0600,1800 [facility]; Protocol Last Admin: 09/15/19 17:59 Dose: 166.667 mls/hr Documented by: Piperacillin Sod/Tazobactam (Sod 3.375 gm/ Dextrose) 50 mls @ 100 mls/hr IVPB Q8H-IV [facility]; Protocol Last Admin: 09/15/19 17:00 Dose: 100 mls/hr Documented by: Insulin Aspart (Novolog Vial Sliding Scale -) 1 vial SQ ACHS [facility]; Protocol Last Admin: 09/15/19 21:56 Dose: 4 units Documented by: Levothyroxine Sodium (Synthroid -) 25 mcg PO ACBK [facility] Last Admin: 09/15/19 08:00 Dose: Not Given Documented by: Memantine (Namenda -) 5 mg PO DAILY [facility] Last Admin: 09/15/19 09:29 Dose: 5 mg Documented by: Metformin HCl (Glucophage -) 500 mg PO ACBK [facility] Last Admin: 09/15/19 08:00 Dose: Not Given Documented by: Metoprolol Tartrate (Lopressor -) 50 mg PO BID [facility] Last Admin: 09/15/19 21:49 Dose: 50 mg Documented by: Prednisone (Deltasone -) 60 mg PO DAILY [facility] Last Admin: 09/15/19 09:29 Dose: 60 mg Documented by: Rivaroxaban (Xarelto) 20 mg PO DAILY@1800 [facility] Last Admin: 09/15/19 18:01 Dose: 20 mg Documented by: - Objective Vital Signs: Vital Signs Temperature 97.5 F L 09/15/19 21:20 Pulse Rate 64 09/15/19 21:20 Respiratory Rate 20 09/15/19 21:20 Blood Pressure 124/52 L 09/15/19 21:20 O2 Sat by Pulse Oximetry (%) 97 09/15/19 09:00 Constitutional: Yes: No Distress Cardiovascular: Yes: Regular Rate and Rhythm, S1, S2 Respiratory: Yes: CTA Bilaterally Gastrointestinal: Yes: Normal Bowel Sounds, Soft Labs: CBC, BMP 09/15/19 11:22 09/15/19 11:22 INR, PTT INR 1.34 (0.83-1.09) H 09/09/19 15:23 Assessment/Plan LEUKOCYTOSIS HX +BC STAPH SP VANCOMYCIN LEVEL NOTED HOLD VANCOMYCIN RANDOM LEVEL AM
[2019-09-16] MEDS ORDERED: PIPERACILLIN/TAZOBACTAM 3.375 GM VIAL IVPB ONE ×2 (00:56→09:43)
[2019-09-16] MEDS ORDERED: DEXTROSE 5%-WATER - 50 ML IVPB ONE ×2 (00:57→09:43)
[2019-09-16] MEDS: PIPERACILLIN/TAZOB 3.375 GM 3.375 GM in DEXTROSE 5%-WATER - 50 ML IVPB SCH ×2 (01:03→10:04)
[2019-09-16] MEDS: LEVOTHYROXINE NA 25 MCG TABLET (FP) PO SCH (06:36)
[2019-09-16] MEDS: metFORMIN HCL 500 MG TABLET (FP) PO SCH (06:36)
[2019-09-16] MEDS: INSULIN SLIDING SCALE (NOVOLOG) 1 VIAL SQ SCH ×4 (06:36→22:32)
[2019-09-16] MEDS: FERROUS SO4 325 MG TABLET (FP) PO SCH (10:04)
[2019-09-16] MEDS: MEMANTINE HCL 5 MG TABLET (UD) PO SCH (10:04)
[2019-09-16] MEDS: METOPROLOL TARTRATE 50 MG TABLET (FP) PO SCH ×2 (10:04→21:20)
[2019-09-16] MEDS: AMINO ACIDS/PROTEIN HYDROLYS 30 ML LIQUID.PKT PO SCH ×2 (10:04→17:33)
[2019-09-16] MEDS: predniSONE 20 MG TABLET (UD) PO SCH (10:05)
[2019-09-16] MEDS: FUROSEMIDE 40 MG/4 ML INJECTABLE VIAL IVPUSH SCH (10:05)
--- NOTE | 2019-09-16 10:54 | PN ---
Progress Note, Physician History of Present Illness: PULMONARY ALERT,COMFORTABLE,-C/O SOB - Current Medication List Current Medications: Active Medications Acetaminophen (Tylenol -) 650 mg PO Q6H PRN PRN Reason: FEVER Last Admin: 09/13/19 06:32 Dose: 650 mg Documented by: Amino Acids (Prosource No Carb Liquid Pkt) 30 ml PO BID@0800,1730 [facility] Last Admin: 09/16/19 10:04 Dose: 30 ml Documented by: Atorvastatin Calcium (Lipitor -) 20 mg PO HS [facility] Last Admin: 09/15/19 21:49 Dose: 20 mg Documented by: Diltiazem HCl (Cardizem Cd -) 240 mg PO DAILY [facility] Last Admin: 09/16/19 10:04 Dose: 240 mg Documented by: Ferrous Sulfate (Feosol -) 325 mg PO DAILY [facility] Last Admin: 09/16/19 10:04 Dose: 325 mg Documented by: Furosemide (Lasix Injection -) 40 mg IVPUSH DAILY [facility] Last Admin: 09/16/19 10:05 Dose: 40 mg Documented by: Piperacillin Sod/Tazobactam (Sod 3.375 gm/ Dextrose) 50 mls @ 100 mls/hr IVPB Q8H-IV [facility]; Protocol Last Admin: 09/16/19 10:04 Dose: 100 mls/hr Documented by: Insulin Aspart (Novolog Vial Sliding Scale -) 1 vial SQ ACHS [facility]; Protocol Last Admin: 09/16/19 06:36 Dose: Not Given Documented by: Levothyroxine Sodium (Synthroid -) 25 mcg PO ACBK [facility] Last Admin: 09/16/19 06:36 Dose: 25 mcg Documented by: Memantine (Namenda -) 5 mg PO DAILY [facility] Last Admin: 09/16/19 10:04 Dose: 5 mg Documented by: Metformin HCl (Glucophage -) 500 mg PO ACBK [facility] Last Admin: 09/16/19 06:36 Dose: 500 mg Documented by: Metoprolol Tartrate (Lopressor -) 50 mg PO BID [facility] Last Admin: 09/16/19 10:04 Dose: 50 mg Documented by: Prednisone (Deltasone -) 60 mg PO DAILY [facility] Last Admin: 09/16/19 10:05 Dose: 60 mg Documented by: Rivaroxaban (Xarelto) 20 mg PO DAILY@1800 [facility] Last Admin: 09/15/19 18:01 Dose: 20 mg Documented by: - Objective Vital Signs: Vital Signs Temperature 98 F 09/16/19 05:00 Pulse Rate 54 L 09/16/19 05:00 Respiratory Rate 18 09/16/19 05:00 Blood Pressure 142/72 09/16/19 05:00 O2 Sat by Pulse Oximetry (%) 96 09/15/19 21:00 Constitutional: Yes: Well Nourished, Calm Eyes: Yes: WNL HENT: Yes: WNL Neck: Yes: WNL Cardiovascular: Yes: Regular Rate and Rhythm, S1, S2 Respiratory: Yes: Wheezes (SCATTERED ANN MARIE WHEEZES) Gastrointestinal: Yes: Normal Bowel Sounds, Soft Extremities: Yes: WNL Edema: No Labs: Assessment/Plan Problem List - Problems (1) COPD (chronic obstructive pulmonary disease) Code(s): J44.9 - CHRONIC OBSTRUCTIVE PULMONARY DISEASE, UNSPECIFIED (2) CHF (congestive heart failure) Code(s): I50.9 - HEART FAILURE, UNSPECIFIED (3) Dementia Code(s): F03.90 - UNSPECIFIED DEMENTIA WITHOUT BEHAVIORAL DISTURBANCE (4) Anemia Code(s): D64.9 - ANEMIA, UNSPECIFIED (5) Asthma Code(s): J45.909 - UNSPECIFIED ASTHMA, UNCOMPLICATED (6) Diabetes Code(s): E11.9 - TYPE 2 DIABETES MELLITUS WITHOUT COMPLICATIONS (7) HTN (hypertension) Code(s): I10 - ESSENTIAL (PRIMARY) HYPERTENSION (8) History of colon cancer Code(s): Z85.038 - PERSONAL HISTORY OF MALIGNANT NEOPLASM OF LARGE INTESTINE (9) Hypothyroid Code(s): E03.9 - HYPOTHYROIDISM, UNSPECIFIED (10) RBBB Code(s): I45.10 - UNSPECIFIED RIGHT BUNDLE-BRANCH BLOCK Assessment/Plan Prednisone BD TX Standing and PRN Supplemental O2 as needed Rate control AC Monitor cbc DR TINSLEY Problem List - Problems (1) COPD (chronic obstructive pulmonary disease) Code(s): J44.9 - CHRONIC OBSTRUCTIVE PULMONARY DISEASE, UNSPECIFIED (2) CHF (congestive heart failure) Code(s): I50.9 - HEART FAILURE, UNSPECIFIED (3) Dementia Code(s): F03.90 - UNSPECIFIED DEMENTIA WITHOUT BEHAVIORAL DISTURBANCE (4) Anemia Code(s): D64.9 - ANEMIA, UNSPECIFIED (5) Asthma Code(s): J45.909 - UNSPECIFIED ASTHMA, UNCOMPLICATED (6) Diabetes Code(s): E11.9 - TYPE 2 DIABETES MELLITUS WITHOUT COMPLICATIONS (7) HTN (hypertension) Code(s): I10 - ESSENTIAL (PRIMARY) HYPERTENSION (8) History of colon cancer Code(s): Z85.038 - PERSONAL HISTORY OF MALIGNANT NEOPLASM OF LARGE INTESTINE (9) Hypothyroid Code(s): E03.9 - HYPOTHYROIDISM, UNSPECIFIED (10) RBBB Code(s): I45.10 - UNSPECIFIED RIGHT BUNDLE-BRANCH BLOCK
[2019-09-16] MEDS ORDERED: DIPHENOXYLATE 2.5/ATROPINE.025 1 COMBO TABLET PO PRN (13:11)
--- NOTE | 2019-09-16 13:12 | PN ---
Progress Note, Physician Chief Complaint: AWAKE NAD STILL WITH DIARRHEA NON-BLOODY COMPLETED ABX - Current Medication List Current Medications: Active Medications Acetaminophen (Tylenol -) 650 mg PO Q6H PRN PRN Reason: FEVER Last Admin: 09/13/19 06:32 Dose: 650 mg Documented by: Amino Acids (Prosource No Carb Liquid Pkt) 30 ml PO BID@0800,1730 [facility] Last Admin: 09/16/19 10:04 Dose: 30 ml Documented by: Atorvastatin Calcium (Lipitor -) 20 mg PO HS [facility] Last Admin: 09/15/19 21:49 Dose: 20 mg Documented by: Diltiazem HCl (Cardizem Cd -) 240 mg PO DAILY [facility] Last Admin: 09/16/19 10:04 Dose: 240 mg Documented by: Ferrous Sulfate (Feosol -) 325 mg PO DAILY [facility] Last Admin: 09/16/19 10:04 Dose: 325 mg Documented by: Furosemide (Lasix Injection -) 40 mg IVPUSH DAILY [facility] Last Admin: 09/16/19 10:05 Dose: 40 mg Documented by: Piperacillin Sod/Tazobactam (Sod 3.375 gm/ Dextrose) 50 mls @ 100 mls/hr IVPB Q8H-IV [facility]; Protocol Last Admin: 09/16/19 10:04 Dose: 100 mls/hr Documented by: Potassium Chloride (Potassium Chloride 10 Meq Premix Ivpb -) 10 meq in 100 mls @ 100 mls/hr IVPB Q60M [facility] Stop: 09/16/19 14:44 Insulin Aspart (Novolog Vial Sliding Scale -) 1 vial SQ ACHS [facility]; Protocol Last Admin: 09/16/19 12:11 Dose: Not Given Documented by: Levothyroxine Sodium (Synthroid -) 25 mcg PO ACBK [facility] Last Admin: 09/16/19 06:36 Dose: 25 mcg Documented by: Magnesium Sulfate (Magnesium Sulfate) 2 gm IVPB ONCE ONE Stop: 09/16/19 13:16 Memantine (Namenda -) 5 mg PO DAILY [facility] Last Admin: 09/16/19 10:04 Dose: 5 mg Documented by: Metformin HCl (Glucophage -) 500 mg PO ACBK [facility] Last Admin: 09/16/19 06:36 Dose: 500 mg Documented by: Metoprolol Tartrate (Lopressor -) 50 mg PO BID [facility] Last Admin: 09/16/19 10:04 Dose: 50 mg Documented by: Potassium Chloride (K-Dur -) 40 meq PO ONCE ONE Stop: 09/16/19 13:11 Potassium Chloride (K-Dur -) 20 meq PO DAILY [facility] Prednisone (Deltasone -) 60 mg PO DAILY [facility] Last Admin: 09/16/19 10:05 Dose: 60 mg Documented by: Rivaroxaban (Xarelto) 20 mg PO DAILY@1800 [facility] Last Admin: 09/15/19 18:01 Dose: 20 mg Documented by: - Objective Vital Signs: Vital Signs Temperature 98 F 09/16/19 09:00 Pulse Rate 60 09/16/19 09:00 Respiratory Rate 18 09/16/19 09:00 Blood Pressure 133/71 09/16/19 09:00 O2 Sat by Pulse Oximetry (%) 97 09/16/19 09:00 Constitutional: Yes: Mild Distress Cardiovascular: Yes: Regular Rate and Rhythm Respiratory: Yes: CTA Bilaterally Gastrointestinal: Yes: Soft Genitourinary: Yes: Incontinence Musculoskeletal: Yes: Muscle Weakness Edema: Yes Integumentary: Yes: Venous Stasis Changes Neurological: Yes: Pre-Existing Deficit ...Motor Strength: LLE, RLE Labs: CBC, BMP 09/15/19 11:22 09/15/19 11:22 INR, PTT INR 1.34 (0.83-1.09) H 09/09/19 15:23 Problem List - Problems (1) CHF (congestive heart failure) Code(s): I50.9 - HEART FAILURE, UNSPECIFIED (2) Dementia Code(s): F03.90 - UNSPECIFIED DEMENTIA WITHOUT BEHAVIORAL DISTURBANCE (3) Rapid atrial fibrillation Code(s): I48.91 - UNSPECIFIED ATRIAL FIBRILLATION (4) Sepsis Code(s): A41.9 - SEPSIS, UNSPECIFIED ORGANISM (5) Anemia Code(s): D64.9 - ANEMIA, UNSPECIFIED (6) Asthma Code(s): J45.909 - UNSPECIFIED ASTHMA, UNCOMPLICATED (7) Diabetes Code(s): E11.9 - TYPE 2 DIABETES MELLITUS WITHOUT COMPLICATIONS (8) HTN (hypertension) Code(s): I10 - ESSENTIAL (PRIMARY) HYPERTENSION (9) History of colon cancer Code(s): Z85.038 - PERSONAL HISTORY OF MALIGNANT NEOPLASM OF LARGE INTESTINE (10) Hypothyroid Code(s): E03.9 - HYPOTHYROIDISM, UNSPECIFIED (11) RBBB Code(s): I45.10 - UNSPECIFIED RIGHT BUNDLE-BRANCH BLOCK Assessment/Plan LEUKOCYTOSIS PERSISTS ON IV ABX FOR GRAM + COCCI IN [facility] AT [facility] STARTED ON ZOSYN AND VANCO WITH PICC LINE ZOSYN STARTED 08/25 -09/06 VANCO 09/01-09/06 ADMITTED Aug HERE AT [facility] BLOOD CULTURES NEGATIVE ONCOLOGY CONSULT DR TORRES PERSISTENT LEUKOCYTOSIS R/O MDS WILL D/W DR BRAVO FROM ID DVT PROPHYLAXIS ANTIBIOTICS ARE JAELYN COMPLETED DIARRHEA WORSE CDIFF NEGATIVE LOMITIL STARTED REPLETE KCL/MAGNESIUM IVF FOR AZOTEMIA
[2019-09-16] MEDS ORDERED: predniSONE 20 MG TABLET (UD) PO SCH (13:13)
[2019-09-16] MEDS ORDERED: MAGNESIUM SULF 50% (8.12 MEQ/2 ML-1 GM VIAL) IVPB ONE (13:15)
[2019-09-16] MEDS ORDERED: POTASSIUM CHLORIDE TABS 10 MEQ TABLET.ER (FP) PO ONE ×2 (13:30→16:00)
[2019-09-16] MEDS ORDERED: POTASSIUM CHLORIDE TABS 20 MEQ TABLET.ER (FP) PO ONE (13:30)
[2019-09-16] MEDS ORDERED: KCL 10 MEQ IVPB 10 MEQ/100 ML INFUS.BAG IVPB SCH ×2 (13:45→15:15)
[2019-09-16 14:23] LABS: BLOOD UREA NITROGEN 47.3 mg/dL (7-18); CALCIUM 7.7 mg/dL (8.5-10.1); CREATININE 1.5 mg/dL (0.55-1.3); MAGNESIUM 1.8 mg/dL (1.8-2.4); POTASSIUM 3.1 mmol/L (3.5-5.1)
--- NOTE | 2019-09-16 15:29 | PN ---
Progress Note, Physician History of Present Illness: AWAKE, ALERT IN BED PLEASANTLY CONFUSED OFFERS NO COMPLAINTS NON TOXIC APPEARING AFEBRILE - Current Medication List Current Medications: Active Medications Acetaminophen (Tylenol -) 650 mg PO Q6H PRN PRN Reason: FEVER Last Admin: 09/13/19 06:32 Dose: 650 mg Documented by: Amino Acids (Prosource No Carb Liquid Pkt) 30 ml PO BID@0800,1730 [facility] Last Admin: 09/16/19 10:04 Dose: 30 ml Documented by: Atorvastatin Calcium (Lipitor -) 20 mg PO HS [facility] Last Admin: 09/15/19 21:49 Dose: 20 mg Documented by: Diltiazem HCl (Cardizem Cd -) 240 mg PO DAILY [facility] Last Admin: 09/16/19 10:04 Dose: 240 mg Documented by: Diphenoxylate HCl/Atropine (Lomotil -) 1 combo PO Q8H PRN PRN Reason: DIARRHEA Last Admin: 09/16/19 15:11 Dose: 1 combo Documented by: Ferrous Sulfate (Feosol -) 325 mg PO DAILY [facility] Last Admin: 09/16/19 10:04 Dose: 325 mg Documented by: Furosemide (Lasix Injection -) 40 mg IVPUSH DAILY [facility] Last Admin: 09/16/19 10:05 Dose: 40 mg Documented by: Piperacillin Sod/Tazobactam (Sod 3.375 gm/ Dextrose) 50 mls @ 100 mls/hr IVPB Q8H-IV [facility]; Protocol Last Admin: 09/16/19 10:04 Dose: 100 mls/hr Documented by: Potassium Chloride (Potassium Chloride 10 Meq Premix Ivpb -) 10 meq in 100 mls @ 100 mls/hr IVPB Q60M [facility] Stop: 09/16/19 16:14 Potassium Chloride 10 meq/ (Sodium Chloride) 1,005 mls @ 75 mls/hr IVPB ASDIR [facility] Insulin Aspart (Novolog Vial Sliding Scale -) 1 vial SQ ACHS [facility]; Protocol Last Admin: 09/16/19 12:11 Dose: Not Given Documented by: Levothyroxine Sodium (Synthroid -) 25 mcg PO ACBK [facility] Last Admin: 09/16/19 06:36 Dose: 25 mcg Documented by: Memantine (Namenda -) 5 mg PO DAILY [facility] Last Admin: 09/16/19 10:04 Dose: 5 mg Documented by: Metformin HCl (Glucophage -) 500 mg PO ACBK [facility] Last Admin: 09/16/19 06:36 Dose: 500 mg Documented by: Metoprolol Tartrate (Lopressor -) 50 mg PO BID [facility] Last Admin: 09/16/19 10:04 Dose: 50 mg Documented by: Potassium Chloride (K-Dur -) 20 meq PO DAILY [facility] Potassium Chloride (K-Dur -) 20 meq PO ONCE ONE Stop: 09/16/19 15:12 Prednisone (Deltasone -) 50 mg PO DAILY [facility] Rivaroxaban (Xarelto) 20 mg PO DAILY@1800 [facility] Last Admin: 09/15/19 18:01 Dose: 20 mg Documented by: - Objective Vital Signs: Vital Signs Temperature 98.2 F 09/16/19 14:00 Pulse Rate 65 09/16/19 14:00 Respiratory Rate 18 09/16/19 09:00 Blood Pressure 112/39 L 09/16/19 14:00 O2 Sat by Pulse Oximetry (%) 97 09/16/19 09:00 Constitutional: Yes: No Distress Eyes: Yes: Conjunctiva Clear Cardiovascular: Yes: Regular Rate and Rhythm, S1, S2 Respiratory: Yes: CTA Bilaterally Gastrointestinal: Yes: Normal Bowel Sounds, Soft. No: Tenderness Edema: No Labs: CBC, BMP 09/15/19 11:22 09/16/19 13:46 INR, PTT INR 1.34 (0.83-1.09) H 09/09/19 15:23 Assessment/Plan LEUKOCYTOSIS HX +BC SCN ? SIGNIFICANCE D/C ANTIBIOTICS, OBSERVE OFF HEMATOLOGY EVALUATION FOR PERSISTANT LEUKOCYTOSIS
[2019-09-16] MEDS: POTASSIUM CHLORIDE 10 MEQ in SODIUM CHLORIDE 1,000 ML IVPB SCH (17:34)
[2019-09-16] MEDS: RIVAROXABAN 20 MG TABLET PO SCH (17:34)
[2019-09-16 21:17] VITALS: BMI 26.2
[2019-09-16] MEDS: ATORVASTATIN CA 20 MG TABLET (FP) PO SCH (21:20)
[2019-09-17] MEDS: POTASSIUM CHLORIDE 10 MEQ in SODIUM CHLORIDE 1,000 ML IVPB SCH ×2 (05:53→22:08)
[2019-09-17] MEDS: LEVOTHYROXINE NA 25 MCG TABLET (FP) PO SCH (06:40)
[2019-09-17] MEDS: metFORMIN HCL 500 MG TABLET (FP) PO SCH (06:40)
[2019-09-17] MEDS: INSULIN SLIDING SCALE (NOVOLOG) 1 VIAL SQ SCH ×4 (06:42→22:13)
[2019-09-17 08:04] LABS: BLOOD UREA NITROGEN 50.4 mg/dL (7-18); CALCIUM 7.7 mg/dL (8.5-10.1); CREATININE 1.3 mg/dL (0.55-1.3); MAGNESIUM 1.6 mg/dL (1.8-2.4); POTASSIUM 3.8 mmol/L (3.5-5.1)
[2019-09-17 09:05] LABS: HEMATOCRIT 39.9 % (32.4-45.2); HEMOGLOBIN 12.8 GM/dL (10.7-15.3); MCH 27.8 pg (25.7-33.7); MCHC 32.1 g/dl (32.0-36.0); MEAN CELL VOLUME 86.6 fl (80-96); MEAN PLT VOLUME 8.9 fl (7.5-11.1); PLATELET COUNT 343 K/MM3 (134-434); RBC 4.61 M/mm3 (3.60-5.2); RDW 16.7 % (11.6-15.6); WHITE BLOOD COUNT 18.8 K/mm3 (4.0-10.0)
[2019-09-17] MEDS: AMINO ACIDS/PROTEIN HYDROLYS 30 ML LIQUID.PKT PO SCH ×2 (09:15→16:30)
[2019-09-17] MEDS: FERROUS SO4 325 MG TABLET (FP) PO SCH (09:15)
[2019-09-17] MEDS: METOPROLOL TARTRATE 50 MG TABLET (FP) PO SCH ×2 (09:16→22:11)
[2019-09-17] MEDS: POTASSIUM CHLORIDE TABS 20 MEQ TABLET.ER (FP) PO SCH (09:16)
[2019-09-17] MEDS: FUROSEMIDE 40 MG/4 ML INJECTABLE VIAL IVPUSH SCH (09:16)
[2019-09-17] MEDS: MEMANTINE HCL 5 MG TABLET (UD) PO SCH (09:16)
--- NOTE | 2019-09-17 10:05 | PN ---
Progress Note, Physician - Current Medication List Current Medications: Active Medications Acetaminophen (Tylenol -) 650 mg PO Q6H PRN PRN Reason: FEVER Last Admin: 09/13/19 06:32 Dose: 650 mg Documented by: Amino Acids (Prosource No Carb Liquid Pkt) 30 ml PO BID@0800,1730 [facility] Last Admin: 09/17/19 09:15 Dose: 30 ml Documented by: Atorvastatin Calcium (Lipitor -) 20 mg PO HS [facility] Last Admin: 09/16/19 21:20 Dose: 20 mg Documented by: Diltiazem HCl (Cardizem Cd -) 240 mg PO DAILY [facility] Last Admin: 09/17/19 09:16 Dose: 240 mg Documented by: Diphenoxylate HCl/Atropine (Lomotil -) 1 combo PO Q8H PRN PRN Reason: DIARRHEA Last Admin: 09/16/19 15:11 Dose: 1 combo Documented by: Ferrous Sulfate (Feosol -) 325 mg PO DAILY [facility] Last Admin: 09/17/19 09:15 Dose: 325 mg Documented by: Furosemide (Lasix Injection -) 40 mg IVPUSH DAILY [facility] Last Admin: 09/17/19 09:16 Dose: 40 mg Documented by: Potassium Chloride 10 meq/ (Sodium Chloride) 1,005 mls @ 75 mls/hr IVPB Q13H [facility] Last Admin: 09/17/19 05:53 Dose: Not Given Documented by: Insulin Aspart (Novolog Vial Sliding Scale -) 1 vial SQ [facility]; Protocol Last Admin: 09/17/19 06:42 Dose: 2 units Documented by: Levothyroxine Sodium (Synthroid -) 25 mcg PO ACBK [facility] Last Admin: 09/17/19 06:40 Dose: 25 mcg Documented by: Memantine (Namenda -) 5 mg PO DAILY [facility] Last Admin: 09/17/19 09:16 Dose: 5 mg Documented by: Metformin HCl (Glucophage -) 500 mg PO ACBK [facility] Last Admin: 09/17/19 06:40 Dose: 500 mg Documented by: Metoprolol Tartrate (Lopressor -) 50 mg PO BID [facility] Last Admin: 09/17/19 09:16 Dose: 50 mg Documented by: Potassium Chloride (K-Dur -) 20 meq PO DAILY [facility] Last Admin: 09/17/19 09:16 Dose: 20 meq Documented by: Prednisone (Deltasone -) 50 mg PO DAILY [facility] Last Admin: 09/17/19 09:15 Dose: 50 mg Documented by: Rivaroxaban (Xarelto) 20 mg PO DAILY@1800 [facility] Last Admin: 09/16/19 17:34 Dose: 20 mg Documented by: - Objective Vital Signs: Vital Signs Temperature 97.4 F L 09/17/19 05:00 Pulse Rate 63 09/17/19 05:00 Respiratory Rate 20 09/17/19 08:26 Blood Pressure 149/72 09/17/19 05:00 O2 Sat by Pulse Oximetry (%) 94 L 09/17/19 08:26 Cardiovascular: Yes: S1, S2 Respiratory: Yes: Regular, CTA Bilaterally Gastrointestinal: Yes: Normal Bowel Sounds, Soft Labs: CBC, BMP 09/17/19 06:18 09/17/19 06:18 INR, PTT INR 1.34 (0.83-1.09) H 09/09/19 15:23 Problem List - Problems (1) Bacteremia Assessment/Plan: Microbiology NOTED AT [place] ID ON BOARD IV ABX 09/09/19 15:10 Blood - Peripheral Venous Blood Culture - Final NO GROWTH AFTER 5 DAYS INCUBATION 09/09/19 15:10 Blood - Peripheral Venous Blood Culture - Final NO GROWTH AFTER 5 DAYS INCUBATION 09/10/19 18:30 Wound-Other Gram Stain - Final 09/10/19 18:30 Wound-Other Wound Culture - Final NO GROWTH AFTER 48 HOURS INCUBATION 09/11/19 11:10 Stool Clostridioides difficile Antigen - Final 09/11/19 11:10 Stool Clostridioides difficile Toxin Assay - Final 09/09/19 15:50 Urine - Urine - Catheterized Urine Culture - Final NO GROWTH OBTAINED Code(s): R78.81 - BACTEREMIA (2) COPD (chronic obstructive pulmonary disease) Assessment/Plan: STABLE PULM CONSULT Code(s): J44.9 - CHRONIC OBSTRUCTIVE PULMONARY DISEASE, UNSPECIFIED (3) Dementia Code(s): F03.90 - UNSPECIFIED DEMENTIA WITHOUT BEHAVIORAL DISTURBANCE (4) Leukocytosis Assessment/Plan: Laboratory Tests 09/13/19 09/15/19 09/17/19 05:45 11:22 06:18 WBC 21.3 H 24.7 H 18.8 H ID AND HEM ON BOARD Code(s): D72.829 - ELEVATED WHITE BLOOD CELL COUNT, UNSPECIFIED (5) Electrolyte abnormality Assessment/Plan: REPLACE Code(s): E87.8 - OTH DISORDERS OF ELECTROLYTE AND FLUID BALANCE, NEC (6) Afib Assessment/Plan: CARDIO ON BOARD Increase metoprolol to 50 mg BID Continue diltiazem 240mg PO daily. Digoxin was discontinued. ON XARELTO Code(s): I48.91 - UNSPECIFIED ATRIAL FIBRILLATION
[2019-09-17] MEDS ORDERED: MAGNESIUM SULF 50% (8.12 MEQ/2 ML-1 GM VIAL) IVPB ONE (10:45)
--- NOTE | 2019-09-17 11:24 | PN ---
Progress Note (short form) - Note Progress Note: PULMONARY SENT FROM [facility] DUE TO RAPID AF vss/afebrile Constitutional: Yes: Well Nourished, Calm Eyes: Yes: WNL HENT: Yes: WNL Neck: Yes: WNL Cardiovascular: Yes: Regular Rate and Rhythm, S1, S2 Respiratory: Yes: End exp wheezes Gastrointestinal: Yes: Normal Bowel Sounds, Soft Extremities: Yes: WNL Edema: No CXR reviewed Labs: noted (1) COPD (chronic obstructive pulmonary disease) Code(s): J44.9 - CHRONIC OBSTRUCTIVE PULMONARY DISEASE, UNSPECIFIED (2) CHF (congestive heart failure) Code(s): I50.9 - HEART FAILURE, UNSPECIFIED (3) Dementia Code(s): F03.90 - UNSPECIFIED DEMENTIA WITHOUT BEHAVIORAL DISTURBANCE (4) Anemia Code(s): D64.9 - ANEMIA, UNSPECIFIED (5) Asthma Code(s): J45.909 - UNSPECIFIED ASTHMA, UNCOMPLICATED (6) Diabetes Code(s): E11.9 - TYPE 2 DIABETES MELLITUS WITHOUT COMPLICATIONS (7) HTN (hypertension) Code(s): I10 - ESSENTIAL (PRIMARY) HYPERTENSION (8) History of colon cancer Code(s): Z85.038 - PERSONAL HISTORY OF MALIGNANT NEOPLASM OF LARGE INTESTINE (9) Hypothyroid Code(s): E03.9 - HYPOTHYROIDISM, UNSPECIFIED (10) RBBB Code(s): I45.10 - UNSPECIFIED RIGHT BUNDLE-BRANCH BLOCK Assessment/Plan Prednisone to taper BD TX Standing and PRN Supplemental O2 as needed Rate control REY LIMA MD
[2019-09-17] MEDS: RIVAROXABAN 20 MG TABLET PO SCH (17:32)
[2019-09-17] MEDS: ATORVASTATIN CA 20 MG TABLET (FP) PO SCH (22:11)
[2019-09-18] MEDS: metFORMIN HCL 500 MG TABLET (FP) PO SCH (06:26)
[2019-09-18] MEDS: LEVOTHYROXINE NA 25 MCG TABLET (FP) PO SCH (06:26)
[2019-09-18] MEDS: INSULIN SLIDING SCALE (NOVOLOG) 1 VIAL SQ SCH ×4 (06:27→22:12)
[2019-09-18 07:55] LABS: BASO % 0.1 % (0-2.0); HEMATOCRIT 38.6 % (32.4-45.2); HEMOGLOBIN 12.4 GM/dL (10.7-15.3); LYMPH % 4.3 % (8-40); MCH 28.2 pg (25.7-33.7); MCHC 32.3 g/dl (32.0-36.0); MEAN CELL VOLUME 87.3 fl (80-96); MEAN PLT VOLUME 8.6 fl (7.5-11.1); MONO % 4.6 % (3.8-10.2); PLATELET COUNT 356 K/MM3 (134-434); RBC 4.42 M/mm3 (3.60-5.2); RDW 16.9 % (11.6-15.6); WHITE BLOOD COUNT 19.1 K/mm3 (4.0-10.0)
[2019-09-18 08:23] LABS: ALBUMIN 2.9 g/dl (3.4-5.0); BILIRUBIN,TOTAL 0.5 mg/dL (0.2-1); BLOOD UREA NITROGEN 42.1 mg/dL (7-18); CALCIUM 7.6 mg/dL (8.5-10.1); CREATININE 1.2 mg/dL (0.55-1.3); MAGNESIUM 1.9 mg/dL (1.8-2.4); POTASSIUM 4.2 mmol/L (3.5-5.1); TOT PROT 6.2 g/dl (6.4-8.2)
[2019-09-18] MEDS: MEMANTINE HCL 5 MG TABLET (UD) PO SCH (09:04)
[2019-09-18] MEDS: POTASSIUM CHLORIDE TABS 20 MEQ TABLET.ER (FP) PO SCH (09:04)
[2019-09-18] MEDS: AMINO ACIDS/PROTEIN HYDROLYS 30 ML LIQUID.PKT PO SCH ×2 (09:04→17:07)
[2019-09-18] MEDS: METOPROLOL TARTRATE 50 MG TABLET (FP) PO SCH ×2 (09:04→22:12)
[2019-09-18] MEDS: predniSONE 20 MG TABLET (UD) PO SCH (09:04)
[2019-09-18] MEDS: FERROUS SO4 325 MG TABLET (FP) PO SCH (09:04)
[2019-09-18] MEDS: POTASSIUM CHLORIDE 10 MEQ in SODIUM CHLORIDE 1,000 ML IVPB SCH (09:05)
[2019-09-18] MEDS: FUROSEMIDE 40 MG/4 ML INJECTABLE VIAL IVPUSH SCH (09:05)
[2019-09-18 10:32] LABS: ANISOCYTOSIS 1+; MACROCYTOSIS 0; OVALOCYTE 1+; PLATELET ESTIMATE NORMAL; TOXIC GRANULATION 1+
--- NOTE | 2019-09-18 11:22 | PN ---
Progress Note, Physician - Current Medication List Current Medications: Active Medications Acetaminophen (Tylenol -) 650 mg PO Q6H PRN PRN Reason: FEVER Last Admin: 09/13/19 06:32 Dose: 650 mg Documented by: Amino Acids (Prosource No Carb Liquid Pkt) 30 ml PO BID@0800,1730 [facility] Last Admin: 09/18/19 09:04 Dose: 30 ml Documented by: Atorvastatin Calcium (Lipitor -) 20 mg PO HS [facility] Last Admin: 09/17/19 22:11 Dose: 20 mg Documented by: Diltiazem HCl (Cardizem Cd -) 240 mg PO DAILY [facility] Last Admin: 09/18/19 09:04 Dose: 240 mg Documented by: Diphenoxylate HCl/Atropine (Lomotil -) 1 combo PO Q8H PRN PRN Reason: DIARRHEA Last Admin: 09/16/19 15:11 Dose: 1 combo Documented by: Ferrous Sulfate (Feosol -) 325 mg PO DAILY [facility] Last Admin: 09/18/19 09:04 Dose: 325 mg Documented by: Furosemide (Lasix Injection -) 40 mg IVPUSH DAILY [facility] Last Admin: 09/18/19 09:05 Dose: 40 mg Documented by: Potassium Chloride 10 meq/ (Sodium Chloride) 1,005 mls @ 75 mls/hr IVPB Q13H [facility] Last Admin: 09/18/19 09:05 Dose: Not Given Documented by: Insulin Aspart (Novolog Vial Sliding Scale -) 1 vial SQ [facility]; Protocol Last Admin: 09/18/19 06:27 Dose: 2 units Documented by: Levothyroxine Sodium (Synthroid -) 25 mcg PO ACBK [facility] Last Admin: 09/18/19 06:26 Dose: 25 mcg Documented by: Memantine (Namenda -) 5 mg PO DAILY [facility] Last Admin: 09/18/19 09:04 Dose: 5 mg Documented by: Metformin HCl (Glucophage -) 500 mg PO ACBK [facility] Last Admin: 09/18/19 06:26 Dose: 500 mg Documented by: Metoprolol Tartrate (Lopressor -) 50 mg PO BID [facility] Last Admin: 09/18/19 09:04 Dose: 50 mg Documented by: Potassium Chloride (K-Dur -) 20 meq PO DAILY [facility] Last Admin: 09/18/19 09:04 Dose: 20 meq Documented by: Prednisone (Deltasone -) 40 mg PO DAILY [facility] Last Admin: 09/18/19 09:04 Dose: 40 mg Documented by: Rivaroxaban (Xarelto) 20 mg PO DAILY@1800 [facility] Last Admin: 09/17/19 17:32 Dose: 20 mg Documented by: - Objective Vital Signs: Vital Signs Temperature 98.0 F 09/18/19 07:53 Pulse Rate 62 09/18/19 07:53 Respiratory Rate 18 09/18/19 07:53 Blood Pressure 142/68 09/18/19 07:53 O2 Sat by Pulse Oximetry (%) 96 09/18/19 07:53 Cardiovascular: Yes: S1, S2 Respiratory: Yes: Regular, CTA Bilaterally Gastrointestinal: Yes: Normal Bowel Sounds, Soft Labs: CBC, BMP 09/18/19 06:25 09/18/19 06:25 INR, PTT INR 1.34 (0.83-1.09) H 09/09/19 15:23 Problem List - Problems (1) Bacteremia Assessment/Plan: Microbiology NOTED AT [place] ID ON BOARD IV ABX Microbiology 09/09/19 15:10 Blood - Peripheral Venous Blood Culture - Final NO GROWTH AFTER 5 DAYS INCUBATION 09/09/19 15:10 Blood - Peripheral Venous Blood Culture - Final NO GROWTH AFTER 5 DAYS INCUBATION 09/10/19 18:30 Wound-Other Gram Stain - Final 09/10/19 18:30 Wound-Other Wound Culture - Final NO GROWTH AFTER 48 HOURS INCUBATION 09/11/19 11:10 Stool Clostridioides difficile Antigen - Final 09/11/19 11:10 Stool Clostridioides difficile Toxin Assay - Final 09/09/19 15:50 Urine - Urine - Catheterized Urine Culture - Final NO GROWTH OBTAINED Code(s): R78.81 - BACTEREMIA (2) COPD (chronic obstructive pulmonary disease) Assessment/Plan: STABLE PULM CONSULT Code(s): J44.9 - CHRONIC OBSTRUCTIVE PULMONARY DISEASE, UNSPECIFIED (3) Dementia Code(s): F03.90 - UNSPECIFIED DEMENTIA WITHOUT BEHAVIORAL DISTURBANCE (4) Leukocytosis Assessment/Plan: Laboratory Tests 09/15/19 09/17/19 09/18/19 11:22 06:18 06:25 WBC 24.7 H 18.8 H 19.1 H ID AND HEM ON BOARD Code(s): D72.829 - ELEVATED WHITE BLOOD CELL COUNT, UNSPECIFIED (5) Electrolyte abnormality Assessment/Plan: REPLACE Code(s): E87.8 - OTH DISORDERS OF ELECTROLYTE AND FLUID BALANCE, NEC (6) Afib Assessment/Plan: CARDIO ON BOARD Increase metoprolol to 50 mg BID Continue diltiazem 240mg PO daily. Digoxin was discontinued. ON XARELTO Code(s): I48.91 - UNSPECIFIED ATRIAL FIBRILLATION (7) Lytic lesion of bone on x-ray Assessment/Plan: BONE SCAN Code(s): M89.9 - DISORDER OF BONE, UNSPECIFIED
--- NOTE | 2019-09-18 12:20 | PN ---
Progress Note (short form) - Note Progress Note: PULMONARY SENT FROM [facility] DUE TO RAPID AF vss/afebrile/rate controlled Constitutional: Yes: Well Nourished, Calm Eyes: Yes: WNL HENT: Yes: WNL Neck: Yes: WNL Cardiovascular: Yes: Regular Rate and Rhythm, S1, S2 Respiratory: Yes: End exp wheezes Gastrointestinal: Yes: Normal Bowel Sounds, Soft Extremities: Yes: WNL Edema: No CXR reviewed Labs: noted (1) COPD (chronic obstructive pulmonary disease) Code(s): J44.9 - CHRONIC OBSTRUCTIVE PULMONARY DISEASE, UNSPECIFIED (2) CHF (congestive heart failure) Code(s): I50.9 - HEART FAILURE, UNSPECIFIED (3) Dementia Code(s): F03.90 - UNSPECIFIED DEMENTIA WITHOUT BEHAVIORAL DISTURBANCE (4) Anemia Code(s): D64.9 - ANEMIA, UNSPECIFIED (5) Asthma Code(s): J45.909 - UNSPECIFIED ASTHMA, UNCOMPLICATED (6) Diabetes Code(s): E11.9 - TYPE 2 DIABETES MELLITUS WITHOUT COMPLICATIONS (7) HTN (hypertension) Code(s): I10 - ESSENTIAL (PRIMARY) HYPERTENSION (8) History of colon cancer Code(s): Z85.038 - PERSONAL HISTORY OF MALIGNANT NEOPLASM OF LARGE INTESTINE (9) Hypothyroid Code(s): E03.9 - HYPOTHYROIDISM, UNSPECIFIED (10) RBBB Code(s): I45.10 - UNSPECIFIED RIGHT BUNDLE-BRANCH BLOCK Assessment/Plan Prednisone to taper BD TX Standing and PRN Supplemental O2 as needed Rate control REY LIMA MD
[2019-09-18] MEDS: RIVAROXABAN 20 MG TABLET PO SCH (17:07)
[2019-09-18] MEDS: PANTOPRAZOLE 40 MG TABLET PO SCH (17:07)
[2019-09-18] MEDS: ATORVASTATIN CA 20 MG TABLET (FP) PO SCH (22:11)
[2019-09-19 06:55] LABS: BASO % 0.1 % (0-2.0); EOS % 0.1 % (0-4.5); HEMATOCRIT 40.1 % (32.4-45.2); HEMOGLOBIN 12.9 GM/dL (10.7-15.3); LYMPH % 7.1 % (8-40); MCHC 32.1 g/dl (32.0-36.0); MEAN CELL VOLUME 87.2 fl (80-96); MEAN PLT VOLUME 8.4 fl (7.5-11.1); NEUT % 85.7 % (42.8-82.8); PLATELET COUNT 355 K/MM3 (134-434); RDW 16.9 % (11.6-15.6); WHITE BLOOD COUNT 21.5 K/mm3 (4.0-10.0)
[2019-09-19] MEDS: INSULIN SLIDING SCALE (NOVOLOG) 1 VIAL SQ SCH ×4 (07:12→22:00)
[2019-09-19] MEDS: LEVOTHYROXINE NA 25 MCG TABLET (FP) PO SCH (07:12)
[2019-09-19] MEDS: metFORMIN HCL 500 MG TABLET (FP) PO SCH (07:12)
[2019-09-19 07:32] LABS: BILIRUBIN,TOTAL 0.6 mg/dL (0.2-1); BLOOD UREA NITROGEN 40.2 mg/dL (7-18); CALCIUM 8.1 mg/dL (8.5-10.1); CREATININE 1.2 mg/dL (0.55-1.3); POTASSIUM 4.5 mmol/L (3.5-5.1); TOT PROT 6.3 g/dl (6.4-8.2)
[2019-09-19] MEDS: AMINO ACIDS/PROTEIN HYDROLYS 30 ML LIQUID.PKT PO SCH ×2 (08:24→17:39)
[2019-09-19] MEDS: FERROUS SO4 325 MG TABLET (FP) PO SCH (09:24)
[2019-09-19] MEDS: predniSONE 20 MG TABLET (UD) PO SCH (09:24)
[2019-09-19] MEDS: POTASSIUM CHLORIDE TABS 20 MEQ TABLET.ER (FP) PO SCH (09:24)
[2019-09-19] MEDS: PANTOPRAZOLE 40 MG TABLET PO SCH (09:24)
[2019-09-19] MEDS: METOPROLOL TARTRATE 50 MG TABLET (FP) PO SCH ×2 (09:24→21:12)
[2019-09-19] MEDS: MEMANTINE HCL 5 MG TABLET (UD) PO SCH (09:24)
[2019-09-19] MEDS: FUROSEMIDE 40 MG/4 ML INJECTABLE VIAL IVPUSH SCH (09:25)
[2019-09-19 12:12] LABS: ANISOCYTOSIS 1+; MACROCYTOSIS 0; PLATELET ESTIMATE NORMAL; TEAR DROP CELLS 1+
--- NOTE | 2019-09-19 12:47 | PN ---
Progress Note (short form) - Note Progress Note: PULMONARY Denies shortness of breath, cough or wheezing. Vital Signs Period Temp Pulse Resp BP Sys/Reina Pulse Ox Last 24 Hr 97.8 F-98.2 F 53-59 20-20 142-166/68-93 95-96 Gen: NAD at rest Heart: RRR Lung: decreased breath sounds at the bases Abd: soft, nontender Ext: no edema CBC, BMP 09/19/19 06:05 09/19/19 06:00 Active Medications Acetaminophen (Tylenol -) 650 mg PO Q6H PRN PRN Reason: FEVER Last Admin: 09/13/19 06:32 Dose: 650 mg Documented by: Amino Acids (Prosource No Carb Liquid Pkt) 30 ml PO BID@0800,1730 [facility] Last Admin: 09/19/19 08:24 Dose: 30 ml Documented by: Atorvastatin Calcium (Lipitor -) 20 mg PO HS [facility] Last Admin: 09/18/19 22:11 Dose: 20 mg Documented by: Diltiazem HCl (Cardizem Cd -) 240 mg PO DAILY [facility] Last Admin: 09/19/19 09:24 Dose: 240 mg Documented by: Diphenoxylate HCl/Atropine (Lomotil -) 1 combo PO Q8H PRN PRN Reason: DIARRHEA Last Admin: 09/16/19 15:11 Dose: 1 combo Documented by: Ferrous Sulfate (Feosol -) 325 mg PO DAILY [facility] Last Admin: 09/19/19 09:24 Dose: 325 mg Documented by: Furosemide (Lasix Injection -) 40 mg IVPUSH DAILY [facility] Last Admin: 09/19/19 09:25 Dose: 40 mg Documented by: Insulin Aspart (Novolog Vial Sliding Scale -) 1 vial SQ [facility]; Protocol Last Admin: 09/19/19 07:12 Dose: Not Given Documented by: Levothyroxine Sodium (Synthroid -) 25 mcg PO BK [facility] Last Admin: 09/19/19 07:12 Dose: 25 mcg Documented by: Memantine (Namenda -) 5 mg PO DAILY [facility] Last Admin: 09/19/19 09:24 Dose: 5 mg Documented by: Metformin HCl (Glucophage -) 500 mg PO ACBK [facility] Last Admin: 09/19/19 07:12 Dose: 500 mg Documented by: Metoprolol Tartrate (Lopressor -) 50 mg PO BID [facility] Last Admin: 09/19/19 09:24 Dose: 50 mg Documented by: Pantoprazole Sodium (Protonix -) 40 mg PO DAILY [facility] Last Admin: 09/19/19 09:24 Dose: 40 mg Documented by: Potassium Chloride (K-Dur -) 20 meq PO DAILY [facility] Last Admin: 09/19/19 09:24 Dose: 20 meq Documented by: Prednisone (Deltasone -) 40 mg PO DAILY [facility] Last Admin: 09/19/19 09:24 Dose: 40 mg Documented by: Rivaroxaban (Xarelto) 20 mg PO DAILY@1800 [facility] Last Admin: 09/18/19 17:07 Dose: 20 mg Documented by: A/P Acute COPD Exacerbation Paroxysmal Atrial Fibrillation LV Diastolic Dysfunction HTN DM Hyperlipidemia Dementia Hyothyroidism - prednisone taper - inhaled bronchodilators - O2 to keep SpO2 >90% - glucose control while on systemic steroids - rate controlled - continue anticoagulation
--- NOTE | 2019-09-19 15:05 | PN ---
Physical Exam: Heme-onc resident note SUBJECTIVE: Patient seen and examined at bedside. Feeling well, without complaint. OBJECTIVE: Vital Signs Period Temp Pulse Resp BP Sys/Reina Pulse Ox Last 24 Hr 97.8 F-98.2 F 53-59 20-20 142-166/68-93 95-96 general: resting in bed, in NAD HEENT: NCAT neck: supple, no cervical lymphadenopathy cardio: S1, S2 RRR. no r/m/g pulm: +decreased breath sounds, no rhonchi or crackles, no accessory m usage abdomen: obese, nontender, nondistended LE: 2+ pulses, no edema neuro: research assistant 2-12 grossly intact Laboratory Results 09/19/19 09/19/19 09/19/19 06:00 06:05 12:25 WBC 21.5 H Hgb 12.9 Hct 40.1 Plt Count 355 Sodium 138 Potassium 4.5 Chloride 100 Carbon Dioxide 30 Anion Gap 8 BUN 40.2 H Creatinine 1.2 Est GFR (CKD-EPI)AfAm 50.13 Est GFR (CKD-EPI)NonAf 43.25 POC Glucometer 189 Random Glucose 119 H Calcium 8.1 L ALT 62 H Alkaline Phosphatase 112 Total Protein 6.3 L Albumin 3.0 L ASSESSMENT/PLAN: 79yo F with h/o mild dementia, prior CVA, HTN, HLD, Atrial fibrillation, CHF with known RBBB, COPD, prior colon Ca, hypothyroidism who originally presented from [facility] due to positive blood cultures for Gram + cocci in clusters on 08/24/2019. #neutrophilia #acute copd exacerbation #LV diastolic dysfunction #htn #dm #HLD #dementia #hypothyroid -neutrophilia may be due to stress response, glucocorticoids, infection -will need to do w/u to r/o 1' hematologic disorder: peripheral blood smear review by path, flow cytometry (peripheral blood, jak2 [id number], bcr- ABL. form completed -rest per primary team -will continue to follow plan discussed with Dr. Chel Wyatt MD PGY-3 Heme-onc team Visit type - Emergency Visit Emergency Visit: No - New Patient This patient is new to me today: Yes Date on this admission: 09/19/19 - Critical Care Critical Care patient: No
--- NOTE | 2019-09-19 15:50 | PN ---
Progress Note, Physician Chief Complaint: AWAKE ALERT FEELING BETTER NO FEVERS - Current Medication List Current Medications: Active Medications Acetaminophen (Tylenol -) 650 mg PO Q6H PRN PRN Reason: FEVER Last Admin: 09/13/19 06:32 Dose: 650 mg Documented by: Amino Acids (Prosource No Carb Liquid Pkt) 30 ml PO BID@0800,1730 [facility] Last Admin: 09/19/19 08:24 Dose: 30 ml Documented by: Atorvastatin Calcium (Lipitor -) 20 mg PO HS [facility] Last Admin: 09/18/19 22:11 Dose: 20 mg Documented by: Diltiazem HCl (Cardizem Cd -) 240 mg PO DAILY [facility] Last Admin: 09/19/19 09:24 Dose: 240 mg Documented by: Ferrous Sulfate (Feosol -) 325 mg PO DAILY [facility] Last Admin: 09/19/19 09:24 Dose: 325 mg Documented by: Furosemide (Lasix Injection -) 40 mg IVPUSH DAILY [facility] Last Admin: 09/19/19 09:25 Dose: 40 mg Documented by: Insulin Aspart (Novolog Vial Sliding Scale -) 1 vial SQ [facility]; Protocol Last Admin: 09/19/19 13:00 Dose: 2 units Documented by: [facility]ine [facility] -) [facility] Last Admin: 09/19/19 07:12 Dose: 25 mcg Documented by: Memantine (Namenda -) 5 mg PO DAILY [facility] Last Admin: 09/19/19 09:24 Dose: 5 mg Documented by: Metformin HCl (Glucophage -) 500 mg PO ACBK [facility] Last Admin: 09/19/19 07:12 Dose: 500 mg Documented by: Metoprolol Tartrate (Lopressor -) 50 mg PO BID [facility] Last Admin: 09/19/19 09:24 Dose: 50 mg Documented by: Pantoprazole Sodium (Protonix -) 40 mg PO DAILY [facility] Last Admin: 09/19/19 09:24 Dose: 40 mg Documented by: Potassium Chloride (K-Dur -) 20 meq PO DAILY [facility] Last Admin: 09/19/19 09:24 Dose: 20 meq Documented by: Prednisone (Deltasone -) 30 mg PO DAILY [facility] Rivaroxaban (Xarelto) 20 mg PO DAILY@1800 [facility] Last Admin: 09/18/19 17:07 Dose: 20 mg Documented by: - Objective Vital Signs: Vital Signs Temperature 98.2 F 09/19/19 14:00 Pulse Rate 58 L 09/19/19 14:00 Respiratory Rate 20 09/19/19 14:00 Blood Pressure 137/68 09/19/19 14:00 O2 Sat by Pulse Oximetry (%) 95 09/19/19 09:00 Constitutional: Yes: No Distress Cardiovascular: Yes: Pulse Irregular Respiratory: Yes: Diminished Gastrointestinal: Yes: Soft Genitourinary: Yes: Incontinence Edema: Yes Edema: LLE: Trace, RLE: Trace Integumentary: Yes: WNL Wound/Incision: Yes: Clean/Dry Neurological: Yes: Pre-Existing Deficit ...Motor Strength: LLE, RLE Labs: CBC, BMP 09/19/19 06:05 09/19/19 06:00 INR, PTT INR 1.34 (0.83-1.09) H 09/09/19 15:23 Problem List - Problems (1) CHF (congestive heart failure) Code(s): I50.9 - HEART FAILURE, UNSPECIFIED (2) Dementia Code(s): F03.90 - UNSPECIFIED DEMENTIA WITHOUT BEHAVIORAL DISTURBANCE (3) Rapid atrial fibrillation Code(s): I48.91 - UNSPECIFIED ATRIAL FIBRILLATION (4) Sepsis Code(s): A41.9 - SEPSIS, UNSPECIFIED ORGANISM (5) Anemia Code(s): D64.9 - ANEMIA, UNSPECIFIED (6) Asthma Code(s): J45.909 - UNSPECIFIED ASTHMA, UNCOMPLICATED (7) Diabetes Code(s): E11.9 - TYPE 2 DIABETES MELLITUS WITHOUT COMPLICATIONS (8) HTN (hypertension) Code(s): I10 - ESSENTIAL (PRIMARY) HYPERTENSION (9) History of colon cancer Code(s): Z85.038 - PERSONAL HISTORY OF MALIGNANT NEOPLASM OF LARGE INTESTINE (10) Hypothyroid Code(s): E03.9 - HYPOTHYROIDISM, UNSPECIFIED (11) RBBB Code(s): I45.10 - UNSPECIFIED RIGHT BUNDLE-BRANCH BLOCK Assessment/Plan LEUKOCYTOSIS PERSISTS ON IV ABX FOR GRAM + COCCI IN [facility] AT [facility] STARTED ON ZOSYN AND VANCO WITH PICC LINE ZOSYN STARTED 08/25 -09/06 VANCO 09/01-09/06 ADMITTED Aug HERE AT [facility] BLOOD CULTURES NEGATIVE ONCOLOGY CONSULT DR TORRES PERSISTENT LEUKOCYTOSIS R/O MDS WILL D/W DR BRAVO FROM ID DVT PROPHYLAXIS ANTIBIOTICS ARE JAELYN COMPLETED DIARRHEA WORSE CDIFF NEGATIVE LOMITIL STARTED REPLETE KCL/MAGNESIUM IVF FOR AZOTEMIA
[2019-09-19] MEDS ORDERED: INSULIN (NOVOLOG) ASPART 100 UNITS/ML 10ML VIAL ONE (17:36)
[2019-09-19] MEDS: RIVAROXABAN 20 MG TABLET PO SCH (17:39)
[2019-09-19] MEDS: ATORVASTATIN CA 20 MG TABLET (FP) PO SCH (21:12)
[2019-09-20] MEDS: metFORMIN HCL 500 MG TABLET (FP) PO SCH (06:18)
[2019-09-20] MEDS: LEVOTHYROXINE NA 25 MCG TABLET (FP) PO SCH (06:18)
[2019-09-20] MEDS: INSULIN SLIDING SCALE (NOVOLOG) 1 VIAL SQ SCH (06:20)
--- NOTE | 2019-09-20 07:42 | PN ---
Progress Note (short form) - Note Progress Note: PAtient seen and examined Reports feeling well Denies any complaints AFVSS Cor: RSR, No murmurs, No gallops Lungs: Clear to P&A Abd: Soft, Normal bowel sounds, No organomegaly Ext:No significant edema Labs/MEds reviewed A/P 79yo F with h/o mild dementia, prior CVA, HTN, HLD, Atrial fibrillation, CHF with known RBBB, COPD, prior colon Ca, hypothyroidism who originally presented from [facility] due to positive blood cultures for Gram + cocci in clusters on 08/24/2019. #neutrophilia #acute copd exacerbation #LV diastolic dysfunction #htn #dm #HLD #dementia #hypothyroid -neutrophilia may be due to stress response, glucocorticoids, infection -will need to do w/u to r/o 1' hematologic disorder, as it has been noted since 2014 in [employer] but unsure , if all these counts were related to COPD exacerbation eposodes/infection, inpatient : peripheral blood smear review by path, flow cytometry (peripheral blood, [id number] [id number], bcr- ABL. form completed -rest per primary team -will continue to follow
[2019-09-20] MEDS: AMINO ACIDS/PROTEIN HYDROLYS 30 ML LIQUID.PKT PO SCH (08:02)
--- NOTE | 2019-09-20 08:27 | DS ---
Physical Examination Vital Signs: Vital Signs Temperature 97.6 F 09/20/19 05:28 Pulse Rate 53 L 09/20/19 05:28 Respiratory Rate 18 09/20/19 05:28 Blood Pressure 146/73 09/20/19 05:28 O2 Sat by Pulse Oximetry (%) 96 09/19/19 22:00 Constitutional: Yes: Mild Distress Cardiovascular: Yes: Pulse Irregular Respiratory: Yes: Diminished Gastrointestinal: Yes: Soft, Abdomen, Obese Renal/: Yes: Incontinence Musculoskeletal: Yes: Muscle Weakness Edema: Yes Neurological: Yes: Confusion, Pre-Existing Deficit Labs: CBC, BMP 09/19/19 06:05 09/19/19 06:00 Discharge Summary Problems reviewed: Yes Reason For Visit: NSTEMI Current Active Problems Afib (Acute) Bacteremia (Acute) CHF (congestive heart failure) (Acute) COPD (chronic obstructive pulmonary disease) (Acute) Dementia (Acute) Electrolyte abnormality (Acute) Hypomagnesemia (Acute) Leukocytosis (Acute) Lytic lesion of bone on x-ray (Acute) Rapid atrial fibrillation (Acute) Sepsis (Acute) Procedures: Principal: CT SCANS, LABS , CX Hospital Course: ADMITTED SEPSIS WORKUP, CHF, SHORT OF BREATH TREATED WITH IV ABX FOR GRAM + CLUSTERS, LASIX IV FOR CHF, STEROIDS FOR COPD, CHRONIC LEUKOCYTOSIS LIKELY STRESS VS STEROIDS. FOLLOW UP WITH HEMATOLOGY OUTPATIENT Goals: SNF WITH PT/REHAB Condition: Improved - Instructions Diet, Activity, Other Instructions: SEE DR KASPER/DR TORRES OUTPATIENT FOLLOW UP CHRONIC LEUKOCYTOSIS CHECK CBC/BMP WITH MAGNESIUM WEEKLY Referrals: Marquita Martin [Primary Care Provider] - Disposition: LONG-TERM FACILITY - Home Medications Comprehensive Discharge Medication List: Ambulatory Orders Albuterol 0.083% Nebulizer Gail [Ventolin 0.083% Nebulizer Soln -] 1 neb NEB QID 02/08/16 Diltiazem HCl [Diltiazem 24Hr ER (Cd)] 180 mg PO DAILY 02/08/16 Polyethylene Glycol 3350 [Gavilax] 17 gm PO DAILY 02/08/16 metFORMIN HCL [Metformin HCl] 500 mg PO DAILY 02/08/16 Acetaminophen [Tylenol] 650 mg PO Q6H PRN #0 02/11/16 Ferrous Sulfate [Feosol] 325 mg PO DAILY ud 02/11/16 Cyanocobalamin Vit B-12 Inj. [Vitamin B12 Injection -] 1,000 mcg IM WEEKLY 09/14/19 Digoxin [Lanoxin -] 0.125 mg PO DAILY 09/14/19 Furosemide Injection [Lasix Injection -] 40 mg IM BID 09/14/19 Guaifenesin/Dextromethorphan [Guaifenesin-Dm 100-10 mg/5 ml] 10 ml PO Q4H PRN 09/14/19 Levothyroxine [Synthroid -] 25 mcg PO DAILY 09/14/19 Memantine HCl [Namenda -] 5 mg PO DAILY 09/14/19 Prednisolone 60 mg PO DAILY 09/14/19 Rivaroxaban [Xarelto -] 20 mg PO DAILY 09/14/19
[2019-09-20 09:16] VITALS: BP 151/80; PULSE 52; TEMP 98.7
[2019-09-20] MEDS ORDERED: PT OWN MED DRAWER 7, Y5N ONE (09:50)
[2019-09-20] MEDS ORDERED: predniSONE 20 MG TABLET (UD) PO SCH (10:00)
[2019-09-20] MEDS: FERROUS SO4 325 MG TABLET (FP) PO SCH (10:02)
[2019-09-20] MEDS: MEMANTINE HCL 5 MG TABLET (UD) PO SCH (10:02)
[2019-09-20] MEDS: METOPROLOL TARTRATE 50 MG TABLET (FP) PO SCH (10:02)
[2019-09-20] MEDS: PANTOPRAZOLE 40 MG TABLET PO SCH (10:03)
[2019-09-20] MEDS: POTASSIUM CHLORIDE TABS 20 MEQ TABLET.ER (FP) PO SCH (10:03)
[2019-09-20] MEDS: FUROSEMIDE 40 MG/4 ML INJECTABLE VIAL IVPUSH SCH (10:10)
--- NOTE | 2019-09-21 15:05 | PATH ---
Surgical Pathology Report Patient Name: FRANCHESKA SHEEHAN [facility]. Rec. #: [id number] /Age/Gender: 1940 (Age: 79) / F Account: [id number] Location: 4 TELEMETRY U Taken: 09/19/2019 Received: 09/20/2019 Reported: 09/21/2019 Physicians: Chel Martinez M.D. Specimen(s) Received PERIPHERAL BLOOD Clinical History Leukocytosis Final Diagnosis COMPREHENSIVE FLOW [facility] [place] [place] ([id number]) INTERPRETATION: Granulocytosis with no discrete atypical flow cytometric findings seen. Phenotype: Granulocytes are increased but show no detectable aberrant marker expression. Blasts are not increased. Lymphocytes are proportionally decreased and include polyclonal B cells, NK cells and immunophenotypically normal CD4+ and CD8+ T cells in normal proportions. No evidence of a clonal lymphoid expansion. See [facility] report for additional details. Electronically Signed Frances Loza M.D. Addendum Reported: 09/23/2019 Addendum Diagnosis JAK2 (V617F) MUTATION ANALYSIS BY PCR [facility] [place] [place] ([id number]) shows the following: RESULTS: JAK2 V617F Mutation Status: Not Detected INTERPRETATION: Negative for JAK2 (V617F) Mutation. BCR-ABL GENE REARRANGEMENT (IS) ANALYSIS performed and interpreted at [place], [place] ([id number]) shows the following: RESULTS: Negative BCR/ABL Major breakpoints (b2a2 and b3a2): Not Detected BCR/ABL Minor breakpoint (e1a2): Not Detected INTERPRETATION: No BCR-ABL translocation was detected in this sample. See [facility]ge report for additional details. Frances Loza M.D. Gross Description Received are 2 green top tubes and 4 lavender top tubes of peripheral blood which are sent to [email or web address]. DL/09/20/2019 saudi/09/20/2019
== END 2019-09-20 11:20 | DRG 872 ==
LOC: JER 13:38 → JERBED 16:35 → J4W 20:33
PROVIDERS: ADMIT Family Medicine; ATTEND Family Medicine
DX: A41.89 Other specified sepsis (principal); I47.1 Supraventricular tachycardia; I24.8 Other forms of acute ischemic heart disease; I69.359 Hemiplegia and hemiparesis following cerebral infarction affecting unspecified side; I48.20 Chronic atrial fibrillation, unspecified; E11.9 Type 2 diabetes mellitus without complications; E03.9 Hypothyroidism, unspecified; F03.90 Unspecified dementia, unspecified severity, without behavioral disturbance, psychotic disturbance, mood disturbance, and anxiety; K21.9 Gastro-esophageal reflux disease without esophagitis; I48.0 Paroxysmal atrial fibrillation; I11.0 Hypertensive heart disease with heart failure; I50.9 Heart failure, unspecified; D64.9 Anemia, unspecified; J44.9 Chronic obstructive pulmonary disease, unspecified; E66.9 Obesity, unspecified; Z68.25 Body mass index [BMI] 25.0-25.9, adult; R00.0 Tachycardia, unspecified; M89.9 Disorder of bone, unspecified; E83.42 Hypomagnesemia; E87.6 Hypokalemia; D72.829 Elevated white blood cell count, unspecified; I45.10 Unspecified right bundle-branch block; Z86.718 Personal history of other venous thrombosis and embolism; Z85.038 Personal history of other malignant neoplasm of large intestine
CPT/HCPCS: 36415; 71045-TC-FY; 74177-TC; 80048; 80053; 80061; 80162; 81003; 82308; 82550; 82553; 82962; 83036; 83721; 83735; 83880; 84100; 84439; 84443; 84484; 85025; 85027; 85610; 87040; 87070; 87086; 87205; 87324; 87449; 88300-TC; 93005; 93010; 93306-TC; 94640; 97116-GP; 97161-GP; 99285-25; G0480; J7030; Q9967